=== PATIENT | male | born 1955 | race Two or more races ===

== ENCOUNTER 2025-01-29 15:49 | Inpatient (IN) | payer MEDICARE, MEDICAID ==
[~2025-01-29] VITALS: Ht 172.7 cm; Wt 60.5 kg
[2025-01-29] MEDS: SODIUM CHLORIDE 0.9% 500 ML IV ONE (16:15)
--- NOTE | 2025-01-29 16:18 | ED.PDOC ---
History of Present Illness HPI Comments 69 year old male with PMHx CHF, CKF, hyperkalemia, acute acidosis, kidney stones presents to the ED via EMS with a chief compliant of nausea/vomiting onset this morning around 03:50. Patient was transferred from [facility] due to hyperkalemia and kidney stones. Prior to transfer, patient was given Dilaudid for pain. CT brain was negative, CT abdomen/pelvis showed LT and RT hydronephrosis, acidotic ABG 7.26. Patient states he experienced about 4 emesis episodes since this morning. Denies chest pain, shortness of breath, fever, chills, headache. No other symptoms or modifying factors present at this time. Chief Complaint: Nausea/Vomiting Time Seen by MD: 16:05 Reviewed Notes: Nurses Notes, Medications, Allergies Allergies: Coded Allergies: NO KNOWN ALLERGIES (Unverified , 01/29/25) Information Source: Patient, Emergency Med Personnel Mode of Arrival: EMS Severity: Moderate Timing: Hours Duration: Since onset Prehospital treatment: Pain Meds Past Medical History PAST MEDICAL HISTORY: CHF, CKF, Kidney Stones Past Medical History (Other): hyperkalemia, acute acidosis Surgical History: Denies all surgeries Family History Family History: Reviewed,noncontributory to illness, No family hx of Cancer, No family hx of DM, No family hx of Heart misty, No family hx of HTN, No family hx ofKidney misty, No family hx of Liver misty, No family hx of Lung misty, No family hx of Stroke Social History Smoker: Non-Smoker Alcohol: Denies ETOH Use Drugs: Methamphetamine Lives In: Home Constitutional: denies: chills, diaphoresis, fatigue, fever, malaise, sweats, weakness, others EENTM: denies: blurred vision, double vision, ear bleeding, ear discharge, ear drainage, ear pain, ear ringing, eye pain, eye redness, hearing loss, mouth pain, mouth swelling, nasal discharge, nose bleeding, nose congestion, nose pain, photophobia, tearing, throat pain, throat swelling, voice changes, others Respiratory: denies: cough, hemoptysis, orthopnea, SOB at rest, shortness of breath, SOB with excertion, stridor, wheezing, others Cardiovascular: denies: chest pain, dizzy spells, diaphoresis, Dyspnea on exertion, edema, irregular heart beat, left arm pain, lightheadedness, palpitations, PND, syncope, others Gastrointestinal: reports: abdominal pain, nausea, vomiting; denies: abdomen distended, blood streaked bowels, constipated, diarrhea, dysphagia, difficulty swallowing, hematemesis, melena, poor appetite, poor fluid intake, rectal bleeding, rectal pain, others Genitourinary: denies: burning, dysuria, flank pain, frequency, hematuria, incontinence, penile discharge, penile sore, pain, testicle pain, testicle swelling, urgency, others Neurological: denies: dizziness, fainting, headache, left sided numbness, left sided weakness, numbness, paresthesia, pre-existing deficit, right sided numbness, right sided weakness, seizure, speech problems, tingling, tremors, weakness, others Musculoskeletal: denies: back pain, gout, joint pain, joint swelling, muscle pain, muscle stiffness, neck pain, others Integumetry: denies: bruises, change in color, change in hair/nails, dryness, laceration, lesions, lumps, rash, wounds, others Allergic/Immunocompromised: denies: Difficulty Healing, Frequent Infections, Hives, Itching, others Hematologic/Lymphatic: denies: anemia, blood clots, easy bleeding, easy bruising, swollen glands, others Endocrine: denies: excessive hunger, excessive sweating, excessive thirst, excessive urination, flushing, intolerance to cold, intolerance to heat, unexplained weight gain, unexplained weight loss, others Psychiatric: denies: anxiety, bipolar disorder, depression, hopeless, panic disorder, schizophrenia, sleepless, suicidal, others All Other Systems: Reviewed and Negative Physical Exam General Appearance: Moderate Distress HEENT: Normal ENT Inspection, Pharynx Normal, TMs Normal Neck: Full Range of Motion, Non-Tender, Normal, Normal Inspection Respiratory: Chest Non-Tender, Lungs Clear, No Accessory Muscle Use, No Respiratory Distress, Normal Breath Sounds Cardiovascular: No Edema, No JVD, No Murmur, No Gallop, Normal Peripheral Pulses, Regular Rate/Rhythm Breast Exam: Deferred Gastrointestinal: No Organomegaly, Non Tender, No Pulsatile Mass, Normal Bowel Sounds, Soft Genitalia: Deferred Pelvic: Deferred Rectal: Deferred Extremities: No calf tenderness, Normal capillary refill, No pedal edema Musculoskeletal : Location: Bilateral Extremity Location: Back Apperance: Tenderness: Moderate Neurologic: Alert, editor II-XII nml as Tested, Motor Weakness, Normal Affect, Normal Mood, No Sensory Deficits Cerebellar Function: Normal Reflexes: Normal Skin: Dry, Normal Color, Warm Lymphatic: No Adenopathy Was a procedure done? Was a procedure done?: No EKG EKG : Pulse Rate (adult): 114 Cardiac Rhythm: ST Block: RBBB Differential Dx Considerations may include: Generalized weakness, electrolyte imbalance, dehydration, UTI, kidney stones X-Ray, Labs, Meds, VS Vital Signs Date Time Temp Pulse Resp B/P (MAP) Pulse Ox O2 Delivery O2 Flow Rate FiO2 01/29/25 16:25 114 01/29/25 15:51 97.9 97 16 114/63 97 97.9 Lab Test 01/29/25 16:45 Range/Units White Blood Count 9.3 4.4-10.8 10^3/uL Red Blood Count 3.35 L 4.5-5.90 10^6/uL Hemoglobin 8.6 L 13.5-17.5 g/dL Hematocrit 28.7 L 41.0-53.0 % Mean Corpuscular Volume 85.7 80.0-100.0 fL Mean Corpuscular Hemoglobin 25.7 L 28.0-32.0 pg Mean Corpuscular Hemoglobin Concent 29.9 L 32.0-36.0 g/dL Red Cell Distribution Width 21.3 H 11.8-14.3 % Platelet Count 201 140-450 10^3/uL Mean Platelet Volume 7.6 6.9-10.8 fL Neutrophils (%) (Auto) 83.1 H 37.0-80.0 % Lymphocytes (%) (Auto) 7.3 L 10.0-50.0 % Monocytes (%) (Auto) 8.9 0.0-12.0 % Eosinophils (%) (Auto) 0.3 0.0-7.0 % Basophils (%) (Auto) 0.4 0.0-2.0 % Neutrophils # (Auto) 7.7 1.6-8.6 10 ^3/uL Lymphocytes # (Auto) 0.7 0.4-5.4 10 ^3/uL Monocytes # (Auto) 0.8 0-1.3 10 ^3/uL Eosinophils # (Auto) 0 0-0.8 10 ^3/uL Basophils # (Auto) 0 0-0.2 10 ^3/uL Nucleated Red Blood Cells 0.3 % Sodium Level 141 136-145 mmol/L Potassium Level 5.0 3.5-5.1 mmol/L Chloride Level 103 98-107 mmol/L Carbon Dioxide Level 18 L 20-31 mmol/L Anion Gap 20 H 5-15 Blood Urea Nitrogen Pending Creatinine Pending Glomerular Filtration Rate Calc Pending BUN/Creatinine Ratio Pending Serum Glucose Pending Calcium Level 8.7 8.7-10.4 mg/dL Troponin I High Sensitivity Pending The CBC shows a hemoglobin of 8.6 and hematocrit of 28.7 The platelets are 201 The chemistry panel is within normal limits. The troponin level is pending The patient was transferred from [facility] for possible urology consult. The patient's CAT scan revealed that the patient has bilateral kidney stones with hydronephrosis We are going to repeat a CAT scan of the abdomen and pelvis here but at this time the patient will be admitted A urology Images Reviewed?: Images reviewed and evaluated by me Time of 1ST Reevaluation: 16:35 Reevaluation 1ST: Unchanged Patient Education/Counseling: Diagnosis, Treatment, Prognosis Family Education/Counseling: No Family Present ( ) SEPSIS Sepsis Screen Date sepsis recognized/suspect: Jan 29, 2025 Time Sepsis recognized/suspect: 1553 Recent Procedure: No On Antibiotic Therapy: No Respiratory Rate >20: No Heart Rate >90: Yes Temp<36 C (96.8 F) or >38.3 C: No SBP <90 or MAP <65 mmHG: No New Acute Mental Status Change: No Is the patient on CPAP, BIPAP,: No Physician Orders Troponin-I Hs (01/29/25 16:14) Basic Metabolic Panel (01/29/25 16:14) Heplock Iv (01/29/25 16:14) Terminal Make Up Operator (01/29/25 16:14) Blood Pressure (01/29/25 16:14) Pulse Oximetry (01/29/25 16:14) Vital Signs Date Time Temp Pulse Resp B/P (MAP) Pulse Ox O2 Delivery O2 Flow Rate FiO2 01/29/25 16:25 114 01/29/25 15:51 97.9 97 16 114/63 97 97.9 Laboratory Tests Test 10/13/25 16:45 White Blood Count 9.3 10^3/uL (4.4-10.8) Departure 1 Departure Time of Disposition: 17:21 Impression: Primary Impression: Hyperkalemia Additional Impressions: Bilateral hydronephrosis Generalized weakness Disposition: ADMITTED INPATIENT Admit to: Med Surg Condition: Fair Critical Care Note Critical Care Time?: No Stability Stability form required: Yes Unstable for transfer: ED Physician Assesment (Clinical assesment) Heart Score Heart Score: Heart Score Response (Comments) Value History N/A 0 EKG N/A 0 Age N/A 0 Risk Factors N/A 0 Troponin N/A 0 Total 0 I personally scribed for VELMA PLUNKETT MD ([email or web address]) on 01/29/25 at 16:18. Electronically submitted by Harini Zapata ([email or web address]). I personally scribed for VELMA PLUNKETT MD ([email or web address]) on 01/29/25 at 16:25. Electronically submitted by Harini Zapata ([email or web address]). VELMA PLUNKETT MD Jan 29, 2025 16:18
[2025-01-29 17:03] LABS: Hematocrit 28.7 % (41.0-53.0); Hemoglobin 8.6 g/dL (13.5-17.5); Mean Corpuscular Hemoglobin 25.7 pg (28.0-32.0); Mean Corpuscular Volume 85.7 fL (80.0-100.0); Nucleated Red Blood Cells % 0.3 %
[2025-01-29 17:09] LABS: Anion Gap 20 (5-15); Chloride 103 mmol/L (98-107); Potassium 5.0 mmol/L (3.5-5.1); Sodium 141 mmol/L (136-145)
[2025-01-29 17:11] LABS: Calcium 8.7 mg/dL (8.7-10.4); Carbon Dioxide 18 mmol/L (20-31)
[2025-01-29 17:15] LABS: BUN/Creatinine Ratio 15.3 (10.0-20.0)
[2025-01-29 17:16] LABS: Blood Urea Nitrogen 63 mg/dL (9-23)
[2025-01-29 17:27] LABS: Glucose 40 mg/dL (74-106)
[2025-01-29] MEDS: DEXTROSE 50% SYRINGE 50 ML IV ONE (17:41)
[2025-01-29] MEDS ORDERED: D5W 5% 1,000 ML IV ONE (18:15)
[2025-01-29] MEDS ORDERED: DEXTROSE (50%) 50ML SYRG IV PRN (18:15)
--- NOTE | 2025-01-29 18:48 | DVHHPRES ---
History of Present Illness Resident Creating Document: PENG GUILLORY RESIDENT History of Present Illness This is a 69-year-old male with past medical history of coronary artery disease with stent placement eight months ago, End-stage renal disease (makes urine and has had one dialysis done until now -yesterday at [facility]), came in with chief complaints of abdominal pain, vomiting and diarrhea. Patient was transferred from [facility] due to hyperkalemia and hydronephrosis with a Geo catheter and Allred's catheter in place. Prior to transfer, patient was given Dilaudid for pain. Patient states that he had a sharp generalized abdominal pain which was acute, rates it as 10/10, constant and associated with 4 episodes of watery vomiting, which was not mixed with blood, as well as 4 episodes of watery diarrhea, which did not have any blood or mucus in it. He has not been able to keep anything down and states that he feels weakness and could hardly walk since yesterday. On inquiry patient states that he took marijuana one week ago, which also cause nausea and for him to throw up. Patient denies having any food from outside, has had no sick contacts or taken any new medication recently. He does not have any shortness of breath, chest pain but complains still of nausea. Patient also reported that he had one dialysis session yesterday at [facility] and that his kidneys are not working. He is a poor historian and does not know the other comorbidities he has, he states he does not take any medication at home but that he took Plavix and aspirin for a few months and stopped a few months ago believing it didnt really help him in anyway. Vitals on admission: temperature 97.9, pulse 97, re spiratory rate 16, blood pressure 04/19 4 x 63, pulse oximetry 97 at room temperature. Labs show hemoglobin of 8.6, MCV 85.7. BUN 63, creatinine 4.12, troponins 267, serum glucose 40-34-38. AST 2145, ALT 1848, ALP 158 and high troponins 267>292. Patient is getting admitted for further workup Past medical history: Coronary artery disease with a stent placement eight months ago, end-stage renal disease on hemodialysis Past surgical history: Denies any surgery in the past Family history: Patient states both mother and father due to [place] Social history: Patient lives at his home with his friends. He smokes 4-5 cigarettes per day now but previously used to smoke one pack per day for the past 60 years. He states he quit alcohol 37 years ago and does not drink anymore. He takes marijuana occasionally and the last one was one week ago. Used to take methamphetamine a while back. Allergies: None Code status: Full code Review of Systems Constitutional: No: Fever, Chills, Sweats, Weakness, Malaise, Other Eyes: No: Pain, Vision change, Conjunctivae inflammation, Eyelid inflammation, Other, Redness ENT: No: Ear pain, Ear discharge, Nose pain, Nose discharge, Nose congestion, Mouth pain, Mouth swelling, Throat pain, Throat swelling, Other Respiratory: No: Cough, Dry, Shortness of breath, SOB with excertion, Wheezing, Hemoptysis, Pleuritic Pain, Sputum, Wheezing, Other Cardiovascular: No: Chest Pain, Palpitations, Orthopnea, Paroxysmal Noc. Dyspnea, Edema, Lt Headedness, Other Gastrointestinal: Nausea, Vomiting, Abdominal Pain, Diarrhea; No: Constipation, Melena, Hematochezia, Other Skin: No: Rash, Lesions, Jaundice, Bruising, Other Neurological: No: Weakness, Numbness, Incoordination, Change in speech, Confusion, Seizures, Other Allergies: Coded Allergies: NO KNOWN ALLERGIES (Unverified , 01/29/25) Medications Current Medications Medications Dose Ordered Sig/Natan Route Start Time Stop Time Status Last Admin Dose Admin Diagnostic Test (Pha) 1 strip Q6HR 01/30/25 00:00 Insulin Human Regular Q6HR SC 01/30/25 00:00 Dextrose 50 ml UD PRN IV 01/29/25 18:15 Pantoprazole Sodium 40 mg DAILY IV 01/30/25 10:00 Ondansetron HCl 4 mg Q6HPRN PRN IV 01/29/25 18:15 Acetaminophen 650 mg Q4HP PRN PO 01/29/25 18:15 Exam Vital Signs Vital Signs Date Time Temp Pulse Resp B/P (MAP) Pulse Ox O2 Delivery O2 Flow Rate FiO2 01/29/25 16:25 114 01/29/25 15:51 97.9 16 114/63 97 97.9 Exam Pt is lying on bed General Appearance: Alert, Oriented X3, Cooperative, mild distress HEENT: Atraumatic, Mucous membranes moist/pink Respiratory: Clear to auscultation, Normal air movement, No added sounds Cardiovascular: Regular rate, Normal S1, Normal S2, No murmurs Abdominal: Active bowel sounds, Soft, no distention, no tenderness Extremities: No edema, Normal pulses, No tenderness/swelling Skin: No Significant rash, except past surgical scars Neuro: Normal speech, sensorimotor deficits none Psych/Mental Status: Mental status NL, Mood NL Nurse was there as community health outreach worker during examination Labs/Xrays Labs Test 01/29/25 17:38 01/29/25 16:45 Range/Units POC Glucose 38 *L 70-106 mg/dl White Blood Count 9.3 4.4-10.8 10^3/uL Red Blood Count 3.35 L 4.5-5.90 10^6/uL Hemoglobin 8.6 L 13.5-17.5 g/dL Hematocrit 28.7 L 41.0-53.0 % Mean Corpuscular Volume 85.7 80.0-100.0 fL Mean Corpuscular Hemoglobin 25.7 L 28.0-32.0 pg Mean Corpuscular Hemoglobin Concent 29.9 L 32.0-36.0 g/dL Red Cell Distribution Width 21.3 H 11.8-14.3 % Platelet Count 201 140-450 10^3/uL Mean Platelet Volume 7.6 6.9-10.8 fL Neutrophils (%) (Auto) 83.1 H 37.0-80.0 % Lymphocytes (%) (Auto) 7.3 L 10.0-50.0 % Monocytes (%) (Auto) 8.9 0.0-12.0 % Eosinophils (%) (Auto) 0.3 0.0-7.0 % Basophils (%) (Auto) 0.4 0.0-2.0 % Neutrophils # (Auto) 7.7 1.6-8.6 10 ^3/uL Lymphocytes # (Auto) 0.7 0.4-5.4 10 ^3/uL Monocytes # (Auto) 0.8 0-1.3 10 ^3/uL Eosinophils # (Auto) 0 0-0.8 10 ^3/uL Basophils # (Auto) 0 0-0.2 10 ^3/uL Nucleated Red Blood Cells 0.3 % Sodium Level 141 136-145 mmol/L Potassium Level 5.0 3.5-5.1 mmol/L Chloride Level 103 98-107 mmol/L Carbon Dioxide Level 18 L 20-31 mmol/L Anion Gap 20 H 5-15 Blood Urea Nitrogen 63 H 9-23 mg/dL Creatinine 4.12 H 0.700-1.30 mg/dL Glomerular Filtration Rate Calc 15 >90 mL/min BUN/Creatinine Ratio 15.3 10.0-20.0 Serum Glucose 40 *L 74-106 mg/dL Calcium Level 8.7 8.7-10.4 mg/dL Troponin I High Sensitivity 267 *H </=54 ng/L SEPSIS Sepsis Screen Date sepsis recognized/suspect: Jan 29, 2025 Time Sepsis recognized/suspect: 1553 Recent Procedure: No On Antibiotic Therapy: No Respiratory Rate >20: No Heart Rate >90: Yes Temp<36 C (96.8 F) or >38.3 C: No SBP <90 or MAP <65 mmHG: No New Acute Mental Status Change: No Is the patient on CPAP, BIPAP,: No Physician Orders Heplock Iv (01/29/25 16:14) Java Integration Developer (01/29/25 16:14) Blood Pressure (01/29/25 16:14) Pulse Oximetry (01/29/25 16:14) Admit (01/29/25 18:06) Oxygen By Nasal Cannula (01/29/25 18:06) Stat Ekg For Chest Pain (01/29/25 18:06) Notify Md Of Changes From Base (01/29/25 18:06) Inpatient Nursing Aide For 24 Hours (01/29/25 18:06) Emergency Dysrhythmia Protocol (01/29/25 18:06) Rhythm Strips Once Every Shift (01/29/25 18:06) Electrocardigram (01/29/25 18:06) Troponin-I Hs (01/29/25 18:06) B-Type Natriuretic Peptide (01/29/25 18:06) Ct Ab Pel Wo Con-No Oral Or Iv (01/29/25 18:06) Troponin-I Hs (01/29/25 19:06) Urinalysis (01/29/25 18:06) Drug Screen (01/29/25 18:06) Blood Alcohol (01/29/25 18:06) Chest Portable (01/29/25 18:06) Glucose Blood (Accu-Chek Comfort Curve T (01/30/25 00:00) Insulin R (Human) (Insulin R) (01/30/25 00:00) Dextrose 50% Syringe (01/29/25 18:15) D5w 5% (Dextrose 5%) (01/29/25 18:15) Covid19 Antigen Dejah (01/29/25 ) Echo 2d Mode Cardiac Dop (01/29/25 18:06) *[facility] (01/29/25 18:06) Hepatic Panel (01/29/25 18:06) Clostridium Difficile Toxin (01/29/25 18:06) Stool Bacterial Culture (01/29/25 18:06) Stool Wbc (01/29/25 18:06) Pantoprazole (Protonix) (01/30/25 10:00) Ondansetron Hcl (Zofran) (01/29/25 18:15) Acetaminophen Tablet (Tylenol Tablet) (01/29/25 18:15) Aspirin Tablet (01/29/25 18:30) Atorvastatin (Lipitor) (01/29/25 18:30) Vital Signs Date Time Temp Pulse Resp B/P (MAP) Pulse Ox O2 Delivery O2 Flow Rate FiO2 01/29/25 16:25 114 01/29/25 15:51 97.9 97 16 114/63 97 97.9 Laboratory Tests Test 01/29/25 16:45 White Blood Count 9.3 10^3/uL (4.4-10.8) Assessment/Plan Assessment/Plan Possible gastroenteritis transaminitis -ast 2145, alt 1848, ALP 158 -500 bolus of 0.5 mL saline once -Zofran 4 mg IV q.6 PRN -pain control with acetaminophen 650 mg p.o. q.4 PRN -IV Protonix 40 mg -stool WBC -stool bacterial culture -Clostridium difficile -UA -UDS -serum alcohol level normal -hepatitis panel -COVID test -hepatic panel B/L hydronephrosis on imaging ESRD on hemodialysis Anemia of chronic disease due to above -creatinine 4.12, BUN 63 -CT abdomen pelvis without contrast shows: Relatively mild bilateral hydronephrosis with thickened urinary bladder and Allred catheter in-situ. -nephrology consult -allred catheter acute systolic/diastolic CHF NSTEMI likely Type 2 History of coronary artery disease -troponin I elevated 267>297 -BNP- 2207 -EKG -telemetry -Aspirin 162 mg once -Atorvastatin 80 mg -Echo,pending -CXR shows: Findings may represent congestive failure or fluid overload; In ternal jugular catheter in the superior vena cava above the right atrium. Hypoglycemia ( 40 on admission) -dextrose 50% syringe once -D5W 5% IV 30 mL/hour 1 bolus -Accu-Cheks GI prophylaxis: Protonix 40 mg IV daily Diet: Clear liquid diet Goals of care discussed with the patient for more than 27 minutes: Full code status Case discussed with Dr. Guajardo, patient and nurse. Plan discussed with: Patient My Orders Orders - PENG GUILLORY RESIDENT Procedure Category Date Status Time Admit ADMIT 01/29/25 Transmitted 18:06 Oxygen By Nasal RT 01/29/25 Transmitted Cannula 18:06 Stat Ekg For Chest [facility] 01/29/25 In Process Pain 18:06 Notify Md Of Changes [facility] 01/29/25 In Process From Base 18:06 Inpatient Nursing Aide For [facility] 01/29/25 In Process 24 Hours 18:06 Emergency Dysrhythmia [facility] 01/29/25 In Process Protocol 18:06 Rhythm Strips Once [facility] 01/29/25 In Process Every Shift 18:06 Electrocardigram EKG 01/29/25 Logged 18:06 Troponin-I Hs LAB 01/29/25 Logged 18:06 B-Type Natriuretic LAB 01/29/25 Logged Peptide 18:06 Ct Ab Pel Wo Con-No CT 01/29/25 Logged Oral Or Iv 18:06 Troponin-I Hs LAB 01/29/25 Logged 19:06 Urinalysis LAB 01/29/25 Logged 18:06 Drug Screen LAB 01/29/25 Logged 18:06 Blood Alcohol LAB 01/29/25 Logged 18:06 Chest Portable XY 01/29/25 Logged 18:06 Glucose Blood PHA 01/30/25 In Process (Accu-Chek Comfort 00:00 Insulin R (Human) PHA 01/30/25 In Process (Insulin R) 00:00 Dextrose 50% Syringe PHA 01/29/25 In Process 18:15 D5w 5% (Dextrose 5%) PHA 01/29/25 In Process 18:15 Covid19 Antigen Dejah LAB 01/29/25 Logged Echo 2d Mode Cardiac US 01/29/25 Logged DOP 18:06 *[facility] CONS 01/29/25 Transmitted -[place] 18:06 Hepatic Panel LAB 01/29/25 Logged 18:06 Clostridium Difficile MYKEL 01/29/25 Logged Toxin 18:06 Stool Bacterial MYKEL 01/29/25 Logged Culture 18:06 Stool Wbc LAB 01/29/25 Logged 18:06 Pantoprazole PHA 01/30/25 In Process (Protonix) 10:00 Ondansetron Hcl PHA 01/29/25 In Process (Zofran) 18:15 Acetaminophen Tablet PHA 01/29/25 In Process (Tylenol Tablet) 18:15 Aspirin Tablet PHA 01/29/25 Verified 18:30 Atorvastatin (Lipitor) PHA 01/29/25 Verified 18:30 PENG GUILLORY RESIDENT Jan 29, 2025 18:48
--- NOTE | 2025-01-29 19:09 | DVH ---
Exam: CT CT AB PEL WO CON-NO ORAL OR IV History: bilateral hydronephrosis Comparison Study: CT ABDOMEN PELVIS WITHOUT on DOS: 01/29/25, CT ABDOMEN PELVIS WITHOUT on DOS: 04/02, CT ABDOMEN PELVIS WITHOUT on DOS: 12/12/23, CT ABDOMEN PELVIS WITHOUT on DOS: 04/18/22 Technique: Multidetector spiral CT of the abdomen was performed from lung bases to pubic symphysis. I maging was performed without IV contrast. Axial, coronal and sagittal multiplanar reformats were obta ined from the axial data set by the technologist. Radiation Dose : 1. Abdomen/Pelvis: CTDIvol 7.18 mGy, DLP 386.03 mGy*cm. Findings: Evaluation of solid organs is limited due to lack of intravenous contrast use. Lung Bases: Mild dependent atelectatic changes. Liver: The liver is normal in size. No focal lesions. Gallbladder and Biliary Tree: Unremarkable Spleen: Unremarkable Pancreas: The pancreas is grossly normal in appearance. Adrenal Glands: Unremarkable Kidneys: Mild bilateral hydronephrosis. Multiple bilateral nonobstructing renal calculi. Few calcific ations in the left renal pelvis a little likely nonobstructing. Bladder: Baxter catheter in-situ. Urinary bladder appears thickened. Bowel: The stomach is grossly normal in appearance. Small bowel and colon are normal in caliber and d istribution. The appendix is not visualized; however, no secondary findings of acute appendicitis myriam ntified. Ascites: Absent Lymphadenopathy: No mesenteric, retroperitoneal or periportal lymphadenopathy. Abdominal Wall and Mesentery: Fat containing left inguinal hernia.. Vasculature: Diffuse vascular calcifications. Pelvic Organs: Unremarkable Musculoskeletal: No aggressive focal bony lesions, acute fractures or dislocation. IMPRESSION: Relatively mild bilateral hydronephrosis with thickened urinary bladder and Baxter catheter in-situ. Radiation optimization: All CT scans at this facility use at least one of these dose optimization earlene hniques: automated exposure control mA and/or kV adjustment per patient size (includes targeted exam s where dose is matched to clinical indication) or iterative reconstruction.
--- NOTE | 2025-01-29 19:13 | ECG ---
[facility] Test Date: 2025-01-29 Test Time: 16:00:14 Pat Name: AMARILIS RECINOS Department: [facility] ED Patient ID: [facility]-[id number] Room: [address] [place] [address] Gender: M Cp Bleacher Operator: shante : 1955 Requested By: PENG GUILLORY Order Number: [id number] Reading MD: Aman Saeed Measurements Intervals [place] Rate: 114 P: 0 GA: 128 QRS: 48 QRSD: 115 T: 239 QT: 382 QTc: 527 Interpretive Statements Sinus tachycardia Incomplete right bundle branch block Repol abnrm, prob ischemia, anterolateral lds Electronically Signed On 01-30-2025 15:24:38 PDT by Aman Saeed Please click the below link to view image of tracing.
--- NOTE | 2025-01-29 19:14 | DVH ---
CHEST RADIOGRAPH Indication: sob Technique: Single frontal view of the chest was obtained Comparison: XR CHEST 1 VIEW on DOS: 01/29/25, XR CHEST 1 VIEW on DOS: 01/29/25, XR CHEST 1 VIEW on DO S: 12/12/23 FINDINGS: Lines and Tubes: Right internal jugular catheter in place in the superior vena cava above the right a trium. Lungs: Mild pulmonary vascular congestion. Pleura: No effusion. No pneumothorax. Cardiomediastinal contours: Mild cardiomegaly Bones: No acute osseous abnormality. IMPRESSION: 1. Findings may represent congestive failure or fluid overload. 2. Internal jugular catheter in the superior vena cava above the right atrium.
[2025-01-29 19:30] LABS: Albumin 3.6 g/dL (3.2-4.8); Bilirubin, Direct 0.2 mg/dL (<0.3); Bilirubin, Total 0.5 mg/dL (0.2-1.0); Total Protein 7.2 g/dL (5.7-8.2)
[2025-01-29 19:31] LABS: Alkaline Phosphatase 158.0 U/L (46-116)
[2025-01-29 19:43] LABS: Alanine Aminotransferase 1848.0 U/L (7-40)
[2025-01-29] MEDS: ATORVASTATIN 20 MG TAB PO ONE (20:37)
[2025-01-29] MEDS: PANTOPRAZOLE 40 MG/10 ML VIAL INJ IV ONE (20:43)
[2025-01-29] MEDS: PIPERACILLIN-TAZOB 3.375GM 100 ML IV ONE (20:44)
[2025-01-29] MEDS: ONDANSETRON HCL 4 MG/2 ML VIAL IV PRN (20:50)
[2025-01-29 22:27] VITALS: PULSE 103; RESP 15; O2SAT 100
[2025-01-29] MEDS: HEPARIN SODIUM (PORCINE) 5000 UNITS/ML 1ML VIAL SC SCH (22:50)
[2025-01-30] MEDS: InsuLIN REG 1unit/0.01ml Soln (100units/ml) SC SCH
[2025-01-30] MEDS: ACCU-CHEK COMFORT CURVE STRIP VI SCH (00:14)
[2025-01-30 01:16] LABS: COVID19 ANTIGEN SOFIA FIA NEGATIVE (NEGATIVE)
[2025-01-30 03:03] LABS: Urine Protein, UAD 2+ (Negative); Urine WBC Clumps PRESENT /hpf (None Seen)
[2025-01-30 03:26] LABS: Amphetamine Screen, Urine Neg (NEGATIVE)
[2025-01-30 03:27] LABS: Cannabinoid Screen, Urine Neg (NEGATIVE); Opiate Scree,Urine Neg (NEGATIVE)
[2025-01-30 03:30] LABS: Barbiturate Scree,Urine Neg (NEGATIVE); Benzodiazephine Screen, Urine Neg (NEGATIVE); Cocaine Screen, Urine Neg (NEGATIVE); Phencyclidine Screen, Urine Neg (NEGATIVE)
[2025-01-30 05:47] LABS: Albumin 3.5 g/dL (3.2-4.8); Total Protein 7.0 g/dL (5.7-8.2)
[2025-01-30 05:58] LABS: Alkaline Phosphatase 155.0 U/L (46-116); Bilirubin, Direct 0.3 mg/dL (<0.3)
[2025-01-30 06:01] LABS: Alanine Aminotransferase 1708.0 U/L (7-40)
[2025-01-30 06:09] LABS: Bilirubin, Total 0.6 mg/dL (0.2-1.0)
[2025-01-30 06:44] LABS: Hematocrit 27.2 % (41.0-53.0); Hemoglobin 8.8 g/dL (13.5-17.5); Mean Corpuscular Hemoglobin 25.6 pg (28.0-32.0); Mean Corpuscular Volume 79.7 fL (80.0-100.0); Nucleated Red Blood Cells % 0.9 %
[2025-01-30 07:50] LABS: Albumin 3.4 g/dL (3.2-4.8); Anion Gap 14 (5-15); BUN/Creatinine Ratio 15.1 (10.0-20.0); Bilirubin, Total 0.6 mg/dL (0.2-1.0); Carbon Dioxide 26 mmol/L (20-31); Chloride 103 mmol/L (98-107); Sodium 143 mmol/L (136-145); Total Protein 6.8 g/dL (5.7-8.2)
[2025-01-30 08:00] VITALS: PULSE 104; RESP 20; O2SAT 99
[2025-01-30 08:02] LABS: Alanine Aminotransferase 1726 U/L (7-40); Alkaline Phosphatase 156 U/L (46-116); Blood Urea Nitrogen 72 mg/dL (9-23); Calcium 8.5 mg/dL (8.7-10.4); Glucose 64 mg/dL (74-106); Potassium 5.4 mmol/L (3.5-5.1)
[2025-01-30] MEDS: PANTOPRAZOLE 40 MG/10 ML VIAL INJ IV SCH (10:13)
[2025-01-30] MEDS: PIPERACILLIN-TAZOB 2.25GM 50 ML IV SCH (10:13)
--- NOTE | 2025-01-30 11:45 | ECG ---
[facility] Test Date: 2025-01-30 Test Time: 00:02:17 Pat Name: AMARILIS RECINOS Department: [facility] ED Patient ID: [facility]-[id number] Room: [address] [place] [address] Gender: M Limited Radiology Technician: HAMILTON : 1955 Requested By: PENG GUILLORY Order Number: [id number] Reading MD: Aman Saeed Measurements Intervals [place] Rate: 103 P: 74 AR: 173 QRS: -17 QRSD: 112 T: 221 QT: 369 QTc: 483 Interpretive Statements Sinus tachycardia Incomplete right bundle branch block Repol abnrm suggests ischemia, diffuse leads Electronically Signed On 01-30-2025 15:25:03 PDT by Aman Saeed Please click the below link to view image of tracing.
--- NOTE | 2025-01-30 14:37 | DVHPNRES ---
Progress Note Date Seen: Jan 30, 2025 Resident Creating Document: PENG GUILLORY RESIDENT Has the PT tested + for MRSA If YES, has PT been informed?: No Medical Necessity Reason Pt with a Central, PICC or Fol: No Subjective Review of Systems This is a 69-year-old male with past medical history of coronary artery disease with stent placement eight months ago, End-stage renal disease (makes urine and has had one dialysis done until now -yesterday at [facility]), came in with chief complaints of abdominal pain, vomiting and diarrhea. Patient was transferred from [facility] due to hyperkalemia and hydronephrosis with a Geo catheter and Allred's catheter in place. Prior to transfer, patient was given Dilaudid for pain. Patient states that he had a sharp generalized abdominal pain which was acute, rates it as 10/10, constant and associated with 4 episodes of watery vomiting, which was not mixed with blood, as well as 4 episodes of watery diarrhea, which did not have any blood or mucus in it. He has not been able to keep anything down and states that he feels weakness and could hardly walk since yesterday. On inquiry patient states that he took marijuana one week ago, which also cause nausea and for him to throw up. Patient denies having any food from outside, has had no sick contacts or taken any new medication recently. He does not have any shortness of breath, chest pain but complains still of nausea. Patient also reported that he had one dialysis session yesterday at [facility] and that his kidneys are not working. He is a poor historian and does not know the other comorbidities he has, he states he does not take any medication at home but that he took Plavix and aspirin for a few months and stopped a few months ago believing it didnt really help him in any way. Past medical history: Coronary artery disease with a stent placement eight months ago, end-stage renal disease on hemodialysis Past surgical history: Denies any surgery in the past Family history: Patient states both mother and father due to [place] Social history: Patient lives at his home with his friends. He smokes 4-5 cigarettes per day now but previously used to smoke one pack per day for the past 60 years. He states he quit alcohol 37 years ago and does not drink anymore. He takes marijuana occasionally and the last one was one week ago. Used to take methamphetamine a while back. Allergies: None Code status: Full code 01/30/2025: Patient was seen and examined by me today. Patient reports feeling much better than yesterday. We are doing a cardiology consult as there were T- wave changes multiple leads and troponins are up trending. cardiology on board. Objective vital signs Vital Sign Date Time Temp Pulse Resp B/P (MAP) Pulse Ox O2 Delivery O2 Flow Rate FiO2 01/30/25 12:00 103 18 111/69 (83) 100 01/30/25 08:00 98.4 98.4 01/30/25 08:00 Nasal Cannula* 2 28 Total Intake and Output 01/29/25 01/29/25 01/30/25 15:00 23:00 07:00 Intake Total 100 ml Balance 100 ml medications Current Medications Medications Dose Ordered Sig/Natan Route Start Time Stop Time Status Last Admin Dose Admin Diagnostic Test (Pha) 1 strip Q6HR 01/30/25 00:00 01/30/25 12:00 1 STRIP Insulin Human Regular Q6HR SC 01/30/25 00:00 Dextrose 50 ml UD PRN IV 01/29/25 18:15 Pantoprazole Sodium 40 mg DAILY IV 01/30/25 10:00 01/30/25 10:13 40 MG Ondansetron HCl 4 mg Q6HPRN PRN IV 01/29/25 18:15 01/29/25 20:50 4 MG Acetaminophen 650 mg Q4HP PRN PO 01/29/25 18:15 Heparin Sodium (Porcine) 5,000 units Q12HR SC 01/29/25 22:00 01/30/25 10:15 5,000 UNITS Piperacillin Sod/ Tazobactam Sod 50 ml @ 12.5 mls/hr Q12HR IV 01/30/25 10:00 01/30/25 10:13 12.5 MLS/HR Examination Pt is lying on bed General Appearance: Alert, Oriented X3, Cooperative, mild distress HEENT: Atraumatic, Mucous membranes moist/pink Respiratory: Clear to auscultation, Normal air movement, No added sounds Cardiovascular: Regular rate, Normal S1, Normal S2, No murmurs Abdominal: Active bowel sounds, Soft, no distention, no tenderness Extremities: No edema, Normal pulses, No tenderness/swelling Skin: No Significant rash, except past surgical scars Neuro: Normal speech, sensorimotor deficits none Psych/Mental Status: Mental status NL, Mood NL Nurse was there as tile mechanic during examination laboratory and microbiology Laboratory Tests 01/30/25 06:04 Test 01/30/25 06:04 Range/Units Serum Glucose 64 L 74-106 mg/dL Labs and/or images reviewed: Labs reviewed by me, Image(s) reviewed by me Problem List/Assessment/Plan Problem List/Assessment/Plan Possible gastroenteritis transaminitis -ast 2145, alt 1848, ALP 158, uptrending today -500 bolus of 0.5 mL saline once -Zofran 4 mg IV q.6 PRN -pain control with acetaminophen 650 mg p.o. q.4 PRN -IV Protonix 40 mg -stool WBC -stool bacterial culture -Clostridium difficile -UA -UDS -serum alcohol level normal -hepatitis panel -COVID test -hepatic panel B/L hydronephrosis on imaging ESRD on hemodialysis Anemia of chronic disease due to above UTI -creatinine 4.12, BUN 63 -CT abdomen pelvis without contrast shows: Relatively mild bilateral hydronephrosis with thickened urinary bladder and Allred catheter in-situ. -UA shows color brown, protein 2+, blood 3+, leukocyte esterase 2+, urine RBC 202, urine WBC clumps present, WBC 2795 -nephrology consult -allred catheter acute systolic/diastolic CHF NSTEMI likely Type 2 History of coronary artery disease -troponin I elevated 267> 297> 448> 585> 891> 814 -BNP- 2207 -EKG on 01/30: Sinus tachycardia; Incomplete right bundle branch block; Repol abnrm suggests ischemia, diffuse leads -telemetry -Aspirin 162 mg once -Atorvastatin 80 mg -Echo,pending -CXR shows: Findings may represent congestive failure or fluid overload; Internal jugular catheter in the superior vena cava above the right atrium. -cardiology consult suggested transthoracic echocardiogram to evaluate cardiac function, chest pain protocol heart score 8 points, HOSSEIN score of 4 points, heparin drip per ACS protocol, antiplatelet therapy, initiate lipid-lowering agent with improved LFTs, close cardiac surveillance Hypoglycemia ( 40 on admission) -dextrose 50% syringe once -D5W 5% IV 30 mL/hour 1 bolus -Accu-Cheks GI prophylaxis: Protonix 40 mg IV daily Diet: Clear liquid diet Goals of care discussed with the patient for more than 27 minutes: Full code status Case discussed with Dr. Guajardo, patient and nurse. Plan discussed with: Patient My Orders My Orders Orders - PENG GUILLORY RESIDENT Procedure Category Date Status Time Admit ADMIT 01/29/25 Transmitted 18:06 Oxygen By Nasal RT 01/29/25 Transmitted Cannula 18:06 Stat Ekg For Chest CINDY 01/29/25 In Process Pain 18:06 Notify Of Changes CINDY 01/29/25 In Process From Base 18:06 Director Government For CINDY 01/29/25 In Process 24 Hours 18:06 Emergency Dysrhythmia CINDY 01/29/25 In Process Protocol 18:06 Rhythm Strips Once CINDY 01/29/25 In Process Every Shift 18:06 Ct Ab Pel Wo Con-No CT 01/29/25 Resulted Oral Or Iv 18:06 Chest Portable XY 01/29/25 Resulted 18:06 Glucose Blood PHA 01/30/25 In Process (Accu-Chek Comfort 00:00 Insulin R (Human) PHA 01/30/25 In Process (Insulin R) 00:00 Dextrose 50% Syringe PHA 01/29/25 In Process 18:15 *Dr. [facility] CONS 01/29/25 Transmitted -[place] 18:06 Clostridium Difficile MYKEL 01/29/25 Logged Toxin 18:06 Stool Bacterial MYKEL 01/29/25 Logged Culture 18:06 Stool Wbc LAB 01/29/25 Logged 18:06 Pantoprazole PHA 01/30/25 In Process (Protonix) 10:00 Ondansetron Hcl PHA 01/29/25 In Process (Zofran) 18:15 Acetaminophen Tablet PHA 01/29/25 In Process (Tylenol Tablet) 18:15 Acute Hepatitis Panel LAB 01/29/25 In Process 19:56 Heparin Sodium PHA 01/29/25 In Process (Porcine) 22:00 Mrsa Screen MYKEL 01/29/25 Uncollected 19:56 Urine Bacterial MYKEL 01/29/25 Uncollected Culture 19:56 Piperacillin-Tazob PHA 01/30/25 In Process 2.25gm (Zosyn 2.25gm) 10:00 Clear Liq Diet DIET 01/30/25 Transmitted Breakfast Troponin-I Hs LAB 01/30/25 Logged 14:43 * Cardiology Consult CONS 01/30/25 Transmitted 11:44 Date of Service: Jan 30, 2025 Billing Provider: HOLLY GUAJARDO MD, SREYA RESIDENT Jan 30, 2025 14:37
--- NOTE | 2025-01-30 16:09 | DVHINCON2 ---
Date Seen: Jan 30, 2025 Referring Physician MD Alyx resident Reason for Consultation Chest pain, increasing troponin levels, history of CAD History of Present Illness This is a 69-year-old male patient who presents to emergency room with chief complaint of nausea, vomiting, chest pain, and abdominal pain for two days prior to emergency room arrival. The patient was initially seen at [facility] and transferred to this facility for higher level of care. Cardiology has been consulted at this time for elevated troponin level. Initial twelve lead electrocardiogram reveals sinus tachycardia with right bundle branch block. Initial troponin level of 267ng/L with up trend and peak level at 891ng/L. Significant past medical history includes coronary artery disease x 1 ADRIAN (not compliant with DAPT), myocardial infarction, hypertension, dyslipidemia, and kidney stones. The patient is a very poor historian, but mentions that he underwent a coronary angiogram with left heart catheterization approximately three months ago in [place] where one stent was placed. He admits he has not been compliant with his dual antiplatelet therapy since discharge from the hospital in [place]. He also admits to recent methamphetamine use one week ago. Past Medical History Past medical history reviewed. No other significant than mentioned above. Past Surgical History Denies any previous surgeries Family History Family history reviewed. Social History Patient has a 20 pack-year history, smokes half pack per day Admits to amphetamine use Denies alcohol use Allergies: Coded Allergies: NO KNOWN ALLERGIES (Unverified , 01/29/25) Home Meds Medical noncompliance, states he does not take his prescribed medications Current Medications Current Medications Medications (Trade) Dose Ordered Sig/Natan Route PRN Reason Start Time Stop Time Status Last Admin Diagnostic Test (Pha) (Accu-Chek Comfort Curve T) 1 strip Q6HR 01/30/25 00:00 01/30/25 12:00 Insulin Human Regular (InsuLIN R) Q6HR SC 01/30/25 00:00 Dextrose 50 ml UD PRN IV Blood Sugar LESS THAN 60 01/29/25 18:15 Pantoprazole Sodium (Protonix) 40 mg DAILY IV 01/30/25 10:00 01/30/25 10:13 Ondansetron HCl (Zofran) 4 mg Q6HPRN PRN IV NAUSEA / VOMITING 01/29/25 18:15 01/29/25 20:50 Acetaminophen (Tylenol Tablet) 650 mg Q4HP PRN PO MODERATE PAIN (4-6 PAIN SCALE) 01/29/25 18:15 Heparin Sodium (Porcine) 5,000 units Q12HR SC 01/29/25 22:00 01/30/25 10:15 Piperacillin Sod/ Tazobactam Sod 50 ml @ 12.5 mls/hr Q12HR IV 01/30/25 10:00 01/30/25 10:13 Review of Systems Constitutional: No symptom reported Ears, Nose, & Throat: No symptom reported Eyes: No symptom reported Neurological: No symptoms reported Pulmonary/Respiratory: No symptoms reported Cardiovascular: Chest pain Gastrointestinal: Abdominal pain, nausea and vomiting Genitourinary: No symptom reported Musculoskeletal: No symptom reported Skin: No symptom reported Psychiatric: No symptom reported Endocrine: No symptom reported Hematologic/Lymphatic: No symptom reported Vital Signs Vital Signs Date Time Temp Pulse Resp B/P (MAP) Pulse Ox O2 Delivery O2 Flow Rate FiO2 01/30/25 15:00 95 12 98/62 (74) 99 01/30/25 08:00 98.4 98.4 01/30/25 08:00 Nasal Cannula* 2 28 Physical Exam General Appearance: Cooperative. Well-developed. Well-nourished. No acute distress. Pulmonary/Respiratory: Clear, bilateral breaths sounds. Cardiovascular/Chest: Regular rate and rhythm. Peripheral Pulses: 2+ Radial (R). 2+ Radial (L). 2+ Pedal (R). 2+ Pedal (L) Abdominal Exam: Normal bowel sounds. Ankle Exam: Negative ankle edema Lower extremities: Negative lower extremity edema Neuro/Mental Status: A/OX4, coherent. Thoughts/Psych: Normal thought pattern. Appropriate mood and affect. Good judgment and insight. Appearance: No acute distress. Skin Exam: Normal inspection. Normal color. Warm and dry. Labs/Diagnostic Data Labs Test 01/30/25 15:16 01/30/25 12:10 01/30/25 06:04 01/30/25 05:04 Range/Units Troponin I High Sensitivity 841 *H </=54 ng/L POC Glucose 91 70-106 mg/dl White Blood Count 7.8 4.4-10.8 10^3/uL Red Blood Count 3.42 L 4.5-5.90 10^6/uL Hemoglobin 8.8 L 13.5-17.5 g/dL Hematocrit 27.2 L 41.0-53.0 % Mean Corpuscular Volume 79.7 #L 80.0-100.0 fL Mean Corpuscular Hemoglobin 25.6 L 28.0-32.0 pg Mean Corpuscular Hemoglobin Concent 32.2 32.0-36.0 g/dL Red Cell Distribution Width 21.0 H 11.8-14.3 % Platelet Count 198 140-450 10^3/uL Mean Platelet Volume 7.6 6.9-10.8 fL Neutrophils (%) (Auto) 74.7 37.0-80.0 % Lymphocytes (%) (Auto) 10.9 10.0-50.0 % Monocytes (%) (Auto) 12.7 H 0.0-12.0 % Eosinophils (%) (Auto) 0.5 0.0-7.0 % Basophils (%) (Auto) 1.2 0.0-2.0 % Neutrophils # (Auto) 5.8 1.6-8.6 10 ^3/uL Lymphocytes # (Auto) 0.8 0.4-5.4 10 ^3/uL Monocytes # (Auto) 1.0 0-1.3 10 ^3/uL Eosinophils # (Auto) 0 0-0.8 10 ^3/uL Basophils # (Auto) 0.1 0-0.2 10 ^3/uL Nucleated Red Blood Cells 0.9 % Sodium Level 143 136-145 mmol/L Potassium Level 5.4 H 3.5-5.1 mmol/L Chloride Level 103 98-107 mmol/L Carbon Dioxide Level 26 20-31 mmol/L Anion Gap 14 5-15 Blood Urea Nitrogen 72 H 9-23 mg/dL Creatinine 4.78 H 0.700-1.30 mg/dL Glomerular Filtration Rate Calc 12 >90 mL/min BUN/Creatinine Ratio 15.1 10.0-20.0 Serum Glucose 64 L 74-106 mg/dL Calcium Level 8.5 L 8.7-10.4 mg/dL Total Bilirubin 0.6 0.2-1.0 mg/dL Aspartate Amino Transferase (AST) 1591 H 13-40 U/L Alanine Aminotransferase (ALT) 1726 H 7-40 U/L Alkaline Phosphatase 156 H 46-116 U/L Total Protein 6.8 5.7-8.2 g/dL Albumin 3.4 3.2-4.8 g/dL Direct Bilirubin 0.3 <0.3 mg/dL Test 01/30/25 00:30 01/29/25 20:26 01/29/25 18:48 Range/Units Urine Color Brown H Yellow Urine Clarity Ex.turbid Clear Urine pH 6.5 5.0-9.0 Urine Specific [place] 1.013 1.001-1.035 Urine Protein 2+ H Negative Urine Ketones Negative Negative Urine Blood 3+ H Negative /uL Urine Nitrite Negative Negative Urine Bilirubin Negative Negative Urine Urobilinogen Normal Negative mg/dL Urine Leukocyte Esterase 2+ Negative /uL Urine RBC 202 0 - 3 /hpf Urine WBC Clumps Present None Seen /hpf Urine Microscopic WBC 2795 H 0-3 /HPF Urine Squamous Epithelial Cells None seen <5 /hpf Urine Bacteria None seen None Seen /hpf Urine Glucose Normal Normal mg/dL Urine Opiates Screen Neg NEGATIVE Urine Fentanyl Screen Neg NEGATIVE Urine Barbiturates Screen Neg NEGATIVE Urine Phencyclidine Screen Neg NEGATIVE Urine Amphetamines Screen Neg NEGATIVE Urine Benzodiazepines Screen Neg NEGATIVE Urine Cocaine Screen Neg NEGATIVE Urine Cannabinoids Screen Neg NEGATIVE Influenza Type A Antigen Negative Negative Influenza Type B Antigen Negative Negative SARS-CoV-2 Antigen (Rapid) Negative NEGATIVE Acetaminophen Level < 2.0 L 10.0-20.0 UG/ML B-Type Natriuretic Peptide 2207.62 0-100 pg/mL Plasma/Serum Blood Alcohol 4.4 <10 mg/dL Assessment NSTEMI rule out progressive coronary artery disease Rule out InStent thrombosis/restenosis Rule out structural heart disease Coronary artery disease status post PTCA X 1 ADRIAN (noncompliant with dual antiplatelet therapy) Hypertension Dyslipidemia Hyperkalemia Transaminitis End-stage renal disease now on hemodialysis Methamphetamine use Tobacco use Medical noncompliance Plan/Recommendation We will continue with the following plan/recommendations (Dr. Turner): * Transthoracic echocardiogram to evaluate cardiac function * Chest pain protocol * HEART score: 8 points (high score) * HOSSEIN score: 4 points * Heparin drip per ACS protocol * Antiplatelet therapy * Initiate lipid-lowering agent with improved LFTs * Close cardiac surveillance Case discussed with . Further recommendations per clinical course and progression. Thank you for allowing us to care for this patient. Please call with any questions or concerns. Critical care time spent: 44 minutes This medical document was created using an electronic medical record system with voice recognition software and computerized dictation system. Although this document has been carefully reviewed, there might still be some phonetic and typographical errors. Occasional wrong-word or ``sound-alike substitutions may have occurred due to the inherent limitations of voice recognition software. These areas are purely typographical due to imperfections of the software programs and do not reflect any compromise in the patient's medical care. Please read the chart carefully and recognize, using context, where these substitutions have occurred. Plan discussed with: Patient NYHA Physical activity limitations: NA Date of Service: Jan 30, 2025 Billing Provider: JERRICA MONTIEL Cardiology Common Codes: 42651-[id number] INP/OBS CARE (High) Cardiology Consultation Codes: 27724-[id number] CONSULT <45MIN JERRICA MONTIEL Jan 30, 2025 16:09
[2025-01-30] MEDS: HEPARIN DRIP/D5W 100UNITS/ML 250 ML IV SCH ×2 (16:36→23:19)
[2025-01-30 17:14] LABS: Hematocrit 31.3 % (41.0-53.0); Hemoglobin 9.0 g/dL (13.5-17.5); Mean Corpuscular Hemoglobin 25.3 pg (28.0-32.0); Mean Corpuscular Volume 87.4 fL (80.0-100.0); Nucleated Red Blood Cells % 0.3 %
[2025-01-30 17:26] LABS: INR 1.88 (0.9-1.15); Partial Thromboplastin Time 39.9 SEC (24.5-34.5); Prothrombin Time 18.7 sec (9.3-11.8)
--- NOTE | 2025-01-30 17:38 | DVH ---
INDICATION: bilateral hydronephrosis TECHNIQUE: Multiple real-time sonographic images of the kidneys and bladder were obtained. COMPARISON: None FINDINGS: The right kidney measures 6.3 cm in length, which is normal in size. There is increased ech ogenicity of the right kidney. There are 3 mm and 3 mm shadowing stones identified at the inferior po le. There is no hydronephrosis. The left kidney measures 9.3 cm in length, which is normal in size. There is increased echogenicity o f the left kidney. There is a staghorn calculus at the inferior pole of the left kidney measuring at least 2.0 cm. There is an additional 1.8 cm calculus at the superior pole of the left kidney. There are several additional calculi in the left kidney that may be part of the staghorn. There is moderate left hydronephrosis, mostly at the superior pole. There is a 1.5 cm anechoic simple cyst at the infe rior pole of the left kidney. The urinary bladder is collapsed about a Baxter catheter balloon. The bladder wall appears thickened although it is not distended. There is a small amount of free fluid in the abdomen. IMPRESSION: Left staghorn calculus. Moderate left hydronephrosis, mostly at the superior pole. Small nonobstructive calculi at the inferior pole of the right kidney. No right hydronephrosis.
--- NOTE | 2025-01-30 18:09 | CONS ---
Pharmacy Clinical Information: HEPARIN PER RX PROTOCOL SPOKE TO NASEEM CRISTOBAL REGARDING new heparin drip order CURRENT aPTT: 39.9 on 01/30/2025 at 16:32 BOLUS: NO Initial heparin drip rate: 600 units/hr Date and time initial heparin drip started: 01/30/2025 at 16:36 Next aPTT: 01/24/2025 at 22:30 NASEEM CRISTOBAL READ BACK initial heparin drip rate: 600 UNITS/HR COREEN Hartley Jan 30, 2025 18:09
[2025-01-30] MEDS: FUROSEMIDE 40 MG/4 ML VIAL IV SCH (18:45)
--- NOTE | 2025-01-30 18:51 | DVHCONRES ---
Date Seen: Jan 30, 2025 Resident Creating Document: KADY LEON RESIDENT Referring Physician resident KAHLIL Reason for Consultation PUSHPA History of Present Illness This is a 69-year-old male with past medical history of coronary artery disease with stent placement eight months ago, PUSHPA (makes urine and has had one dialysis done until now -yesterday at [facility]), came in with chief complaints of abdominal pain, vomiting and diarrhea. Patient was transferred from [facility] due to hyperkalemia and hydronephrosis with a Geo catheter and Baxter's catheter in place. His last session of dialysis in [place] on 01/28/2025. patient was seen and examined on the bedside. He is alert oriented x3. complaint of generalized weakness and no other active complaint. Past Medical History Coronary artery disease with a stent placement eight months ago, end-stage renal disease on hemodialysis Past Surgical History Unknown Allergies: Coded Allergies: NO KNOWN ALLERGIES (Unverified , 01/29/25) Home Meds No Active Prescriptions or Reported Meds Current Medications Current Medications Medications (Trade) Dose Ordered Sig/Natan Route PRN Reason Start Time Stop Time Status Last Admin Diagnostic Test (Pha) (Accu-Chek Comfort Curve T) 1 strip Q6HR 01/30/25 00:00 01/30/25 18:46 Insulin Human Regular (InsuLIN R) Q6HR SC 01/30/25 00:00 Pantoprazole Sodium (Protonix) 40 mg DAILY IV 01/30/25 10:00 01/30/25 10:13 Heparin Sodium (Porcine) 5,000 units Q12HR SC 01/29/25 22:00 01/30/25 16:08 DC 01/30/25 10:15 Piperacillin Sod/ Tazobactam Sod 50 ml @ 12.5 mls/hr Q12HR IV 01/30/25 10:00 01/30/25 10:13 Heparin Sodium/ Dextrose 250 ml @ 6 mls/hr Q24H IV 01/30/25 16:15 01/30/25 16:36 Aspirin 81 mg DAILY PO 01/31/25 10:00 Furosemide (Lasix Injection) 40 mg BIDD IV 01/30/25 18:00 Calcium Acetate (Phoslo Capsule) 667 mg TIDWMEALS PO 01/31/25 08:00 Review of Systems Constitutional: No: Fever, Chills, Sweats, Weakness, Malaise, Other Eyes: No: Pain, Vision change, Conjunctivae inflammation, Eyelid inflammation, Other, Redness ENT: No: Ear pain, Ear discharge, Nose pain, Nose discharge, Nose congestion, Mouth pain, Mouth swelling, Throat pain, Throat swelling, Other Respiratory: Shortness of breath, improving No: Cough, Dry,Wheezing, Hemoptysis, Pleuritic Pain, Sputum, Wheezing, Other Cardiovascular: No: Chest Pain, Palpitations, Orthopnea, Paroxysmal Noc. Dyspnea, Edema, Lt Headedness, Other Gastrointestinal: No: Nausea, Vomiting, Abdominal Pain, Diarrhea, Constipation, Melena, Hematochezia, Other Musculoskeletal: No: other, neck pain, shoulder pain, arm pain, back pain, hand pain, leg pain, foot pain Neurological:; No: Weakness, Numbness, Incoordination, Change in speech, Confusion, Seizures Vital Signs Vital Signs Date Time Temp Pulse Resp B/P (MAP) Pulse Ox O2 Delivery O2 Flow Rate FiO2 01/30/25 18:45 110/81 01/30/25 15:00 95 12 99 01/30/25 08:00 98.4 98.4 01/30/25 08:00 Nasal Cannula* 2 28 Physical Exam Physical examination: General Appearance: Alert, Oriented X3, Cooperative, No acute distress HEENT: Atraumatic, PERRLA, EOMI, Mucous membrane moist/pink Respiratory: Bilateral crackles Cardiovascular: Regular rate, Normal S1, Normal S2, No murmurs, no chest wall tenderness Abdominal: Normal bowel sounds, Soft, No tenderness, No hepatospenomegaly, No masses Extremities: No clubbing, No cyanosis, No edema, Normal pulses, No tenderness/swelling Skin: No rashes, except past surgical scars Neuro: Normal speech, Strength at 5/5 X4 ext, Normal tone, Sensation intact, Cranial nerves 3-12 NL, Reflexes 2+ Psych/Mental Status: Mental status NL, Mood NL Labs/Diagnostic Data Labs Test 01/30/25 18:32 01/30/25 16:32 01/30/25 15:16 01/30/25 06:04 Range/Units POC Glucose 126 H 70-106 mg/dl White Blood Count 7.6 4.4-10.8 10^3/uL Red Blood Count 3.58 L 4.5-5.90 10^6/uL Hemoglobin 9.0 L 13.5-17.5 g/dL Hematocrit 31.3 #L 41.0-53.0 % Mean Corpuscular Volume 87.4 # 80.0-100.0 fL Mean Corpuscular Hemoglobin 25.3 L 28.0-32.0 pg Mean Corpuscular Hemoglobin Concent 28.9 L 32.0-36.0 g/dL Red Cell Distribution Width 21.8 H 11.8-14.3 % Platelet Count 190 140-450 10^3/uL Mean Platelet Volume 7.6 6.9-10.8 fL Neutrophils (%) (Auto) 74.4 37.0-80.0 % Lymphocytes (%) (Auto) 11.0 10.0-50.0 % Monocytes (%) (Auto) 12.9 H 0.0-12.0 % Eosinophils (%) (Auto) 0.8 0.0-7.0 % Basophils (%) (Auto) 0.9 0.0-2.0 % Neutrophils # (Auto) 5.6 1.6-8.6 10 ^3/uL Lymphocytes # (Auto) 0.8 0.4-5.4 10 ^3/uL Monocytes # (Auto) 1.0 0-1.3 10 ^3/uL Eosinophils # (Auto) 0.1 0-0.8 10 ^3/uL Basophils # (Auto) 0.1 0-0.2 10 ^3/uL Nucleated Red Blood Cells 0.3 % Prothrombin Time 18.7 H 9.3-11.8 sec Prothrombin Time INR 1.88 H 0.9-1.15 Activated Partial Thromboplast Time 39.9 H 24.5-34.5 SEC Phosphorus Level 6.7 H 2.4-5.1 mg/dL Troponin I High Sensitivity 841 *H </=54 ng/L Sodium Level 143 136-145 mmol/L Potassium Level 5.4 H 3.5-5.1 mmol/L Chloride Level 103 98-107 mmol/L Carbon Dioxide Level 26 20-31 mmol/L Anion Gap 14 5-15 Blood Urea Nitrogen 72 H 9-23 mg/dL Creatinine 4.78 H 0.700-1.30 mg/dL Glomerular Filtration Rate Calc 12 >90 mL/min BUN/Creatinine Ratio 15.1 10.0-20.0 Serum Glucose 64 L 74-106 mg/dL Calcium Level 8.5 L 8.7-10.4 mg/dL Total Bilirubin 0.6 0.2-1.0 mg/dL Aspartate Amino Transferase (AST) 1591 H 13-40 U/L Alanine Aminotransferase (ALT) 1726 H 7-40 U/L Alkaline Phosphatase 156 H 46-116 U/L Total Protein 6.8 5.7-8.2 g/dL Albumin 3.4 3.2-4.8 g/dL Parathyroid Hormone (Intact) 702.7 H 18.4-80.1 pg/mL Test 01/30/25 05:04 01/30/25 00:30 01/29/25 20:26 01/29/25 18:48 Range/Units Direct Bilirubin 0.3 <0.3 mg/dL Urine Color Brown H Yellow Urine Clarity Ex.turbid Clear Urine pH 6.5 5.0-9.0 Urine Specific [place] 1.013 1.001-1.035 Urine Protein 2+ H Negative Urine Ketones Negative Negative Urine Blood 3+ H Negative /uL Urine Nitrite Negative Negative Urine Bilirubin Negative Negative Urine Urobilinogen Normal Negative mg/dL Urine Leukocyte Esterase 2+ Negative /uL Urine RBC 202 0 - 3 /hpf Urine WBC Clumps Present None Seen /hpf Urine Microscopic WBC 2795 H 0-3 /HPF Urine Squamous Epithelial Cells None seen <5 /hpf Urine Bacteria None seen None Seen /hpf Urine Glucose Normal Normal mg/dL Urine Opiates Screen Neg NEGATIVE Urine Fentanyl Screen Neg NEGATIVE Urine Barbiturates Screen Neg NEGATIVE Urine Phencyclidine Screen Neg NEGATIVE Urine Amphetamines Screen Neg NEGATIVE Urine Benzodiazepines Screen Neg NEGATIVE Urine Cocaine Screen Neg NEGATIVE Urine Cannabinoids Screen Neg NEGATIVE Influenza Type A Antigen Negative Negative Influenza Type B Antigen Negative Negative SARS-CoV-2 Antigen (Rapid) Negative NEGATIVE Acetaminophen Level < 2.0 L 10.0-20.0 UG/ML B-Type Natriuretic Peptide 2207.62 0-100 pg/mL Plasma/Serum Blood Alcohol 4.4 <10 mg/dL Assessment Assessment and plan # PUSHPA sec to obstructive etiology needing HD # Hyperkalemia # Hyperphosphatemia # Secondary hyperparathyroidism # Moderate left hydronephrosis # Acute complicated cystitis # Possible NSTEMI type 2 # Acute on chronic systolic heart failure with reduced ejection fraction # Transaminitis with coagulopathy Plan: - Hemodialysis tomorrow - kidney ultrasound demonstrated left staghorn calculus, moderate left hydronephrosis, small nonobstructive calculi at the inferior pole of the right kidney. - consulted Urology for further evaluation and management of kidney stone - IV Lasix 40 mg b.i.d. - Recommended urine bacterial culture - IV antibiotic and other management as per primary - Monitor BMP Thank you so much for the opportunity to consult on your patient. Nephro team will follow the patient. In case of any questions or concerns please feel free to reach out. Plan discussed with . The patient and caregiver team agreed to the plan. Addendum Patient seen and examined, plan discussed with resident. Agree with above, we will follow closely Patient has Acute kidney injury secondary to obstructive etiology HD 01/31 Plan discussed with: Other (RN) KADY LEON RESIDENT Jan 30, 2025 18:51 VERITO POSEY MD Jan 30, 2025 21:06
[2025-01-30 20:00] VITALS: PULSE 95; PULSE 96; RESP 18; O2SAT 100
[2025-01-30 21:00] VITALS: BP 111/73; PULSE 96; RESP 18; TEMP 97.6; O2SAT 100
[2025-01-30 22:26] LABS: INR 1.71 (0.9-1.15); Partial Thromboplastin Time 46.5 SEC (24.5-34.5); Prothrombin Time 17.2 sec (9.3-11.8)
[2025-01-31 01:00] VITALS: BP 125/89; PULSE 89; RESP 18; TEMP 96.5; O2SAT 95
--- NOTE | 2025-01-31 01:36 | DVHINCON2 ---
Date Seen: Jan 30, 2025 Referring Physician MD Alyx resident Reason for Consultation Chest pain, increasing troponin levels, history of CAD History of Present Illness This is a 69-year-old male with a past medical history of coronary artery disease x 1 ADRIAN (not compliant with DAPT), myocardial infarction, hypertension, dyslipidemia, and kidney stones who presents to emergency room with chief complaint of nausea, vomiting, chest pain, and abdominal pain for two days prior to emergency room arrival. The patient was initially seen at [facility] and transferred to this facility for higher level of care. Initial twelve lead electrocardiogram reveals sinus tachycardia with right bundle branch block. Initial troponin level of 267ng/L with up trend and peak level at 891ng/L. The patient is a very poor historian, but mentions that he underwent a coronary angiogram with left heart catheterization approximately three months ago in [place] where one stent was placed. He admits he has not been compliant with his dual antiplatelet therapy since discharge from the hospital in [place]. He also admits to recent methamphetamine use one week ago. Chest x-ray showed congestive failure or fluid overload. Cardiology has been consulted at this time for elevated troponin level. Past Medical History Past medical history reviewed. No other significant than mentioned above. Past Surgical History Denies any previous surgeries Allergies: Coded Allergies: NO KNOWN ALLERGIES (Unverified , 01/29/25) Home Meds No Active Prescriptions or Reported Meds Current Medications Current Medications Medications (Trade) Dose Ordered Sig/Natan Route PRN Reason Start Time Stop Time Status Last Admin Diagnostic Test (Pha) (Accu-Chek Comfort Curve T) 1 strip Q6HR 01/30/25 00:00 01/30/25 12:00 Insulin Human Regular (InsuLIN R) Q6HR SC 01/30/25 00:00 Dextrose 50 ml UD PRN IV Blood Sugar LESS THAN 60 01/29/25 18:15 Pantoprazole Sodium (Protonix) 40 mg DAILY IV 01/30/25 10:00 01/30/25 10:13 Ondansetron HCl (Zofran) 4 mg Q6HPRN PRN IV NAUSEA / VOMITING 01/29/25 18:15 01/29/25 20:50 Acetaminophen (Tylenol Tablet) 650 mg Q4HP PRN PO MODERATE PAIN (4-6 PAIN SCALE) 01/29/25 18:15 Heparin Sodium (Porcine) 5,000 units Q12HR SC 01/29/25 22:00 01/30/25 16:08 DC 01/30/25 10:15 Piperacillin Sod/ Tazobactam Sod 50 ml @ 12.5 mls/hr Q12HR IV 01/30/25 10:00 01/30/25 10:13 Heparin Sodium/ Dextrose 250 ml @ 6 mls/hr Q24H IV 01/30/25 16:15 01/30/25 16:36 Aspirin 81 mg DAILY PO 01/31/25 10:00 Furosemide (Lasix Injection) 40 mg BIDD IV 01/30/25 18:00 Review of Systems Constitutional: No symptom reported Ears, Nose, & Throat: No symptom reported Eyes: No symptom reported Neurological: No symptoms reported Pulmonary/Respiratory: No symptoms reported Cardiovascular: Chest pain Gastrointestinal: Abdominal pain, nausea and vomiting Genitourinary: No symptom reported Musculoskeletal: No symptom reported Skin: No symptom reported Psychiatric: No symptom reported Endocrine: No symptom reported Hematologic/Lymphatic: No symptom reported Vital Signs Vital Signs Date Time Temp Pulse Resp B/P (MAP) Pulse Ox O2 Delivery O2 Flow Rate FiO2 01/30/25 15:00 95 12 98/62 (74) 99 01/30/25 08:00 98.4 98.4 01/30/25 08:00 Nasal Cannula* 2 28 Physical Exam GENERAL: Alert and oriented x 3. No acute distress. EYES: PERRL, EOMI. Anicteric. HENT: Moist mucous membranes. LUNGS: Clear to auscultation bilaterally. CARDIOVASCULAR: Regular rate and rhythm. ABDOMEN: Soft, nontender and nondistended. EXTREMITIES: No edema. NEUROLOGIC: No focal neurological deficits. SKIN: Warm, dry. Labs/Diagnostic Data Labs Test 01/30/25 16:32 01/30/25 15:16 01/30/25 12:10 01/30/25 06:04 Range/Units White Blood Count 7.6 4.4-10.8 10^3/uL Red Blood Count 3.58 L 4.5-5.90 10^6/uL Hemoglobin 9.0 L 13.5-17.5 g/dL Hematocrit 31.3 #L 41.0-53.0 % Mean Corpuscular Volume 87.4 # 80.0-100.0 fL Mean Corpuscular Hemoglobin 25.3 L 28.0-32.0 pg Mean Corpuscular Hemoglobin Concent 28.9 L 32.0-36.0 g/dL Red Cell Distribution Width 21.8 H 11.8-14.3 % Platelet Count 190 140-450 10^3/uL Mean Platelet Volume 7.6 6.9-10.8 fL Neutrophils (%) (Auto) 74.4 37.0-80.0 % Lymphocytes (%) (Auto) 11.0 10.0-50.0 % Monocytes (%) (Auto) 12.9 H 0.0-12.0 % Eosinophils (%) (Auto) 0.8 0.0-7.0 % Basophils (%) (Auto) 0.9 0.0-2.0 % Neutrophils # (Auto) 5.6 1.6-8.6 10 ^3/uL Lymphocytes # (Auto) 0.8 0.4-5.4 10 ^3/uL Monocytes # (Auto) 1.0 0-1.3 10 ^3/uL Eosinophils # (Auto) 0.1 0-0.8 10 ^3/uL Basophils # (Auto) 0.1 0-0.2 10 ^3/uL Nucleated Red Blood Cells 0.3 % Prothrombin Time 18.7 H 9.3-11.8 sec Prothrombin Time INR 1.88 H 0.9-1.15 Activated Partial Thromboplast Time 39.9 H 24.5-34.5 SEC Phosphorus Level 6.7 H 2.4-5.1 mg/dL Troponin I High Sensitivity 841 *H </=54 ng/L POC Glucose 91 70-106 mg/dl Sodium Level 143 136-145 mmol/L Potassium Level 5.4 H 3.5-5.1 mmol/L Chloride Level 103 98-107 mmol/L Carbon Dioxide Level 26 20-31 mmol/L Anion Gap 14 5-15 Blood Urea Nitrogen 72 H 9-23 mg/dL Creatinine 4.78 H 0.700-1.30 mg/dL Glomerular Filtration Rate Calc 12 >90 mL/min BUN/Creatinine Ratio 15.1 10.0-20.0 Serum Glucose 64 L 74-106 mg/dL Calcium Level 8.5 L 8.7-10.4 mg/dL Total Bilirubin 0.6 0.2-1.0 mg/dL Aspartate Amino Transferase (AST) 1591 H 13-40 U/L Alanine Aminotransferase (ALT) 1726 H 7-40 U/L Alkaline Phosphatase 156 H 46-116 U/L Total Protein 6.8 5.7-8.2 g/dL Albumin 3.4 3.2-4.8 g/dL Parathyroid Hormone (Intact) 702.7 H 18.4-80.1 pg/mL Test 01/30/25 05:04 01/30/25 00:30 01/29/25 20:26 01/29/25 18:48 Range/Units Direct Bilirubin 0.3 <0.3 mg/dL Urine Color Brown H Yellow Urine Clarity Ex.turbid Clear Urine pH 6.5 5.0-9.0 Urine Specific [place] 1.013 1.001-1.035 Urine Protein 2+ H Negative Urine Ketones Negative Negative Urine Blood 3+ H Negative /uL Urine Nitrite Negative Negative Urine Bilirubin Negative Negative Urine Urobilinogen Normal Negative mg/dL Urine Leukocyte Esterase 2+ Negative /uL Urine RBC 202 0 - 3 /hpf Urine WBC Clumps Present None Seen /hpf Urine Microscopic WBC 2795 H 0-3 /HPF Urine Squamous Epithelial Cells None seen <5 /hpf Urine Bacteria None seen None Seen /hpf Urine Glucose Normal Normal mg/dL Urine Opiates Screen Neg NEGATIVE Urine Fentanyl Screen Neg NEGATIVE Urine Barbiturates Screen Neg NEGATIVE Urine Phencyclidine Screen Neg NEGATIVE Urine Amphetamines Screen Neg NEGATIVE Urine Benzodiazepines Screen Neg NEGATIVE Urine Cocaine Screen Neg NEGATIVE Urine Cannabinoids Screen Neg NEGATIVE Influenza Type A Antigen Negative Negative Influenza Type B Antigen Negative Negative SARS-CoV-2 Antigen (Rapid) Negative NEGATIVE Acetaminophen Level < 2.0 L 10.0-20.0 UG/ML B-Type Natriuretic Peptide 2207.62 0-100 pg/mL Plasma/Serum Blood Alcohol 4.4 <10 mg/dL Assessment NSTEMI rule out progressive coronary artery disease. Rule out InStent thrombosis/restenosis. Rule out structural heart disease. Coronary artery disease status post PTCA X 1 ADRIAN (noncompliant with dual antiplatelet therapy). Hypertension. Dyslipidemia. Hyperkalemia. Transaminitis. End-stage renal disease now on hemodialysis. Methamphetamine use. Tobacco use. Medical noncompliance Plan/Recommendation I agree with your ongoing assessment and care of plan. Patient has been seen by Gisselle Arroyo NP on my behalf, her and I discussed the plan with the patient. Transthoracic echocardiogram to evaluate cardiac function. Chest pain protocol. HEART score: 8 points (high score). HOSSEIN score: 4 points. Heparin drip per ACS protocol. Antiplatelet therapy. Initiate lipid-lowering agent with improved LFTs. Close cardiac surveillance. Further recommendations per clinical course and progression. Additional plan as per the hospital course. Plan discussed with: Patient NYHA Physical activity limitations: NA Date of Service: Jan 30, 2025 Billing Provider: MARIO CARNES MD Cardiology Common Codes: [id number] INP/OBS CARE (High) Cardiology Consultation Codes: 30636-[id number] CONSULT <45MIN MARIO CARNES MD Jan 30, 2025 18:16
[2025-01-31] MEDS: ACETAMINOPHEN 325 MG TAB PO PRN (06:35)
[2025-01-31 07:14] LABS: Hematocrit 25.4 % (41.0-53.0); Hemoglobin 8.2 g/dL (13.5-17.5)
[2025-01-31 07:16] LABS: Mean Corpuscular Hemoglobin 26.1 pg (28.0-32.0); Mean Corpuscular Volume 80.9 fL (80.0-100.0); Nucleated Red Blood Cells % 0.4 %
[2025-01-31 07:32] LABS: INR 1.61 (0.9-1.15); Partial Thromboplastin Time 59.6 SEC (24.5-34.5); Prothrombin Time 16.3 sec (9.3-11.8)
[2025-01-31 07:40] LABS: Albumin 3.2 g/dL (3.2-4.8); Anion Gap 12 (5-15); BUN/Creatinine Ratio 11.2 (10.0-20.0); Bilirubin, Total 0.3 mg/dL (0.2-1.0); Carbon Dioxide 24 mmol/L (20-31); Chloride 102 mmol/L (98-107); Glucose 93 mg/dL (74-106); Sodium 138 mmol/L (136-145); Total Protein 6.7 g/dL (5.7-8.2)
[2025-01-31 07:41] LABS: Alkaline Phosphatase 136 U/L (46-116); Blood Urea Nitrogen 64 mg/dL (9-23); Calcium 8.2 mg/dL (8.7-10.4); Potassium 5.3 mmol/L (3.5-5.1)
[2025-01-31 07:55] LABS: Alanine Aminotransferase 1150 U/L (7-40)
[2025-01-31 08:00] VITALS: PULSE 89; O2SAT 100
--- NOTE | 2025-01-31 08:03 | CONS ---
Pharmacy Clinical Information: Per RX protocol for Heparin aPTT reading on 01/31/25 at 06:41 was 59.6. No change for now. Continue 800 units/hr. Next aPTT reading is at 12:30 on 01/31/25. Read back with NASEEM Green. MELITA Nogueira RPH PHARMACIST Jan 31, 2025 08:03
[2025-01-31] MEDS: CALCIUM ACETATE 667 MG CAP PO SCH (08:43)
[2025-01-31 10:09] LABS: Hepatitis B Surface Antigen Negative (Negative)
--- NOTE | 2025-01-31 10:19 | DVHSR ---
APPROVED REPORT EXAM: Two-dimensional and M-mode echocardiogram with Doppler and color Doppler. Blood Pressure: 199/67 mmHg INDICATION SOB DIMENSIONS LVDd5.3 (3.8-5.7cm)LA (2D)4.7 (1.9-4.0cm)Aortic Root4.0 (2.0-3.7cm) LVDs4.7 (2.5-4.0cm)LA (MM) (1.9-4.0cm)Aortic Cusp Exc1.9 (1.5-2.0cm) EF (%) 25.0 (55-70%)Rt. Atrium5.0 (1.9-4.0cm)Asc. Aorta cm Mitral Valve MitralMitral Stenosis E wave0.99m/sMV Mean GR.mmHg A wave0.63m/sMV Peak GR.71mmHg E/A ratio1.62D MVAcm2 DECEL [id number] 1/2 Timems Aortic Valve Aortic ValveAortic Stenosis V10.57m/Michael Mean GR.4mmHg V21.28m/Michael Peak GR.7mmHg LVOT Diameter2.1 (1.8-2.4cm)Doppler AVA1.54cm2 Pulmonic Valve V20.77m/s Tricuspid Valve TR Velocity2.64m/s [id number] Conclusion DILATED ALL CARDIAC CHAMBERS GLOBAL LV AND RV HYPOKINESIS SEVERE MR MAJOR LV SYSTOLIC DYSFUNCTION LV EF IS ONLY 25% MODERATE DEGREE LVH AND MODERATE DEGREE LV DIASTOLIC DYSFUNCTION NORMAL VALVES NO EFFUSION
[2025-01-31 10:50] LABS: Hepatitis C Antibody Positive (Negative)
--- NOTE | 2025-01-31 12:14 | DVHINCON2 ---
Date of service: Jan 31, 2025 Referring Physician Hospitalist Reason for Consultation Bilateral renal stones ESRD Mild bilateral hydronephrosis History of Present Illness 69 year old male with PMHx ESRD, CHF, CKF, hyperkalemia, acute acidosis, kidney stones presents to the ED via EMS with a chief compliant of nausea/vomiting onset this morning around 03:50. Patient was transferred from [facility] due to hyperkalemia and kidney stones. Prior to transfer, patient was given Dilaudid for pain. CT brain was negative, CT abdomen/pelvis showed LT and RT hydronephrosis, acidotic ABG 7.26. Patient states he experienced about 4 emesis episodes since this morning. Denies chest pain, shortness of breath, fever, chills, headache. No other symptoms or modifying factors present at this time. Chief Complaint: Nausea/Vomiting Reviewed Notes: Nurses Notes, Medications, Allergies Allergies: Coded Allergies: NO KNOWN ALLERGIES (Unverified , 01/29/25) Information Source: Patient, Emergency Med Personnel Mode of Arrival: EMS Severity: Moderate Timing: Hours Duration: Since onset Prehospital treatment: Pain Meds Past Medical History CHF, CKF, Kidney Stones Past Medical History (Other): hyperkalemia, acute acidosis, ESRD on HD Allergies: Coded Allergies: NO KNOWN ALLERGIES (Unverified , 01/29/25) Home Meds No Active Prescriptions or Reported Meds Current Medications Current Medications Medications (Trade) Dose Ordered Sig/Natan Route PRN Reason Start Time Stop Time Status Last Admin Heparin Sodium/ Dextrose 250 ml @ 6 mls/hr Q24H IV 01/30/25 16:15 01/30/25 22:52 DC 01/30/25 16:36 Aspirin 81 mg DAILY PO 01/31/25 10:00 01/31/25 11:30 Furosemide (Lasix Injection) 40 mg BIDD IV 01/30/25 18:00 01/31/25 06:31 Calcium Acetate (Phoslo Capsule) 667 mg TIDWMEALS PO 01/31/25 08:00 01/31/25 08:43 Heparin Sodium/ Dextrose 250 ml @ 8 mls/hr Q24H IV 01/30/25 23:00 01/30/25 23:19 Review of Systems Constitutional: denies: chills, diaphoresis, fatigue, fever, malaise, sweats, weakness, others EENTM: denies: blurred vision, double vision, ear bleeding, ear discharge, ear drainage, ear pain, ear ringing, eye pain, eye redness, hearing loss, mouth pain, mouth swelling, nasal discharge, nose bleeding, nose congestion, nose pain, photophobia, tearing, throat pain, throat swelling, voice changes, others Respiratory: denies: cough, hemoptysis, orthopnea, SOB at rest, shortness of breath, SOB with excertion, stridor, wheezing, others Cardiovascular: denies: chest pain, dizzy spells, diaphoresis, Dyspnea on exertion, edema, irregular heart beat, left arm pain, lightheadedness, palpitations, PND, syncope, others Gastrointestinal: reports: abdominal pain, nausea, vomiting; denies: abdomen distended, blood streaked bowels, constipated, diarrhea, dysphagia, difficulty swallowing, hematemesis, melena, poor appetite, poor fluid intake, rectal bleeding, rectal pain, others Genitourinary: denies: burning, dysuria, flank pain, frequency, hematuria, incontinence, penile discharge, penile sore, pain, testicle pain, testicle swelling, urgency, others Neurological: denies: dizziness, fainting, headache, left sided numbness, left sided weakness, numbness, paresthesia, pre-existing deficit, right sided numbness, right sided weakness, seizure, speech problems, tingling, tremors, weakness, others Musculoskeletal: denies: back pain, gout, joint pain, joint swelling, muscle pain, muscle stiffness, neck pain, others Integumetry: denies: bruises, change in color, change in hair/nails, dryness, laceration, lesions, lumps, rash, wounds, others Allergic/Immunocompromised: denies: Difficulty Healing, Frequent Infections, Hives, Itching, others Hematologic/Lymphatic: denies: anemia, blood clots, easy bleeding, easy bruising, swollen glands, others Endocrine: denies: excessive hunger, excessive sweating, excessive thirst, excessive urination, flushing, intolerance to cold, intolerance to heat, unexplained weight gain, unexplained weight loss, others Psychiatric: denies: anxiety, bipolar disorder, depression, hopeless, panic disorder, schizophrenia, sleepless, suicidal, others All Other Systems: Reviewed and Negative Vital Signs Vital Signs Date Time Temp Pulse Resp B/P (MAP) Pulse Ox O2 Delivery O2 Flow Rate FiO2 01/31/25 06:31 114/78 01/31/25 01:00 96.5 89 18 95 96.5 01/30/25 20:00 Nasal Cannula* 2 28 Physical Exam General Appearance: Moderate Distress HEENT: Normal ENT Inspection, Pharynx Normal, TMs Normal Neck: Full Range of Motion, Non-Tender, Normal, Normal Inspection Respiratory: Chest Non-Tender, Lungs Clear, No Accessory Muscle Use, No Respiratory Distress, Normal Breath Sounds Cardiovascular: No Edema, No JVD, No Murmur, No Gallop, Normal Peripheral Pulses, Regular Rate/Rhythm Breast Exam: Deferred Gastrointestinal: No Organomegaly, Non Tender, No Pulsatile Mass, Normal Bowel Sounds, Soft Genitalia: Baxter in place Pelvic: Deferred Rectal: Deferred Extremities: No calf tenderness, Normal capillary refill, No pedal edema Musculoskeletal : Location: Bilateral Extremity Location: Back Apperance: Tenderness: Moderate Neurologic: Alert, security compliance engineer II-XII nml as Tested, Motor Weakness, Normal Affect, Normal Mood, No Sensory Deficits Cerebellar Function: Normal Reflexes: Normal Skin: Dry, Normal Color, Warm Lymphatic: No Adenopathy Labs/Diagnostic Data Labs Test 01/31/25 11:17 01/31/25 06:41 01/30/25 15:16 01/30/25 06:04 Range/Units POC Glucose 115 H 70-106 mg/dl White Blood Count 7.2 4.4-10.8 10^3/uL Red Blood Count 3.14 L 4.5-5.90 10^6/uL Hemoglobin 8.2 L 13.5-17.5 g/dL Hematocrit 25.4 #L 41.0-53.0 % Mean Corpuscular Volume 80.9 # 80.0-100.0 fL Mean Corpuscular Hemoglobin 26.1 L 28.0-32.0 pg Mean Corpuscular Hemoglobin Concent 32.3 32.0-36.0 g/dL Red Cell Distribution Width 20.7 H 11.8-14.3 % Platelet Count 140 140-450 10^3/uL Mean Platelet Volume 7.4 6.9-10.8 fL Neutrophils (%) (Auto) 70.9 37.0-80.0 % Lymphocytes (%) (Auto) 10.7 10.0-50.0 % Monocytes (%) (Auto) 13.8 H 0.0-12.0 % Eosinophils (%) (Auto) 1.4 0.0-7.0 % Basophils (%) (Auto) 3.2 H 0.0-2.0 % Neutrophils # (Auto) 5.1 1.6-8.6 10 ^3/uL Lymphocytes # (Auto) 0.8 0.4-5.4 10 ^3/uL Monocytes # (Auto) 1.0 0-1.3 10 ^3/uL Eosinophils # (Auto) 0.1 0-0.8 10 ^3/uL Basophils # (Auto) 0.2 0-0.2 10 ^3/uL Nucleated Red Blood Cells 0.4 % Prothrombin Time 16.3 H 9.3-11.8 sec Prothrombin Time INR 1.61 H 0.9-1.15 Activated Partial Thromboplast Time 59.6 H 24.5-34.5 SEC Sodium Level 138 # 136-145 mmol/L Potassium Level 5.3 H 3.5-5.1 mmol/L Chloride Level 102 98-107 mmol/L Carbon Dioxide Level 24 20-31 mmol/L Anion Gap 12 5-15 Blood Urea Nitrogen 64 H 9-23 mg/dL Creatinine 5.69 H 0.700-1.30 mg/dL Glomerular Filtration Rate Calc 10 >90 mL/min BUN/Creatinine Ratio 11.2 10.0-20.0 Serum Glucose 93 74-106 mg/dL Calcium Level 8.2 L 8.7-10.4 mg/dL Total Bilirubin 0.3 0.2-1.0 mg/dL Aspartate Amino Transferase (AST) 566 H 13-40 U/L Alanine Aminotransferase (ALT) 1150 H 7-40 U/L Alkaline Phosphatase 136 H 46-116 U/L Total Protein 6.7 5.7-8.2 g/dL Albumin 3.2 3.2-4.8 g/dL Phosphorus Level 6.7 H 2.4-5.1 mg/dL Troponin I High Sensitivity 841 *H </=54 ng/L Parathyroid Hormone (Intact) 702.7 H 18.4-80.1 pg/mL Test 01/30/25 05:04 01/30/25 00:30 01/29/25 20:01/29/25 18:48 Range/Units Direct Bilirubin 0.3 <0.3 mg/dL Urine Color Brown H Yellow Urine Clarity Ex.turbid Clear Urine pH 6.5 5.0-9.0 Urine Specific [place] 1.013 1.001-1.035 Urine Protein 2+ H Negative Urine Ketones Negative Negative Urine Blood 3+ H Negative /uL Urine Nitrite Negative Negative Urine Bilirubin Negative Negative Urine Urobilinogen Normal Negative mg/dL Urine Leukocyte Esterase 2+ Negative /uL Urine RBC 202 0 - 3 /hpf Urine WBC Clumps Present None Seen /hpf Urine Microscopic WBC 2795 H 0-3 /HPF Urine Squamous Epithelial Cells None seen <5 /hpf Urine Bacteria None seen None Seen /hpf Urine Glucose Normal Normal mg/dL Urine Opiates Screen Neg NEGATIVE Urine Fentanyl Screen Neg NEGATIVE Urine Barbiturates Screen Neg NEGATIVE Urine Phencyclidine Screen Neg NEGATIVE Urine Amphetamines Screen Neg NEGATIVE Urine Benzodiazepines Screen Neg NEGATIVE Urine Cocaine Screen Neg NEGATIVE Urine Cannabinoids Screen Neg NEGATIVE Influenza Type A Antigen Negative Negative Influenza Type B Antigen Negative Negative SARS-CoV-2 Antigen (Rapid) Negative NEGATIVE Acetaminophen Level < 2.0 L 10.0-20.0 UG/ML Hepatitis A IgM Antibody Negative Hepatitis B Surface Antigen Negative Negative Hepatitis B Core IgM Antibody Negative Negative Hepatitis C Antibody Positive *A Negative B-Type Natriuretic Peptide 2207.62 0-100 pg/mL Plasma/Serum Blood Alcohol 4.4 <10 mg/dL Assessment ESRD Bilateral hydronephrosis with bilateral renal stones Abdominal pain Plan/Recommendation Mag 3 Renal Scan with split renal function and lasix washout to rule out obstructive uropathy. Plan discussed with: Patient, Other SHAYNA SMILEY MD Jan 31, 2025 12:14
[2025-01-31 13:00] VITALS: BP 118/83; PULSE 88; RESP 18; TEMP 97.1; O2SAT 99
--- NOTE | 2025-01-31 13:10 | DVHPNRES ---
Progress Note Date Seen: Jan 31, 2025 Resident Creating Document: PENG GUILLORY RESIDENT Has the PT tested + for MRSA If YES, has PT been informed?: No Medical Necessity Reason Pt with a Central, PICC or Fol: No Subjective Review of Systems This is a 69-year-old male with past medical history of coronary artery disease with stent placement eight months ago, End-stage renal disease (makes urine and has had one dialysis done until now -yesterday at [facility]), came in with chief complaints of abdominal pain, vomiting and diarrhea. Patient was transferred from [facility] due to hyperkalemia and hydronephrosis with a Geo catheter and Allred's catheter in place. Prior to transfer, patient was given Dilaudid for pain. Patient states that he had a sharp generalized abdominal pain which was acute, rates it as 10/10, constant and associated with 4 episodes of watery vomiting, which was not mixed with blood, as well as 4 episodes of watery diarrhea, which did not have any blood or mucus in it. He has not been able to keep anything down and states that he feels weakness and could hardly walk since yesterday. On inquiry patient states that he took marijuana one week ago, which also cause nausea and for him to throw up. Patient denies having any food from outside, has had no sick contacts or taken any new medication recently. He does not have any shortness of breath, chest pain but complains still of nausea. Patient also reported that he had one dialysis session yesterday at [facility] and that his kidneys are not working. He is a poor historian and does not know the other comorbidities he has, he states he does not take any medication at home but that he took Plavix and aspirin for a few months and stopped a few months ago believing it didnt really help him in any way. Past medical history: Coronary artery disease with a stent placement eight months ago, end-stage renal disease on hemodialysis Past surgical history: Denies any surgery in the past Family history: Patient states both mother and father due to [place] Social history: Patient lives at his home with his friends. He smokes 4-5 cigarettes per day now but previously used to smoke one pack per day for the past 60 years. He states he quit alcohol 37 years ago and does not drink anymore. He takes marijuana occasionally and the last one was one week ago. Used to take methamphetamine a while back. Allergies: None Code status: Full code 01/30/2025: Patient was seen and examined by me today. Patient reports feeling much better than yesterday. We are doing a cardiology consult as there were T- wave changes multiple leads and troponins are up trending. cardiology on board. 01/31/2025: Patient was seen and examined by me today. Patient reports his urine is burning. [facility] today faxed patient's urine reports which shows ESBL positive. Ertapenem started. Cardiology on board, patient going to computer laboratory technician tomorrow. Objective vital signs Vital Sign Date Time Temp Pulse Resp B/P (MAP) Pulse Ox O2 Delivery O2 Flow Rate FiO2 01/31/25 08:00 89 01/31/25 06:31 114/78 01/31/25 01:00 96.5 18 95 96.5 01/30/25 20:00 Nasal Cannula* 2 28 Total Intake and Output 01/30/25 01/30/25 01/31/25 15:00 23:00 07:00 Intake Total 500 ml Output Total 600 ml Balance -100 ml medications Current Medications Medications Dose Ordered Sig/Natan Route Start Time Stop Time Status Last Admin Dose Admin Diagnostic Test (Pha) 1 strip Q6HR 01/30/25 00:00 01/31/25 11:18 1 STRIP Insulin Human Regular Q6HR SC 01/30/25 00:00 Dextrose 50 ml UD PRN IV 01/29/25 18:15 Pantoprazole Sodium 40 mg DAILY IV 01/30/25 10:00 01/31/25 11:30 40 MG Ondansetron HCl 4 mg Q6HPRN PRN IV 01/29/25 18:15 01/31/25 03:24 4 MG Acetaminophen 650 mg Q4HP PRN PO 01/29/25 18:15 01/31/25 06:35 650 MG Piperacillin Sod/ Tazobactam Sod 50 ml @ 12.5 mls/hr Q12HR IV 01/30/25 10:00 01/31/25 11:31 12.5 MLS/HR Aspirin 81 mg DAILY PO 01/31/25 10:00 01/31/25 11:30 81 MG Furosemide 40 mg BIDD IV 01/30/25 18:00 01/31/25 06:31 40 MG Calcium Acetate 667 mg TIDWMEALS PO 01/31/25 08:00 01/31/25 08:43 667 MG Heparin Sodium/ Dextrose 250 ml @ 8 mls/hr Q24H IV 01/30/25 23:00 01/30/25 23:19 8 MLS/HR Examination Pt is lying on bed General Appearance: Alert, Oriented X3, Cooperative, mild distress HEENT: Atraumatic, Mucous membranes moist/pink, nasal cannula in place Respiratory: Clear to auscultation, Normal air movement, No added sounds Cardiovascular: Regular rate, Normal S1, Normal S2, No murmurs Abdominal: Active bowel sounds, Soft, no distention, mild suprapubic tenderness Extremities: No edema, Normal pulses, No tenderness/swelling Skin: No Significant rash, except past surgical scars Neuro: Normal speech, sensorimotor deficits none Psych/Mental Status: Mental status NL, Mood NL Nurse was there as mounting inspector during examination laboratory and microbiology Laboratory Tests 01/31/25 06:41 Test 01/31/25 06:41 Range/Units Serum Glucose 93 74-106 mg/dL Microbiology Date/Time Source Procedure Growth Status 01/30/25 18:40 Nose MRSA Screen - Final Methicillin Resistant S.aureus Complete Labs and/or images reviewed: Labs reviewed by me, Image(s) reviewed by me Problem List/Assessment/Plan Problem List/Assessment/Plan Possible gastroenteritis transaminitis -ast 2145, alt 1848, ALP 158, uptrending today -500 bolus of 0.5 mL saline once -Zofran 4 mg IV q.6 PRN -pain control with acetaminophen 650 mg p.o. q.4 PRN -IV Protonix 40 mg -stool WBC -stool bacterial culture -Clostridium difficile -UDS negative -serum alcohol level normal -hepatitis panel-hep C antibody positive -COVID, flu test neg -MRSA positive B/L hydronephrosis on imaging ESRD on hemodialysis Anemia of chronic disease due to above UTI, ESBL positive(reports sent from [facility]) -creatinine 4.12, BUN 63 -CT abdomen pelvis without contrast shows: Relatively mild bilateral hydronephrosis with thickened urinary bladder and Allred catheter in-situ. -UA shows color brown, protein 2+, blood 3+, leukocyte esterase 2+, urine RBC 202, urine WBC clumps present, WBC 2795 -nephrology consult -allred catheter -ertapenem begun on 01/31/2025 acute systolic/diastolic CHF, HFpEF 25% NSTEMI likely Type 2 History of coronary artery disease -troponin I elevated 267> 297> 448> 585> 891> 814 -BNP- 2207 -EKG on 01/30: Sinus tachycardia; Incomplete right bundle branch block; Repol abnrm suggests ischemia, diffuse leads -telemetry -Aspirin 162 mg once -Atorvastatin 80 mg -Echo shows dilated all cardiac chambers, global LV and right ventricular hypokinesis, severe MR, major LV systolic dysfunction, left ventricle ejection fraction only 25%, moderate degree LVH and moderate degree LV diastolic dysfunction -CXR shows: Findings may represent congestive failure or fluid overload; Internal jugular catheter in the superior vena cava above the right atrium. -cardiology consult suggested transthoracic echocardiogram to evaluate cardiac function, chest pain protocol heart score 8 points, HOSSEIN score of 4 points, heparin drip per ACS protocol, antiplatelet therapy, initiate lipid-lowering agent with improved LFTs, close cardiac surveillance -Cardiology has suggested computer laboratory technician tomorrow on 01/31/2025 Hypoglycemia ( 40 on admission) -dextrose 50% syringe once -D5W 5% IV 30 mL/hour 1 bolus -Accu-Cheks GI prophylaxis: Protonix 40 mg IV daily Diet: Clear liquid diet Goals of care discussed with the patient for more than 27 minutes: Full code status Case discussed with Dr. Guajardo, patient and nurse. Plan discussed with: Patient, Other (rn) My Orders My Orders Orders - PENG GUILLORY Procedure Category Date Status Time Cardiac DIET 01/30/25 Transmitted Diet-2gna,Lofat,Lochol Dinner Mrsa Screen MYKEL 01/31/25 Logged 07:24 Date of Service: Jan 31, 2025 Billing Provider: HOLLY GUAJARDO MD, SREYA RESIDENT Jan 31, 2025 13:10
--- NOTE | 2025-01-31 13:51 | DVHPN2 ---
Progress Note Date Seen: Jan 31, 2025 Resident Creating Document: KADY LEON RESIDENT Has the PT tested + for MRSA If YES, has PT been informed?: No Medical Necessity Reason Pt with a Central, PICC or Fol: No Subjective Review of Systems patient was seen and examined on the bedside. He is alert oriented x3. complaint of generalized weakness and no other active complaint. Objective vital signs Vital Sign Date Time Temp Pulse Resp B/P (MAP) Pulse Ox O2 Delivery O2 Flow Rate FiO2 01/31/25 13:00 97.1 88 18 118/83 (95) 99 97.1 01/30/25 20:00 Nasal Cannula* 2 28 Total Intake and Output 01/30/25 01/30/25 01/31/25 15:00 23:00 07:00 Intake Total 500 ml Output Total 600 ml Balance -100 ml medications Current Medications Medications Dose Ordered Sig/Natan Route Start Time Stop Time Status Last Admin Dose Admin Diagnostic Test (Pha) 1 strip Q6HR 01/30/25 00:00 01/31/25 11:18 1 STRIP Insulin Human Regular Q6HR SC 01/30/25 00:00 Dextrose 50 ml UD PRN IV 01/29/25 18:15 Pantoprazole Sodium 40 mg DAILY IV 01/30/25 10:00 01/31/25 11:30 40 MG Ondansetron HCl 4 mg Q6HPRN PRN IV 01/29/25 18:15 01/31/25 03:24 4 MG Acetaminophen 650 mg Q4HP PRN PO 01/29/25 18:15 01/31/25 06:35 650 MG Piperacillin Sod/ Tazobactam Sod 50 ml @ 12.5 mls/hr Q12HR IV 01/30/25 10:00 01/31/25 11:31 12.5 MLS/HR Aspirin 81 mg DAILY PO 01/31/25 10:00 01/31/25 11:30 81 MG Furosemide 40 mg BIDD IV 01/30/25 18:00 01/31/25 06:31 40 MG Calcium Acetate 667 mg TIDWMEALS PO 01/31/25 08:00 01/31/25 08:43 667 MG Heparin Sodium/ Dextrose 250 ml @ 8 mls/hr Q24H IV 01/30/25 23:00 01/30/25 23:19 8 MLS/HR Examination Physical examination: General Appearance: Alert, Oriented X3, Cooperative, No acute distress HEENT: Atraumatic, PERRLA, EOMI, Mucous membrane moist/pink Respiratory: Bilateral crackles Cardiovascular: Regular rate, Normal S1, Normal S2, No murmurs, no chest wall tenderness Abdominal: Normal bowel sounds, Soft, No tenderness, No hepatospenomegaly, No masses Extremities: No clubbing, No cyanosis, No edema, Normal pulses, No tenderness/swelling Skin: No rashes, except past surgical scars Neuro: Normal speech, Strength at 5/5 X4 ext, Normal tone, Sensation intact, Cranial nerves 3-12 NL, Reflexes 2+ Psych/Mental Status: Mental status NL, Mood NL laboratory and microbiology Laboratory Tests 01/31/25 06:41 Test 01/31/25 06:41 Range/Units Serum Glucose 93 74-106 mg/dL Microbiology Date/Time Source Procedure Growth Status 01/30/25 18:40 Nose MRSA Screen - Final Methicillin Resistant S.aureus Complete Labs and/or images reviewed: Labs reviewed by me, Image(s) reviewed by me Problem List/Assessment/Plan Problem List/Assessment/Plan Assessment and plan # 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 # Acute complicated cystitis # Possible NSTEMI type 2 # Acute on chronic systolic heart failure with reduced ejection fraction # Transaminitis with coagulopathy Plan: - Hemodialysis today - kidney ultrasound demonstrated left staghorn calculus, moderate left hydronephrosis, small nonobstructive calculi at the inferior pole of the right kidney. - consulted Urology for further evaluation and management of kidney stone - IV Lasix 40 mg b.i.d. - urine culture revealed ESBL E coli in [place] and recommended antibiotic according to the sensitivity. - Other management as per primary - Monitor BMP Thank you so much for the opportunity to consult on your patient. Nephro team will follow the patient. In case of any questions or concerns please feel free to reach out. Plan discussed with . The patient and caregiver team agreed to the plan. Addendum Patient seen and examined, plan discussed with resident. Agree with above, we will follow closely chairtime with DCD Plan discussed with: Patient, Other My Orders My Orders Orders - KADY LEON Procedure Category Date Status Time Kidney US 01/30/25 Resulted 15:48 * Urology Consult CONS 01/30/25 Transmitted 17:16 Furosemide Injection PHA 01/30/25 In Process (Lasix Injection) 18:00 Calcium Acetate PHA 01/31/25 In Process Capsule (Phoslo 08:00 Communication Order ORDERS 01/30/25 Transmitted 18:47 Iron Panel LAB 01/31/25 In Process 09:54 Ferritin LAB 01/31/25 In Process 09:54 KADY LEON Jan 31, 2025 13:51 VERITO POSEY MD Jan 31, 2025 19:00
[2025-01-31 13:52] LABS: Total Iron Binding Capacity 262.0 ug/dL (250-425)
[2025-01-31 13:53] LABS: Iron 22.0 ug/dL (65-175)
[2025-01-31 13:55] LABS: INR 1.55 (0.9-1.15); Prothrombin Time 15.7 sec (9.3-11.8)
[2025-01-31 14:08] LABS: Partial Thromboplastin Time 84.2 SEC (24.5-34.5)
--- NOTE | 2025-01-31 14:17 | CONS ---
Pharmacy Clinical Information: HEPARIN DRIP, ACS PROTOCOL @1250 APTT = 84.2 NO BOLUS, REDUCE RATE BY 200 UNITS/HR NEXT APTT SCHEDULED FOR 01/31 @2029 PER RX PROTOCOL CONFIRMED AND READ BACK WITH ELIZ FARRELL [facility] RESIDENT Jan 31, 2025 14:17
[2025-01-31] MEDS: HEPARIN DRIP/D5W 100UNITS/ML 250 ML IV SCH (14:20)
--- NOTE | 2025-01-31 16:04 | DVH ---
BLADDER ULTRASOUND REASON FOR EXAM: Ureteral jets. Bilateral hydronephrosis. The Baxter has been clamped for 3 hours. COMPARISON: US KIDNEY on DOS: 01/30/25, CT ABDOMEN PELVIS WITHOUT on DOS: 01/29/25, CT ABDOMEN PELVIS WITHOUT on DOS: 04/02/24, US KIDNEY on DOS: 04/02/24, CT ABDOMEN PELVIS WITHOUT on DOS: 12/12/23 TECHNIQUE: Real-time sector scans in multiple planes were obtained of the urinary bladder. FINDINGS: There is a Baxter catheter balloon within the urinary bladder. The Baxter balloon contains air bubbles which obscure evaluation of the lower portion of the bladder. The ureteral jets are not visualized, possibly secondary to air bubbles within the Baxter balloon. The urinary bladder is not di stended at the time of examination. IMPRESSION: Nondistended urinary bladder despite the Baxter catheter reportedly being clamped for 3 hours prior to the exam. Correlate clinically for possible causes of decreased urine output. The area of the ureterovesical orifice (ureteral jets) is not seen on the current study due to air bu bbles within the Baxter catheter balloon obstructing the ultrasound beam.
[2025-01-31 16:43] LABS: INR 1.52 (0.9-1.15); Partial Thromboplastin Time 65.1 SEC (24.5-34.5); Prothrombin Time 15.5 sec (9.3-11.8)
[2025-01-31 17:00] VITALS: BP 116/80; PULSE 61; RESP 17; TEMP 98.3; O2SAT 92
[2025-01-31 20:00] VITALS: PULSE 93; PULSE 97; RESP 16; O2SAT 94
[2025-01-31 21:00] VITALS: BP 107/70; PULSE 97; RESP 16; TEMP 97.9; O2SAT 94
[2025-01-31 21:16] LABS: INR 1.48 (0.9-1.15); Partial Thromboplastin Time 56.3 SEC (24.5-34.5); Prothrombin Time 15.1 sec (9.3-11.8)
--- NOTE | 2025-01-31 21:19 | DVHPN2 ---
Progress Note - Dictate Date Seen: Jan 31, 2025 Has the PT tested + for MRSA If YES, has PT been informed?: No Medical Necessity Reason Pt with a Central, PICC or Fol: No Subjective Patient was seen and evaluated in follow-up. Patient reports his urine is burning. [facility] faxed patient's urine reports today which shows ESBL positive. HGB 8.2, HCT 25.4, PT 15.7, INR 1.55, PTT 84.2, K 5.3, BUN 64, FILLER IN 5.69, CA 8.2, Iron 22, AST 566, ALT 1150. Telemetry reviewed. vital signs Vital Sign Date Time Temp Pulse Resp B/P (MAP) Pulse Ox O2 Delivery O2 Flow Rate FiO2 01/31/25 13:00 97.1 88 18 118/83 (95) 99 97.1 01/30/25 20:00 Nasal Cannula* 2 28 Total Intake and Output 01/30/25 01/30/25 01/31/25 15:00 23:00 07:00 Intake Total 500 ml Output Total 600 ml Balance -100 ml medications Current Medications Medications Dose Ordered Sig/Natan Route Start Time Stop Time Status Last Admin Dose Admin Diagnostic Test (Pha) 1 strip Q6HR 01/30/25 00:00 01/31/25 11:18 1 STRIP Insulin Human Regular Q6HR SC 01/30/25 00:00 Dextrose 50 ml UD PRN IV 01/29/25 18:15 Pantoprazole Sodium 40 mg DAILY IV 01/30/25 10:00 01/31/25 11:30 40 MG Ondansetron HCl 4 mg Q6HPRN PRN IV 01/29/25 18:15 01/31/25 03:24 4 MG Acetaminophen 650 mg Q4HP PRN PO 01/29/25 18:15 01/31/25 06:35 650 MG Piperacillin Sod/ Tazobactam Sod 50 ml @ 12.5 mls/hr Q12HR IV 01/30/25 10:00 01/31/25 11:31 12.5 MLS/HR Aspirin 81 mg DAILY PO 01/31/25 10:00 01/31/25 11:30 81 MG Furosemide 40 mg BIDD IV 01/30/25 18:00 01/31/25 06:31 40 MG Calcium Acetate 667 mg TIDWMEALS PO 01/31/25 08:00 01/31/25 08:43 667 MG Heparin Sodium/ Dextrose 250 ml @ 6 mls/hr Q24H IV 01/31/25 14:15 01/31/25 14:20 6 MLS/HR objective GENERAL: Alert and oriented x 3. No acute distress. EYES: PERRL, EOMI. Anicteric. HENT: Moist mucous membranes. LUNGS: Clear to auscultation bilaterally. CARDIOVASCULAR: Regular rate and rhythm. ABDOMEN: Soft, nontender and nondistended. EXTREMITIES: No edema. NEUROLOGIC: No focal neurological deficits. SKIN: Warm, dry. laboratory and microbiology Laboratory Tests 01/31/25 06:41 Test 01/31/25 06:41 Range/Units Serum Glucose 93 74-106 mg/dL Problem List NSTEMI rule out progressive coronary artery disease. Rule out InStent thrombosis/restenosis. Rule out structural heart disease. Coronary artery disease status post PTCA X 1 ADRIAN (noncompliant with dual antiplatelet therapy). Hypertension. Dyslipidemia. Hyperkalemia. Transaminitis. End-stage renal disease now on hemodialysis. Methamphetamine use. Tobacco use. Medical noncompliance Assessment/Plan Continued all current supportive medical care. Aspirin. GI prophylactics. Diuretics with Lasix. IV antibiotics as ordered. Heparin drip per protocol. Additional plan as per the hospital course. Plan discussed with: Patient MARIO CARNES MD Jan 31, 2025 14:36
--- NOTE | 2025-01-31 21:46 | CONS ---
Pharmacy Clinical Information: HEPARIN PER ACS PROTOCOL: APTT result of 56.3 received from draw on 01/31 @2048. Continue current rate. Rate is set at 600 units per hour (6ml/hr). Orders read back and confirmed with NASEEM Kumar @9561. Next APTT scheduled for 02/01 @ 0300. PHILIPPE ROY PHARMACIST Jan 31, 2025 21:46
[2025-01-31] MEDS: EPOETIN ALFA-EPBX 10,000 UNIT/1ML VIAL SC ONE (23:09)
[2025-02-01] VITALS (8 sets, daily range): BP systolic 93–116; BP diastolic 62–78; PULSE 70–103; RESP 14–18; TEMP 97.9–98.5; O2SAT 96–100
[2025-02-01] MEDS: MUPIROCIN 2% OINT 15gm or 22gm FOR MRSA NARES EACHNOSTRI SCH (00:24)
[2025-02-01 04:11] LABS: Hematocrit 27.3 % (41.0-53.0); Hemoglobin 8.6 g/dL (13.5-17.5); Mean Corpuscular Hemoglobin 25.8 pg (28.0-32.0); Mean Corpuscular Volume 81.4 fL (80.0-100.0); Nucleated Red Blood Cells % 0.2 %
[2025-02-01 04:24] LABS: Chloride 101 mmol/L (98-107); Potassium 4.6 mmol/L (3.5-5.1); Sodium 138 mmol/L (136-145)
[2025-02-01 04:25] LABS: INR 1.43 (0.9-1.15); Partial Thromboplastin Time 47.7 SEC (24.5-34.5); Prothrombin Time 14.6 sec (9.3-11.8)
[2025-02-01 04:26] LABS: Anion Gap 9 (5-15); Carbon Dioxide 28 mmol/L (20-31)
[2025-02-01 04:30] LABS: Calcium 8.4 mg/dL (8.7-10.4)
[2025-02-01 04:31] LABS: BUN/Creatinine Ratio 9.2 (10.0-20.0); Glucose 102 mg/dL (74-106)
[2025-02-01 04:38] LABS: Blood Urea Nitrogen 35 mg/dL (9-23)
[2025-02-01] MEDS: HEPARIN DRIP/D5W 100UNITS/ML 250 ML IV SCH ×2 (05:38→12:11)
[2025-02-01] MEDS: FUROSEMIDE 40 MG/4 ML VIAL IV ONE (08:00)
--- NOTE | 2025-02-01 09:38 | ECG ---
[facility] Test Date: 2025-01-29 Test Time: 18:19:49 Pat Name: AMARILIS RECINOS Department: [facility] ED Patient ID: [facility]-[id number] Room: 0239T A Gender: M Microbiology Technician: shante : 1955 Requested By: VELMA PLUNKETT Order Number: [id number] Reading MD: Aman Saeed Measurements Intervals [place] Rate: 110 P: 79 CO: 159 QRS: 15 QRSD: 99 T: 234 QT: 389 QTc: 527 Interpretive Statements Sinus tachycardia Borderline low voltage, extremity leads Consider RVH w/ secondary repol abnormality Probable LVH with secondary repol abnrm Abnormal T, probable ischemia, lateral leads Prolonged QT interval Baseline wander in lead(s) V5,V6 Electronically Signed On 02-03-2025 18:38:46 PDT by Aman Saeed Please click the below link to view image of tracing.
--- NOTE | 2025-02-01 09:38 | ECG ---
[facility] Test Date: 2025-01-29 Test Time: 21:17:14 Pat Name: AMARILIS RECINOS Department: [facility] ED Patient ID: [facility]-[id number] Room: 0239T A Gender: M Station Manager: HAMILTON : 1955 Requested By: VELMA PLUNKETT Order Number: [id number] Reading MD: Aman Saeed Measurements Intervals [place] Rate: 102 P: 70 AK: 158 QRS: -8 QRSD: 111 T: 211 QT: 378 QTc: 493 Interpretive Statements Sinus tachycardia Atrial premature complex Consider RVH w/ secondary repol abnormality Repol abnrm suggests ischemia, diffuse leads Electronically Signed On 02-03-2025 18:38:52 PDT by Aman Saeed Please click the below link to view image of tracing.
[2025-02-01] MEDS: FUROSEMIDE 40 MG/4 ML VIAL ONE (10:13)
[2025-02-01 11:15] LABS: Hematocrit 27.2 % (41.0-53.0); Hemoglobin 8.7 g/dL (13.5-17.5); Mean Corpuscular Hemoglobin 25.8 pg (28.0-32.0); Mean Corpuscular Volume 80.5 fL (80.0-100.0); Nucleated Red Blood Cells % 0.2 %
[2025-02-01 11:29] LABS: INR 1.36 (0.9-1.15); Partial Thromboplastin Time 38.3 SEC (24.5-34.5); Prothrombin Time 14.0 sec (9.3-11.8)
--- NOTE | 2025-02-01 11:38 | CONS ---
Pharmacy Clinical Information: HEPARIN DRIP, ACS PROTOCOL @1100 APTT 38.3 - NO BOLUS, INCREASE HEPARIN DRIP RATE TO 1000 UNITS/HR NEXT APTT DRAW SCHEDULED @1800 PER RX PROTOCOL CONFIRMED AND READ BACK WITH SHERWIN NUNEZ [facility] RESIDENT Feb 01, 2025 11:38
[2025-02-01] MEDS: FERROUS SULFATE 325mg EC TAB PO ONE (11:57)
[2025-02-01] MEDS: ERTAPENEM SOD INJ 0.5 GM in SODIUM CHL 0.9% 50 ML IV SCH (12:20)
--- NOTE | 2025-02-01 12:38 | DVHPNRES ---
Progress Note Date Seen: Feb 01, 2025 Resident Creating Document: PENG GUILLORY RESIDENT Has the PT tested + for MRSA If YES, has PT been informed?: No Medical Necessity Reason Pt with a Central, PICC or Fol: No Subjective Review of Systems This is a 69-year-old male with past medical history of coronary artery disease with stent placement eight months ago, End-stage renal disease (makes urine and has had one dialysis done until now -yesterday at [facility]), came in with chief complaints of abdominal pain, vomiting and diarrhea. Patient was transferred from [facility] due to hyperkalemia and hydronephrosis with a Geo catheter and Allred's catheter in place. Prior to transfer, patient was given Dilaudid for pain. Patient states that he had a sharp generalized abdominal pain which was acute, rates it as 10/10, constant and associated with 4 episodes of watery vomiting, which was not mixed with blood, as well as 4 episodes of watery diarrhea, which did not have any blood or mucus in it. He has not been able to keep anything down and states that he feels weakness and could hardly walk since yesterday. On inquiry patient states that he took marijuana one week ago, which also cause nausea and for him to throw up. Patient denies having any food from outside, has had no sick contacts or taken any new medication recently. He does not have any shortness of breath, chest pain but complains still of nausea. Patient also reported that he had one dialysis session yesterday at [facility] and that his kidneys are not working. He is a poor historian and does not know the other comorbidities he has, he states he does not take any medication at home but that he took Plavix and aspirin for a few months and stopped a few months ago believing it didnt really help him in any way. Past medical history: Coronary artery disease with a stent placement eight months ago, end-stage renal disease on hemodialysis Past surgical history: Denies any surgery in the past Family history: Patient states both mother and father due to [place] Social history: Patient lives at his home with his friends. He smokes 4-5 cigarettes per day now but previously used to smoke one pack per day for the past 60 years. He states he quit alcohol 37 years ago and does not drink anymore. He takes marijuana occasionally and the last one was one week ago. Used to take methamphetamine a while back. Allergies: None Code status: Full code 01/30/2025: Patient was seen and examined by me today. Patient reports feeling much better than yesterday. We are doing a cardiology consult as there were T- wave changes multiple leads and troponins are up trending. cardiology on board. 01/31/2025: Patient was seen and examined by me today. Patient reports his urine is burning. [facility] today faxed patient's urine reports which shows ESBL positive. Ertapenem started. Cardiology on board, patient going to refuse laborer tomorrow. 02/01/2025: Patient was seen and examined by me today. Heparin drip continued. Cardiology on board. Nephrology on board as well and patient underwent hemodialysis yesterday and tolerated it well. Objective vital signs Vital Sign Date Time Temp Pulse Resp B/P (MAP) Pulse Ox O2 Delivery O2 Flow Rate FiO2 02/01/25 08:00 117/78 02/01/25 05:00 97.9 88 17 96 97.9 01/31/25 20:00 Nasal Cannula* 2 28 Total Intake and Output 01/31/25 01/31/25 02/01/25 15:00 23:00 07:00 Intake Total 1119 ml 400 ml Output Total 600 ml 1450 ml Balance 519 ml -1050 ml medications Current Medications Medications Dose Ordered Sig/Natan Route Start Time Stop Time Status Last Admin Dose Admin Diagnostic Test (Pha) 1 strip Q6HR 01/30/25 00:00 02/01/25 11:58 1 STRIP Insulin Human Regular Q6HR SC 01/30/25 00:00 02/01/25 05:46 2 UNITS Dextrose 50 ml UD PRN IV 01/29/25 18:15 Pantoprazole Sodium 40 mg DAILY IV 01/30/25 10:00 02/01/25 08:30 40 MG Ondansetron HCl 4 mg Q6HPRN PRN IV 01/29/25 18:01/31/25 03:24 4 MG Acetaminophen 650 mg Q4HP PRN PO 01/29/25 18:15 02/01/25 05:39 650 MG Aspirin 81 mg DAILY PO 01/31/25 10:00 01/31/25 11:30 81 MG Furosemide 40 mg BIDD IV 01/30/25 18:00 02/01/25 06:10 40 MG Calcium Acetate 667 mg TIDWMEALS PO 01/31/25 08:00 02/01/25 11:56 667 MG Ertapenem 0.5 gm/ Sodium Chloride 50 ml @ 100 mls/hr DAILY IV 02/01/25 10:00 02/01/25 12:20 100 MLS/HR Ferrous Sulfate 325 mg BIDWM PO 02/01/25 18:00 Heparin Sodium/ Dextrose 250 ml @ 10 mls/hr Q24H IV 02/01/25 11:45 02/01/25 12:11 10 MLS/HR Examination Pt is lying on bed General Appearance: Alert, Oriented X3, Cooperative, mild distress HEENT: Atraumatic, Mucous membranes moist/pink Respiratory: Clear to auscultation, Normal air movement, No added sounds Cardiovascular: Regular rate, Normal S1, Normal S2, No murmurs Abdominal: Active bowel sounds, Soft, no distention, no tenderness Extremities: No edema, Normal pulses, No tenderness/swelling Skin: No Significant rash, except past surgical scars Neuro: Normal speech, sensorimotor deficits none Psych/Mental Status: Mental status NL, Mood NL Nurse was there as glove cuffer during examination laboratory and microbiology Laboratory Tests 02/01/25 11:00 02/01/25 03:50 Test 02/01/25 03:50 Range/Units Serum Glucose 102 74-106 mg/dL Microbiology Date/Time Source Procedure Growth Status 01/30/25 18:40 Nose MRSA Screen - Final Methicillin Resistant S.aureus Complete 01/29/25 09:10 Voided Urine Urine Culture - Preliminary Resulted Labs and/or images reviewed: Labs reviewed by me, Image(s) reviewed by me Problem List/Assessment/Plan Problem List/Assessment/Plan Possible gastroenteritis transaminitis -ast 2145, alt 1848, ALP 158, uptrending today -500 bolus of 0.5 mL saline once -Zofran 4 mg IV q.6 PRN -pain control with acetaminophen 650 mg p.o. q.4 PRN -IV Protonix 40 mg -stool WBC -stool bacterial culture -Clostridium difficile -UDS negative -serum alcohol level normal -hepatitis panel-hep C antibody positive -COVID, flu test neg -MRSA positive B/L hydronephrosis on imaging ESRD on hemodialysis Anemia of chronic disease due to above UTI, ESBL positive(reports sent from [facility]) -creatinine 4.12, BUN 63 -CT abdomen pelvis without contrast shows: Relatively mild bilateral hydronephrosis with thickened urinary bladder and Allred catheter in-situ. -UA shows color brown, protein 2+, blood 3+, leukocyte esterase 2+, urine RBC 202, urine WBC clumps present, WBC 2795 -nephrology on board -allred catheter -ertapenem begun on 01/31/2025 acute systolic/diastolic CHF, HFpEF 25% NSTEMI likely Type 2 History of coronary artery disease -troponin I elevated 267> 297> 448> 585> 891> 814 -BNP- 2207 -EKG on 01/30: Sinus tachycardia; Incomplete right bundle branch block; Repol abnrm suggests ischemia, diffuse leads -telemetry -Aspirin 162 mg once -Atorvastatin 80 mg -Echo shows dilated all cardiac chambers, global LV and right ventricular hypokinesis, severe MR, major LV systolic dysfunction, left ventricle ejection fraction only 25%, moderate degree LVH and moderate degree LV diastolic dysfunction -CXR shows: Findings may represent congestive failure or fluid overload; Internal jugular catheter in the superior vena cava above the right atrium. -cardiology consult suggested transthoracic echocardiogram to evaluate cardiac function, chest pain protocol heart score 8 points, HOSSEIN score of 4 points, heparin drip per ACS protocol, antiplatelet therapy, initiate lipid-lowering agent with improved LFTs, close cardiac surveillance -Cardiology on board Hypoglycemia ( 40 on admission) -dextrose 50% syringe once -D5W 5% IV 30 mL/hour 1 bolus -Accu-Cheks GI prophylaxis: Protonix 40 mg IV daily Diet: Clear liquid diet Goals of care discussed with the patient for more than 27 minutes: Full code status Case discussed with Dr. Guajardo, patient and nurse. Plan discussed with: Patient My Orders My Orders Orders - PENG GUILLORY RESIDENT Procedure Category Date Status Time Npo After Midnight CINDY 01/31/25 In Process 15:48 Npo (Nothing By DIET 02/01/25 Transmitted Mouth) Diet Breakfast Clostridium Difficile MYKEL 02/01/25 In Process Toxin 06:00 Date of Service: Feb 01, 2025 Billing Provider: HOLLY GUAJARDO MD, SREYA RESIDENT Feb 01, 2025 12:38
--- NOTE | 2025-02-01 12:54 | DVH ---
Procedure: NM NM MAG3 RENAL SCAN Exam Date: 02/01/2025 09:29 AM. Clinical History: bilateral hydronephrosis Comparison Study: US BLADDER on DOS: 01/31/25, US KIDNEY on DOS: 01/30/25, US KIDNEY on DOS: 04/02/24 , US KIDNEY on DOS: 05/27/23, US KIDNEY on DOS: 11/07/22 Nuclear Medicine Renal Scan with Lasix. Technique: Following the intravenous administration of 10.4 mCi of technetium 99m labeled MAG-3 , tobi w images were acquired in one second intervals. This was followed by functional imaging of the kidn eys in the posterior projection which were obtained at 20 seconds intervals reconstructed into 2 min larissa frames for a total of 34 minutes. 40 mg of Lasix were given IV at the 10 minute nikhil. Flow cur ves and functional renogram curves were generated. Split function data were generated from the firs t three minutes of the study. Findings: The functional data was obtained with the renal pelvis included in the region of interest: Left: Peak time on the left is 39 minutes. Peak to 1/2 peak on the left is na minutes. Diuretic T 1/2 on the left is na minutes. Right: Peak time on the right is 25 minutes. Peak to 1/2 peak on the right is 46 minutes. Diuretic T 1/2 on the right is 46 minutes. Split function is 64 % on the left and 36 % on the right. IMPRESSION: Atrophic right kidney demonstrating minimal uptake and excretion. Delayed uptake and non responsiveness to diuretic administration in the left kidney suggesting functi onal obstruction.
[2025-02-01] MEDS: FERROUS SULFATE 325mg EC TAB PO SCH (17:42)
--- NOTE | 2025-02-01 17:54 | DVHPN2 ---
Progress Note Date Seen: Feb 01, 2025 Resident Creating Document: KADY LEON RESIDENT Has the PT tested + for MRSA If YES, has PT been informed?: No Medical Necessity Reason Pt with a Central, PICC or Fol: No Subjective Review of Systems patient was seen and examined on the bedside. He is alert oriented x3. complaint of generalized weakness, burning sensation in the urine and no other active complaint. Objective vital signs Vital Sign Date Time Temp Pulse Resp B/P (MAP) Pulse Ox O2 Delivery O2 Flow Rate FiO2 02/01/25 13:00 98.5 88 18 93/66 (75) 96 98.5 02/01/25 08:00 Nasal Cannula* 2 28 Total Intake and Output 01/31/25 01/31/25 02/01/25 15:00 23:00 07:00 Intake Total 1119 ml 400 ml Output Total 600 ml 1450 ml Balance 519 ml -1050 ml medications Current Medications Medications Dose Ordered Sig/Natan Route Start Time Stop Time Status Last Admin Dose Admin Diagnostic Test (Pha) 1 strip Q6HR 01/30/25 00:00 02/01/25 11:58 1 STRIP Insulin Human Regular Q6HR SC 01/30/25 00:00 02/01/25 05:46 2 UNITS Dextrose 50 ml UD PRN IV 01/29/25 18:15 Pantoprazole Sodium 40 mg DAILY IV 01/30/25 10:00 02/01/25 08:30 40 MG Ondansetron HCl 4 mg Q6HPRN PRN IV 01/29/25 18:15 01/31/25 03:24 4 MG Acetaminophen 650 mg Q4HP PRN PO 01/29/25 18:15 02/01/25 05:39 650 MG Aspirin 81 mg DAILY PO 01/31/25 10:00 01/31/25 11:30 81 MG Furosemide 40 mg BIDD IV 01/30/25 18:00 02/01/25 06:10 40 MG Calcium Acetate 667 mg TIDWMEALS PO 01/31/25 08:00 02/01/25 11:56 667 MG Ertapenem 0.5 gm/ Sodium Chloride 50 ml @ 100 mls/hr DAILY IV 02/01/25 10:00 02/01/25 12:20 100 MLS/HR Ferrous Sulfate 325 mg BIDWM PO 02/01/25 18:00 Heparin Sodium/ Dextrose 250 ml @ 10 mls/hr Q24H IV 02/01/25 11:45 02/01/25 12:11 10 MLS/HR Mupirocin 1 applic BID EACHNOSTRI 02/01/25 22:00 02/06/25 21:59 Examination Physical examination: General Appearance: Alert, Oriented X3, Cooperative, No acute distress HEENT: Atraumatic, PERRLA, EOMI, Mucous membrane moist/pink Respiratory: right IJ Geo catheter, Bilateral crackles Cardiovascular: Regular rate, Normal S1, Normal S2, No murmurs, no chest wall tenderness Abdominal: Normal bowel sounds, Soft, No tenderness, No hepatospenomegaly, No masses Extremities: No clubbing, No cyanosis, No edema, Normal pulses, No tenderness/swelling Skin: No rashes, except past surgical scars Neuro: Normal speech, Strength at 5/5 X4 ext, Normal tone, Sensation intact, Cranial nerves 3-12 NL, Reflexes 2+ Psych/Mental Status: Mental status NL, Mood NL laboratory and microbiology Laboratory Tests 02/01/25 11:00 02/01/25 03:50 Test 02/01/25 03:50 Range/Units Serum Glucose 102 74-106 mg/dL Microbiology Date/Time Source Procedure Growth Status 02/01/25 06:00 Stool Clostridium difficile Toxin Assay - Final Complete 01/30/25 18:40 Nose MRSA Screen - Final Methicillin Resistant S.aureus Complete 01/29/25 09:10 Voided Urine Urine Culture - Preliminary Resulted Labs and/or images reviewed: Labs reviewed by me, Image(s) reviewed by me Problem List/Assessment/Plan Problem List/Assessment/Plan Assessment and plan # 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 # Acute complicated cystitis # Possible NSTEMI type 2 # Acute on chronic systolic heart failure with reduced ejection fraction # Transaminitis with coagulopathy Plan: - Consulted IR for tunneled catheter placement for continuing dialysis as outpatient - Consulted psych social worker to arrange outpatient chair time close the patient residence in [place] - Hemodialysis tomorrow - kidney ultrasound demonstrated left staghorn calculus, moderate left hydronephrosis, small nonobstructive calculi at the inferior pole of the right kidney. - Appreciate urology consultation - IV Lasix 40 mg b.i.d. - urine culture revealed ESBL E coli in [place] - continue IV ertapenem and other management as per primary - Monitor BMP Thank you so much for the opportunity to consult on your patient. Nephro team will follow the patient. In case of any questions or concerns please feel free to reach out. Plan discussed with . The patient and caregiver team agreed to the plan. Addendum Patient seen and examined, plan discussed with resident. Agree with above, we will follow closely need chairtime in [facility] Plan discussed with: Patient, Other (RN) My Orders My Orders Orders - KADY LEON Procedure Category Date Status Time Ferrous Sulfate Tablet PHA 02/01/25 In Process 18:00 * Radiologist Consult CONS 02/01/25 Transmitted 12:09 * Project Development Engineer CONS 02/01/25 Transmitted Consult KADY ELON Feb 01, 2025 17:54 VERITO POSEY MD Feb 01, 2025 21:44
[2025-02-01] MEDS: ANGIOMAX 250 MG VIAL IV ONE (19:53)
[2025-02-01] MEDS: fentaNYL CITRATE 100 MCG/2 ML VL ONE (19:54)
[2025-02-01] MEDS: HEPARIN SODIUM (PORCINE) 5000 UNITS/ML 1ML VIAL ONE (19:54)
[2025-02-01] MEDS: VERAPAMIL 2.5MG/ML INJ 2ML VIAL IV ONE (19:54)
[2025-02-01] MEDS: LIDOCAINE 2%HCL (LOCAL ANESTH.) INJ 20ML MDV ONE (19:55)
[2025-02-01] MEDS: MIDAZOLAM HCL 2MG/2ML 2ml VIAL (1mg/ml) ONE (19:55)
[2025-02-01] MEDS: SODIUM CHL 0.9% 0 ML ONE (19:55)
--- NOTE | 2025-02-01 22:21 | DVHPN2 ---
Progress Note - Dictate Date Seen: Feb 01, 2025 Has the PT tested + for MRSA If YES, has PT been informed?: No Medical Necessity Reason Pt with a Central, PICC or Fol: No Subjective Patient was seen and evaluated in follow up. Patient is complaining of burning with urination. HGB 8.7, HCT 27.2, BUN 35, HEALTH PROMOTION SPECIALIST 3.82, CA 8.4. Renal scan is pending. Telemetry reviewed. vital signs Vital Sign Date Time Temp Pulse Resp B/P (MAP) Pulse Ox O2 Delivery O2 Flow Rate FiO2 02/01/25 08:00 117/78 02/01/25 05:00 97.9 88 17 96 97.9 01/31/25 20:00 Nasal Cannula* 2 28 Total Intake and Output 01/31/25 01/31/25 02/01/25 15:00 23:00 07:00 Intake Total 1119 ml 400 ml Output Total 600 ml 1450 ml Balance 519 ml -1050 ml medications Current Medications Medications Dose Ordered Sig/Natan Route Start Time Stop Time Status Last Admin Dose Admin Diagnostic Test (Pha) 1 strip Q6HR 01/30/25 00:00 02/01/25 11:58 1 STRIP Insulin Human Regular Q6HR SC 01/30/25 00:00 02/01/25 05:46 2 UNITS Dextrose 50 ml UD PRN IV 01/29/25 18:15 Pantoprazole Sodium 40 mg DAILY IV 01/30/25 10:00 02/01/25 08:30 40 MG Ondansetron HCl 4 mg Q6HPRN PRN IV 01/29/25 18:15 01/31/25 03:24 4 MG Acetaminophen 650 mg Q4HP PRN PO 01/29/25 18:15 02/01/25 05:39 650 MG Aspirin 81 mg DAILY PO 01/31/25 10:00 01/31/25 11:30 81 MG Furosemide 40 mg BIDD IV 01/30/25 18:00 02/01/25 06:10 40 MG Calcium Acetate 667 mg TIDWMEALS PO 01/31/25 08:00 02/01/25 11:56 667 MG Ertapenem 0.5 gm/ Sodium Chloride 50 ml @ 100 mls/hr DAILY IV 02/01/25 10:00 Ferrous Sulfate 325 mg BIDWM PO 02/01/25 18:00 Heparin Sodium/ Dextrose 250 ml @ 10 mls/hr Q24H IV 02/01/25 11:45 02/01/25 12:11 10 MLS/HR objective GENERAL: Alert and oriented x 3. No acute distress. EYES: PERRL, EOMI. Anicteric. HENT: Moist mucous membranes. LUNGS: Clear to auscultation bilaterally. CARDIOVASCULAR: Regular rate and rhythm. ABDOMEN: Soft, nontender and nondistended. EXTREMITIES: No edema. NEUROLOGIC: No focal neurological deficits. SKIN: Warm, dry. laboratory and microbiology Laboratory Tests 02/01/25 11:00 02/01/25 03:50 Test 02/01/25 03:50 Range/Units Serum Glucose 102 74-106 mg/dL Problem List NSTEMI rule out progressive coronary artery disease. Rule out InStent thrombosis/restenosis. Rule out structural heart disease. Coronary artery disease status post PTCA X 1 ADRIAN (noncompliant with dual antiplatelet therapy). Hypertension. Dyslipidemia. Hyperkalemia. Transaminitis. End-stage renal disease now on hemodialysis. Methamphetamine use. Tobacco use. Medical noncompliance Assessment/Plan Continued all current supportive medical care. GI prophylactics. Diuretics with Lasix. IV antibiotics as ordered. Heparin drip per protocol. Additional plan as per the hospital course. Plan discussed with: Patient MARIO CARNES MD Feb 01, 2025 12:19
--- NOTE | 2025-02-01 22:58 | DVHOP ---
DATE OF SURGERY: 02/01/2025 TECHNIQUES PERFORMED: * Ultrasound of the right iliac artery. * Management of conscious sedation. * Left heart catheterization. * Left ventriculogram. * [place] selective left and right coronary artery angiography. ASSISTANTS: Assisted by Keenan Smyth Carmira, and Francisco. INDICATION: As follows: The patient has underlying [id number] myocardial infarction. DESCRIPTION OF PROCEDURE: Risks and benefits discussed in standard manner. The risks and benefits have been explained and brought to the recyclable materials sorter. Right radial area thoroughly cleaned with soap and Betadine. A 6-Lux[place]bour[place] arterial line has been placed. A 100 mcg of nitroglycerin, 2.5 mg of verapamil, 2000 units of heparin was given. TIG catheter 5-Luxembourger 4.0 was passed and left coronary angio done. With the help of similar catheter, we also did the right coronary artery angiography. With the help of pigtail catheter, complete left heart cath also had been done. The left ventriculogram was done in the right anterior oblique view with a total of 20 mL of dye. Post-LV gram, left ventricular angiography had been performed with the help of pull-through technique. Aortic pressure was also performed. J-wire was passed. The pigtail catheter also has been discontinued. Procedure completed. These were no complications. The patient did very well. Please note that when the TIG catheter was engaged in the left main, the blood pressure dropped down from 110 down to 40. CONCLUSIONS: As follows: * The patient's left main at ostium is narrowed, more than 90%, short left main. * Left anterior descending artery in its mid region is narrowed 90%. * Circumflex and obtuse marginal artery normal. * The right coronary artery is a large dominant artery, normal. * Ejection fraction is 10%. PLAN OF ACTION: Dr. Saeed if he can do Impella assisted left main coronary intervention and a stent in the left anterior descending artery, very high risk present. Discussed with Dr. Castro. Emergency care done on 02/01/2025 Linda Turner MD MP/JOSEPH/CARLOS ALBERTO TID: [id number] RECEIPT: [id number] [facility]
[2025-02-01 23:18] LABS: INR 1.31 (0.9-1.15); Prothrombin Time 13.5 sec (9.3-11.8)
[2025-02-01 23:37] LABS: Partial Thromboplastin Time 103.3 SEC (24.5-34.5)
[2025-02-02] VITALS (14 sets, daily range): BP systolic 105–130; BP diastolic 63–90; PULSE 82–132; RESP 12–20; TEMP 97.6–98.8; O2SAT 95–100
[2025-02-02 00:01] LABS: Hematocrit 29.5 % (41.0-53.0)
[2025-02-02 00:03] LABS: Hemoglobin 9.2 g/dL (13.5-17.5)
[2025-02-02] MEDS: HEPARIN DRIP/D5W 100UNITS/ML 250 ML IV SCH ×2 (01:37→23:03)
--- NOTE | 2025-02-02 10:05 | DVHPN2 ---
Consult Progress Note Date Seen: Feb 02, 2025 Objective vital signs Vital Sign Date Time Temp Pulse Resp B/P (MAP) Pulse Ox O2 Delivery O2 Flow Rate FiO2 02/02/25 08:42 98.6 94 20 110/73 (85) 100 98.6 02/01/25 21:30 Nasal Cannula* 2 28 Total Intake and Output 02/01/25 02/01/25 02/02/25 15:00 23:00 07:00 Intake Total 171 ml 0 ml 240 ml Output Total 750 ml 1250 ml Balance 171 ml -750 ml -1010 ml medications Current Medications Medications Dose Ordered Sig/Natan Route Start Time Stop Time Status Last Admin Dose Admin Diagnostic Test (Pha) 1 strip Q6HR 01/30/25 00:00 02/02/25 06:15 1 STRIP Insulin Human Regular Q6HR SC 01/30/25 00:00 02/02/25 06:15 2 UNITS Dextrose 50 ml UD PRN IV 01/29/25 18:15 Pantoprazole Sodium 40 mg DAILY IV 01/30/25 10:00 02/02/25 08:52 40 MG Ondansetron HCl 4 mg Q6HPRN PRN IV 01/29/25 18:15 01/31/25 03:24 4 MG Acetaminophen 650 mg Q4HP PRN PO 01/29/25 18:15 02/02/25 06:24 650 MG Aspirin 81 mg DAILY PO 01/31/25 10:00 01/31/25 11:30 81 MG Furosemide 40 mg BIDD IV 01/30/25 18:00 02/02/25 06:19 40 MG Calcium Acetate 667 mg TIDWMEALS PO 01/31/25 08:00 02/01/25 11:56 667 MG Ertapenem 0.5 gm/ Sodium Chloride 50 ml @ 100 mls/hr DAILY IV 02/01/25 10:00 02/01/25 12:20 100 MLS/HR Ferrous Sulfate 325 mg BIDWM PO 02/01/25 18:00 Mupirocin 1 applic BID EACHNOSTRI 02/01/25 22:00 02/06/25 21:59 02/02/25 09:48 1 APPLIC Heparin Sodium/ Dextrose 250 ml @ 7 mls/hr Q24H IV 02/02/25 01:15 02/02/25 01:37 7 MLS/HR laboratory and microbiology Laboratory Tests 02/01/25 23:46 02/01/25 11:00 02/01/25 03:50 Test 02/01/25 03:50 Range/Units Serum Glucose 102 74-106 mg/dL Problem List/Assessment/Plan Problem List/Assessment/Plan Dr. Saeed consulted for mechanical assisted high-risk PCI. Dr. Saeed will kindly assist Dr. Turner during procedure. Next availability for Dr. Saeed will be Wednesday02/07/2025. Please arrange with Dr. Turner accordingly. Thank you for allowing us to participate in this patient's care. Plan discussed with: Other (Dr. Guajardo and Dr. Wisdom) Date of Service: Feb 02, 2025 Billing Provider: PAYAL VILLARREAL Cardiology Common Codes: NOT BILLABLE PAYAL VILLARREAL Feb 02, 2025 10:05
[2025-02-02] MEDS: fentaNYL CITRATE 100 MCG/2 ML VL ONE (10:44)
[2025-02-02] MEDS: MIDAZOLAM HCL 2MG/2ML 2ml VIAL (1mg/ml) ONE (10:44)
[2025-02-02] MEDS: HEPARIN SODIUM (PORCINE) 5000 UNITS/ML 1ML VIAL ONE (10:44)
[2025-02-02] MEDS: LIDOCAINE 2%HCL (LOCAL ANESTH.) INJ 20ML MDV ONE (10:50)
--- NOTE | 2025-02-02 11:52 | DVH ---
PROCEDURE: TUNNELED DIALYSIS CATHETER PLACEMENT USING FLUOROSCOPY AND ULTRASOUND HISTORY: 69 Male requiring dialysis for ESRD. PROCEDURE: Informed consent was obtained. The patient was placed supine on the interventional table. A limited localization ultrasound of the right neck was obtained. The right neck were prepped with ch lorhexidine which was allowed to dry and draped in the usual sterile fashion. Time out was performed. IV sedation was administered. The skin and the soft tissues were infiltrated with 1% Lidocaine mixed with Epinephrine. With real-time ultrasound guidance, the internal jugular vein was accessed with a micropuncture kit, and an image documenting patency was recorded to PACS. A subcutaneous tunneled tra ct was created from the right upper chest to the venotomy site. A 14.5 [place] path, 19 cm long hemodialysis catheter was advanced through the tunneled tract. Fluoroscopy was used to advance a guidewire through the internal jugular vein into the inferior vena cava. Following serial dilatation, a 15 Welsh peel-away sheath was introduced, though which was adva nced the catheter into the right atrium. The catheter tip position was confirmed with fluoroscopy. Th ere was satisfactory flow in both lumens. The catheter lumens were flushed with saline and heparin wa s left indwelling in the catheter. The neck incision site was closed with a Vicryl suture and dress ed sterilely. The catheter was sutured at the skin surface and exit site also dressed sterilely. No i mmediate complication was identified. FLUOROSCOPY TIME:0.5 minutes. DAP:40 SEDATION: Dr. Hinkle was personally responsible for the administration of moderate sedation during the procedure performed, including the use of an independent trained observer who had no other duties dur ing the procedure. The drugs utilized were IV fentanyl and versed (see nursing log for details). The total time of supervision by the attending physician was approximately 30 minutes. FINDINGS: Widely patent right IJV. Post procedure image demonstrates smooth course of the hemodialys is catheter with the tip in the right atrium. IMPRESSION: 1. SUCCESSFUL TUNNELED DIALYSIS CATHETER PLACEMENT. THE CATHETER IS READY FOR IMMEDIATE USE.
[2025-02-02 14:20] LABS: Hematocrit 31.4 % (41.0-53.0); Hemoglobin 9.9 g/dL (13.5-17.5); Mean Corpuscular Hemoglobin 26.2 pg (28.0-32.0); Mean Corpuscular Volume 82.9 fL (80.0-100.0); Nucleated Red Blood Cells % 0.4 %
[2025-02-02 14:21] LABS: Anion Gap 12 (5-15); Carbon Dioxide 25 mmol/L (20-31)
[2025-02-02 14:22] LABS: Calcium 8.4 mg/dL (8.7-10.4); Chloride 97 mmol/L (98-107); Potassium 5.2 mmol/L (3.5-5.1); Sodium 134 mmol/L (136-145)
[2025-02-02 14:26] LABS: BUN/Creatinine Ratio 11.4 (10.0-20.0)
[2025-02-02 14:28] LABS: Blood Urea Nitrogen 61 mg/dL (9-23); Glucose 122 mg/dL (74-106)
[2025-02-02 14:41] LABS: INR 1.29 (0.9-1.15); Partial Thromboplastin Time 34.4 SEC (24.5-34.5); Prothrombin Time 13.3 sec (9.3-11.8)
--- NOTE | 2025-02-02 15:46 | DVHPNRES ---
Progress Note Date Seen: Feb 02, 2025 Resident Creating Document: PENG GUILLORY RESIDENT Has the PT tested + for MRSA If YES, has PT been informed?: No Medical Necessity Reason Pt with a Central, PICC or Fol: Yes The following are medically ne: Allred Catheter Subjective Review of Systems This is a 69-year-old male with past medical history of coronary artery disease with stent placement eight months ago, End-stage renal disease (makes urine and has had one dialysis done until now -yesterday at [facility]), came in with chief complaints of abdominal pain, vomiting and diarrhea. Patient was transferred from [facility] due to hyperkalemia and hydronephrosis with a Geo catheter and Allred's catheter in place. Prior to transfer, patient was given Dilaudid for pain. Patient states that he had a sharp generalized abdominal pain which was acute, rates it as 10/10, constant and associated with 4 episodes of watery vomiting, which was not mixed with blood, as well as 4 episodes of watery diarrhea, which did not have any blood or mucus in it. He has not been able to keep anything down and states that he feels weakness and could hardly walk since yesterday. On inquiry patient states that he took marijuana one week ago, which also cause nausea and for him to throw up. Patient denies having any food from outside, has had no sick contacts or taken any new medication recently. He does not have any shortness of breath, chest pain but complains still of nausea. Patient also reported that he had one dialysis session yesterday at [facility] and that his kidneys are not working. He is a poor historian and does not know the other comorbidities he has, he states he does not take any medication at home but that he took Plavix and aspirin for a few months and stopped a few months ago believing it didnt really help him in any way. Past medical history: Coronary artery disease with a stent placement eight months ago, end-stage renal disease on hemodialysis Past surgical history: Denies any surgery in the past Family history: Patient states both mother and father due to [place] Social history: Patient lives at his home with his friends. He smokes 4-5 cigarettes per day now but previously used to smoke one pack per day for the past 60 years. He states he quit alcohol 37 years ago and does not drink anymore. He takes marijuana occasionally and the last one was one week ago. Used to take methamphetamine a while back. Allergies: None Code status: Full code 01/30/2025: Patient was seen and examined by me today. Patient reports feeling much better than yesterday. We are doing a cardiology consult as there were T- wave changes multiple leads and troponins are up trending. cardiology on board. 01/31/2025: Patient was seen and examined by me today. Patient reports his urine is burning. [facility] today faxed patient's urine reports which shows ESBL positive. Ertapenem started. Cardiology on board, patient going to excavation laborer tomorrow. 02/01/2025: Patient was seen and examined by me today. Heparin drip continued. Cardiology on board. Nephrology on board as well and patient underwent hemodialysis yesterday and tolerated it well. 02/02/2025: Patient was seen and examined by me today. patient was taken to the excavation laborer yesterday on 02/01/25 and pie dough roller reported ejection fraction as 10%, patient has left main ostium narrowing of more than 90%, LAD more than 90% narrowed as well. He has suggested Impella assisted left main coronary intervention and stent placement of the LAD. Waiting for further plan from Cardiology regarding Impella procedure, probable on Wednesday02/07/2025. Yesterday the patient also some how had his Geo catheter removed and called nurse when he started bleeding a lot, as per patient he did not remove it and he does not know how it came out. 1 packed red blood cell was transfused as he had bled over 300 mL according to the night team. Hemoglobin is stable at 9.2 today. Pressure was applied to the neck. Today he underwent tunneled catheter placement for hemodialysis. MRSA is positive, given and vancomycin orally has been started for C diff positive Objective vital signs Vital Sign Date Time Temp Pulse Resp B/P (MAP) Pulse Ox O2 Delivery O2 Flow Rate FiO2 02/02/25 12:35 97.6 97 18 127/80 (96) 96 97.6 02/02/25 08:00 Room Air* 0 21 Total Intake and Output 02/01/25 02/01/25 02/02/25 15:00 23:00 07:00 Intake Total 171 ml 0 ml 240 ml Output Total 750 ml 1250 ml Balance 171 ml -750 ml -1010 ml medications Current Medications Medications Dose Ordered Sig/Natan Route Start Time Stop Time Status Last Admin Dose Admin Diagnostic Test (Pha) 1 strip Q6HR 01/30/25 00:00 02/02/25 06:15 1 STRIP Insulin Human Regular Q6HR SC 01/30/25 00:00 02/02/25 06:15 2 UNITS Dextrose 50 ml UD PRN IV 01/29/25 18:15 Pantoprazole Sodium 40 mg DAILY IV 01/30/25 10:00 02/02/25 08:52 40 MG Ondansetron HCl 4 mg Q6HPRN PRN IV 01/29/25 18:15 01/31/25 03:24 4 MG Acetaminophen 650 mg Q4HP PRN PO 01/29/25 18:15 02/02/25 06:24 650 MG Aspirin 81 mg DAILY PO 01/31/25 10:00 01/31/25 11:30 81 MG Furosemide 40 mg BIDD IV 01/30/25 18:00 02/02/25 06:19 40 MG Calcium Acetate 667 mg TIDWMEALS PO 01/31/25 08:00 02/02/25 12:29 667 MG Ertapenem 0.5 gm/ Sodium Chloride 50 ml @ 100 mls/hr DAILY IV 02/01/25 10:00 02/02/25 12:29 100 MLS/HR Ferrous Sulfate 325 mg BIDWM PO 02/01/25 18:00 Mupirocin 1 applic BID EACHNOSTRI 02/01/25 22:00 02/06/25 21:59 02/02/25 09:48 1 APPLIC Heparin Sodium/ Dextrose 250 ml @ 7 mls/hr Q24H IV 02/02/25 01:15 02/02/25 01:37 7 MLS/HR Examination Pt is lying on bed General Appearance: Alert, Oriented X3, Cooperative, mild distress HEENT: Atraumatic, Mucous membranes moist/pink, on oxygen therapy via nasal cannula 2 L/min Respiratory: Clear to auscultation, Normal air movement, No added sounds Cardiovascular: Regular rate, Normal S1, Normal S2, No murmurs Abdominal: Active bowel sounds, Soft, no distention, no tenderness Extremities: No edema, Normal pulses, No tenderness/swelling Skin: No Significant rash, presence of bandage over newly placed tunneled catheter, no bleeding or soakage Neuro: Normal speech, sensorimotor deficits none Psych/Mental Status: Mental status NL, Mood NL laboratory and microbiology Laboratory Tests 02/02/25 13:48 Test 02/02/25 13:48 Range/Units Serum Glucose 122 H 74-106 mg/dL Microbiology Date/Time Source Procedure Growth Status 02/01/25 06:00 Stool Clostridium difficile Toxin Assay - Final Complete 01/30/25 18:40 Nose MRSA Screen - Final Methicillin Resistant S.aureus Complete 01/29/25 09:10 Voided Urine Urine Culture - Final Complete Labs and/or images reviewed: Labs reviewed by me, Image(s) reviewed by me Problem List/Assessment/Plan Problem List/Assessment/Plan C diff acute gastroenteritis #transaminitis -ast 2145, alt 1848, ALP 158, uptrending today -500 bolus of 0.5 mL saline once -Zofran 4 mg IV q.6 PRN -pain control with acetaminophen 650 mg p.o. q.4 PRN -IV Protonix 40 mg -stool WBC -stool bacterial culture -UDS negative -serum alcohol level normal -hepatitis panel-hep C antibody positive -COVID, flu test neg -MRSA positive -c.diff positive -vancomycin orally started today #B/L hydronephrosis on imaging #ESRD on hemodialysis #Anemia of chronic disease due to above #UTI, ESBL positive(reports sent from [facility]) -creatinine 4.12, BUN 63 -CT abdomen pelvis without contrast shows: Relatively mild bilateral hydronephrosis with thickened urinary bladder and Allred catheter in-situ. -UA shows color brown, protein 2+, blood 3+, leukocyte esterase 2+, urine RBC 202, urine WBC clumps present, WBC 2795 -nephrology on board -allred catheter -ertapenem begun on 01/31/2025 - dialysis done on 01/31/25 - Geo catheter removed on 02/01/2025 and tunnel catheter placed on 02/02/2025 #NSTEMI likely Type 2 rule out progressive coronary artery disease. #Rule out InStent thrombosis/restenosis. #Rule out structural heart disease. #acute systolic/diastolic CHF #Coronary artery disease status post PTCA X 1 ADRIAN (noncompliant with dual antiplatelet therapy). #Hypertension #History of coronary artery disease #Dyslipidemia -troponin I elevated 267> 297> 448> 585> 891> 814 -BNP- 2207 -EKG on 01/30: Sinus tachycardia; Incomplete right bundle branch block; Repol abnrm suggests ischemia, diffuse leads -telemetry -Aspirin 162 mg once -Atorvastatin 80 mg -Echo,pending -CXR shows: Findings may represent congestive failure or fluid overload; Internal jugular catheter in the superior vena cava above the right atrium. -cardiology consult suggested transthoracic echocardiogram to evaluate cardiac function, chest pain protocol heart score 8 points, HOSSEIN score of 4 points, heparin drip per ACS protocol, antiplatelet therapy, initiate lipid-lowering agent with improved LFTs, close cardiac surveillance -cardiology took the patient to excavation laborer on 02/01/2025 and reported that: '* The patient's left main at ostium is narrowed, more than 90%, short left main. * Left anterior descending artery in its mid region is narrowed 90%. * Circumflex and obtuse marginal artery normal. * The right coronary artery is a large dominant artery, normal. * Ejection fraction is 10%. PLAN OF ACTION: Dr. Saeed if he can do Impella assisted left main coronary intervention and a stent in the left anterior descending artery, very high risk present. Discussed with Dr. Castro. Emergency care done on 02/01/2025" #Hyperkalemia monitor, insulin given and stable now #Hypoglycemia ( 40 on admission) -dextrose 50% syringe once -D5W 5% IV 30 mL/hour 1 bolus -Accu-Cheks #Polysubstance use disorder including marijuana/methamphetamine/tobacco Counseled the patient for 22 minutes on polysubstance (marijuana/methamphetamine/tobacco) use cessation; exclusively 12 minutes for tobacco use cessation #Medical nonadherence Counseled the patient importance of following medical recommendation to avoid complications including - patient counseled over 12 minutes regarding the cessation of tobacco and methamphetamine the side effects they can have on his health and heart. Patient also counseled regarding the importance of compliance of medication GI prophylaxis: Protonix 40 mg IV daily Diet: Clear liquid diet Goals of care discussed with the patient for 20minutes: Full code status Case discussed with Dr. Nj, patient and nurse. Plan discussed with: Patient, Other (rn) My Orders My Orders Orders - PENG GUILLORY RESIDENT Procedure Category Date Status Time Insertion Of Venous XY 02/02/25 Resulted Cath 11:18 Dietary Evaluation Review Comments: Nutrition Recommendation 1) Consider Renal standard + cardiac diet 2) Nephro-saida 1 tab daily 3) Monitor PO intake, lab values, weight trend, and I/O Expected Outcomes/Goals: Lab values to improve Fu 3-5 days Date of Service: Feb 02, 2025 Billing Provider: ESTEPHANIE NJ MD Common Visit Codes: [id number] INP/OBS CARE(HIGH) Secondary Visit Codes: [id number] CHNG SMOKING >10MIN (Counseled the patient for 22 minutes on polysubstance (marijuana/methamphetamine/tobacco) use cessation; exclusively 12 minutes for tobacco use cessation), [id number] CARE PLAN 30 MINUTES (20 minutes) Addendum Addendum Addendum I was physically present for the yoo portions of the service provided to patient by THE RESIDENT. I have reviewed the documentation, discussed the case with resident and agree with the resident's documentation except as noted. Also the patient's clinical case was discussed with the patient's nurse. This medical document was created using an electronic medical record system with computerized dictation system. Although this document has been carefully reviewed, there might still be some phonetic and typographical errors. These areas are purely typographical due to imperfections of the software programs, and do not reflect any compromise in the patient's medical care. Late signature. PENG GUILLORY RESIDENT Feb 02, 2025 15:46 ESTEPHANIE NJ MD Feb 04, 2025 15:26
--- NOTE | 2025-02-02 16:39 | DVHPN2 ---
Progress Note Date Seen: Feb 02, 2025 Resident Creating Document: KADY LEON RESIDENT Has the PT tested + for MRSA If YES, has PT been informed?: No Medical Necessity Reason Pt with a Central, PICC or Fol: Yes The following are medically ne: Baxter Catheter Subjective Review of Systems Patient was seen and examined on the bedside. He is alert oriented x3. complaint of generalized weakness, burning sensation in the urine and no other active complaint. Objective vital signs Vital Sign Date Time Temp Pulse Resp B/P (MAP) Pulse Ox O2 Delivery O2 Flow Rate FiO2 02/02/25 12:35 97.6 97 18 127/80 (96) 96 97.6 02/02/25 08:00 Room Air* 0 21 Total Intake and Output 02/01/25 02/01/25 02/02/25 15:00 23:00 07:00 Intake Total 171 ml 0 ml 240 ml Output Total 750 ml 1250 ml Balance 171 ml -750 ml -1010 ml medications Current Medications Medications Dose Ordered Sig/Natan Route Start Time Stop Time Status Last Admin Dose Admin Diagnostic Test (Pha) 1 strip Q6HR 01/30/25 00:00 02/02/25 06:15 1 STRIP Insulin Human Regular Q6HR SC 01/30/25 00:00 02/02/25 06:15 2 UNITS Dextrose 50 ml UD PRN IV 01/29/25 18:15 Pantoprazole Sodium 40 mg DAILY IV 01/30/25 10:00 02/02/25 08:52 40 MG Ondansetron HCl 4 mg Q6HPRN PRN IV 01/29/25 18:01/31/25 03:24 4 MG Acetaminophen 650 mg Q4HP PRN PO 01/29/25 18:15 02/02/25 06:24 650 MG Aspirin 81 mg DAILY PO 01/31/25 10:00 01/31/25 11:30 81 MG Furosemide 40 mg BIDD IV 01/30/25 18:00 02/02/25 06:19 40 MG Calcium Acetate 667 mg TIDWMEALS PO 01/31/25 08:00 02/02/25 12:29 667 MG Ertapenem 0.5 gm/ Sodium Chloride 50 ml @ 100 mls/hr DAILY IV 02/01/25 10:00 02/02/25 12:29 100 MLS/HR Ferrous Sulfate 325 mg BIDWM PO 02/01/25 18:00 Mupirocin 1 applic BID EACHNOSTRI 02/01/25 22:00 02/06/25 21:59 02/02/25 09:48 1 APPLIC Heparin Sodium/ Dextrose 250 ml @ 7 mls/hr Q24H IV 02/02/25 01:15 02/02/25 01:37 7 MLS/HR Examination Physical examination: General Appearance: Alert, Oriented X3, Cooperative, No acute distress HEENT: Atraumatic, PERRLA, EOMI, Mucous membrane moist/pink Respiratory: right IJ tunnel catheter, Bilateral crackles Cardiovascular: Regular rate, Normal S1, Normal S2, No murmurs, no chest wall tenderness Abdominal: Normal bowel sounds, Soft, No tenderness, No hepatospenomegaly, No masses Extremities: No clubbing, No cyanosis, No edema, Normal pulses, No tenderness/swelling Skin: No rashes, except past surgical scars Neuro: Normal speech, Strength at 5/5 X4 ext, Normal tone, Sensation intact, Cranial nerves 3-12 NL, Reflexes 2+ Psych/Mental Status: Mental status NL, Mood NL laboratory and microbiology Laboratory Tests 02/02/25 13:48 Test 02/02/25 13:48 Range/Units Serum Glucose 122 H 74-106 mg/dL Microbiology Date/Time Source Procedure Growth Status 02/01/25 06:00 Stool Clostridium difficile Toxin Assay - Final Complete 01/30/25 18:40 Nose MRSA Screen - Final Methicillin Resistant S.aureus Complete 01/29/25 09:10 Voided Urine Urine Culture - Final Complete Labs and/or images reviewed: Labs reviewed by me, Image(s) reviewed by me Problem List/Assessment/Plan Problem List/Assessment/Plan Assessment and plan # 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 # Acute complicated cystitis # Possible NSTEMI type 2 # Acute on chronic systolic heart failure with reduced ejection fraction # Transaminitis with coagulopathy Plan: - Hemodialysis today through right IJ tunnel catheter - Consulted director of social work to arrange outpatient chair time close the patient residence in [place] - Nuclear medicine renal scan demonstrated atrophic right kidney and functional obstruction of the left side - S/P left heart catheterization and cardiology recommended high-risk PCI with Impella device. - IV Lasix 40 mg b.i.d. - Continue IV ertapenem and other management as per primary - Monitor BMP Thank you so much for the opportunity to consult on your patient. Nephro team will follow the patient. In case of any questions or concerns please feel free to reach out. Plan discussed with . The patient and caregiver team agreed to the plan. Plan discussed with: Patient, Other Dietary Evaluation Review Comments: Nutrition Recommendation 1) Consider Renal standard + cardiac diet 2) Nephro-saida 1 tab daily 3) Monitor PO intake, lab values, weight trend, and I/O Expected Outcomes/Goals: Lab values to improve Fu 3-5 days KADY LEON RESIDENT Feb 02, 2025 16:39
[2025-02-02] MEDS ORDERED: VANCOMYCIN HCL 250 MG CAP PO ONE (17:15)
[2025-02-02] MEDS: VANCOMYCIN HCL 250 MG CAP PO SCH (18:00)
--- NOTE | 2025-02-02 18:53 | DVHPN2 ---
Progress Note - Dictate Date Seen: Feb 02, 2025 Has the PT tested + for MRSA If YES, has PT been informed?: No Medical Necessity Reason Pt with a Central, PICC or Fol: No Subjective Patient was seen and evaluated in follow up. Renal scan showed atrophic right kidney demonstrating minimal uptake and excretion. Delayed uptake and non responsiveness to diuretic administration in the left kidney suggesting functional obstruction. Dr. Saeed was consulted for mechanical assisted high- risk PCI. Dr. Saeed will kindly assist me during procedure. Next availability for Dr. Saeed will be Wednesday02/07/2025. Telemetry reviewed. vital signs Vital Sign Date Time Temp Pulse Resp B/P (MAP) Pulse Ox O2 Delivery O2 Flow Rate FiO2 02/02/25 08:42 98.6 94 20 110/73 (85) 100 98.6 02/01/25 21:30 Nasal Cannula* 2 28 Total Intake and Output 02/01/25 02/01/25 02/02/25 14:59 22:59 06:59 Intake Total 171 ml 0 ml 240 ml Output Total 750 ml 1250 ml Balance 171 ml -750 ml -1010 ml medications Current Medications Medications Dose Ordered Sig/Natan Route Start Time Stop Time Status Last Admin Dose Admin Diagnostic Test (Pha) 1 strip Q6HR 01/30/25 00:00 02/02/25 06:15 1 STRIP Insulin Human Regular Q6HR SC 01/30/25 00:00 02/02/25 06:15 2 UNITS Dextrose 50 ml UD PRN IV 01/29/25 18:15 Pantoprazole Sodium 40 mg DAILY IV 01/30/25 10:00 02/02/25 08:52 40 MG Ondansetron HCl 4 mg Q6HPRN PRN IV 01/29/25 18:15 01/31/25 03:24 4 MG Acetaminophen 650 mg Q4HP PRN PO 01/29/25 18:15 02/02/25 06:24 650 MG Aspirin 81 mg DAILY PO 01/31/25 10:00 01/31/25 11:30 81 MG Furosemide 40 mg BIDD IV 01/30/25 18:00 02/02/25 06:19 40 MG Calcium Acetate 667 mg TIDWMEALS PO 01/31/25 08:00 02/01/25 11:56 667 MG Ertapenem 0.5 gm/ Sodium Chloride 50 ml @ 100 mls/hr DAILY IV 02/01/25 10:00 02/01/25 12:20 100 MLS/HR Ferrous Sulfate 325 mg BIDWM PO 02/01/25 18:00 Mupirocin 1 applic BID EACHNOSTRI 02/01/25 22:00 02/06/25 21:59 02/02/25 09:48 1 APPLIC Heparin Sodium/ Dextrose 250 ml @ 7 mls/hr Q24H IV 02/02/25 01:15 02/02/25 01:37 7 MLS/HR objective GENERAL: Alert and oriented x 3. No acute distress. EYES: PERRL, EOMI. Anicteric. HENT: Moist mucous membranes. LUNGS: Clear to auscultation bilaterally. CARDIOVASCULAR: Regular rate and rhythm. ABDOMEN: Soft, nontender and nondistended. EXTREMITIES: No edema. NEUROLOGIC: No focal neurological deficits. SKIN: Warm, dry. laboratory and microbiology Laboratory Tests 02/01/25 23:46 02/01/25 11:00 02/01/25 03:50 Test 02/01/25 03:50 Range/Units Serum Glucose 102 74-106 mg/dL Problem List NSTEMI rule out progressive coronary artery disease. Rule out InStent thrombosis/restenosis. Rule out structural heart disease. Coronary artery disease status post PTCA X 1 ADRIAN (noncompliant with dual antiplatelet therapy). Hypertension. Dyslipidemia. Hyperkalemia. Transaminitis. End-stage renal disease now on hemodialysis. Methamphetamine use. Tobacco use. Medical noncompliance Assessment/Plan Continued all current supportive medical care. GI prophylactics. Diuretics with Lasix. Heparin drip per protocol. Additional plan as per the hospital course. Dietary Evaluation Review Comments: Nutrition Recommendation 1) Consider Renal standard + cardiac diet 2) Nephro-saida 1 tab daily 3) Monitor PO intake, lab values, weight trend, and I/O Expected Outcomes/Goals: Lab values to improve Fu 3-5 days Plan discussed with: Patient MARIO CARNES MD Feb 02, 2025 12:25
[2025-02-02 19:32] LABS: INR 1.3 (0.9-1.15); Prothrombin Time 13.4 sec (9.3-11.8)
[2025-02-02 19:35] LABS: Partial Thromboplastin Time 117.4 SEC (24.5-34.5)
[2025-02-02] MEDS ORDERED: HEPARIN DRIP/D5W 100UNITS/ML 250 ML IV SCH ×4 (21:00→23:00)
[2025-02-02] MEDS: FLORASTOR (S. BOULARDII) 250 MG CAP PO SCH (21:10)
[2025-02-03] VITALS (8 sets, daily range): BP systolic 118–135; BP diastolic 79–93; PULSE 76–97; RESP 15–19; TEMP 98–98.7; O2SAT 95–99
[2025-02-03 03:40] LABS: Chloride 99 mmol/L (98-107); Potassium 4.6 mmol/L (3.5-5.1); Sodium 136 mmol/L (136-145)
[2025-02-03 03:41] LABS: Anion Gap 9 (5-15); Carbon Dioxide 28 mmol/L (20-31)
[2025-02-03 03:42] LABS: Calcium 8.2 mg/dL (8.7-10.4)
[2025-02-03 03:46] LABS: BUN/Creatinine Ratio 8.5 (10.0-20.0)
[2025-02-03 03:47] LABS: Hematocrit 25.9 % (41.0-53.0); Hemoglobin 8.3 g/dL (13.5-17.5); Mean Corpuscular Hemoglobin 26.1 pg (28.0-32.0); Mean Corpuscular Volume 80.9 fL (80.0-100.0); Nucleated Red Blood Cells % 0.2 %
[2025-02-03 03:57] LABS: Blood Urea Nitrogen 36 mg/dL (9-23); Glucose 108 mg/dL (74-106)
[2025-02-03 03:59] LABS: INR 1.26 (0.9-1.15); Partial Thromboplastin Time 36.1 SEC (24.5-34.5); Prothrombin Time 13.1 sec (9.3-11.8)
[2025-02-03] MEDS: HEPARIN DRIP/D5W 100UNITS/ML 250 ML IV SCH ×3 (04:28→20:00)
[2025-02-03 11:20] LABS: Nucleated Red Blood Cells % 0.2 %
[2025-02-03 11:22] LABS: Hematocrit 25.2 % (41.0-53.0); Hemoglobin 8.1 g/dL (13.5-17.5); Mean Corpuscular Hemoglobin 26.5 pg (28.0-32.0); Mean Corpuscular Volume 82.4 fL (80.0-100.0)
[2025-02-03 12:09] LABS: Anisocytosis Slight; Ovalocytes FEW
[2025-02-03 12:12] LABS: INR 1.3 (0.9-1.15); Partial Thromboplastin Time 42.8 SEC (24.5-34.5); Prothrombin Time 13.4 sec (9.3-11.8)
--- NOTE | 2025-02-03 12:15 | DVHPN2 ---
Progress Note - Dictate Date Seen: Feb 03, 2025 Has the PT tested + for MRSA If YES, has PT been informed?: No Medical Necessity Reason Pt with a Central, PICC or Fol: No The following are medically ne: Baxter Catheter Subjective Awake and alert vital signs Vital Sign Date Time Temp Pulse Resp B/P (MAP) Pulse Ox O2 Delivery O2 Flow Rate FiO2 02/03/25 09:00 98.1 89 18 135/93 (107) 98 98.1 02/03/25 08:00 Room Air* 0 21 Total Intake and Output 02/02/25 02/02/25 02/03/25 15:00 23:00 07:00 Intake Total 636 ml 750 ml 1620 ml Output Total 650 ml 1000 ml Balance 636 ml 100 ml 620 ml medications Current Medications Medications Dose Ordered Sig/Natan Route Start Time Stop Time Status Last Admin Dose Admin Diagnostic Test (Pha) 1 strip Q6HR 01/30/25 00:00 02/03/25 11:20 1 STRIP Insulin Human Regular Q6HR SC 01/30/25 00:00 02/02/25 06:15 2 UNITS Dextrose 50 ml UD PRN IV 01/29/25 18:15 Pantoprazole Sodium 40 mg DAILY IV 01/30/25 10:00 02/03/25 10:02 40 MG Ondansetron HCl 4 mg Q6HPRN PRN IV 01/29/25 18:15 01/31/25 03:24 4 MG Acetaminophen 650 mg Q4HP PRN PO 01/29/25 18:15 02/02/25 06:24 650 MG Aspirin 81 mg DAILY PO 01/31/25 10:00 01/31/25 11:30 81 MG Furosemide 40 mg BIDD IV 01/30/25 18:00 02/03/25 05:26 40 MG Calcium Acetate 667 mg TIDWMEALS PO 01/31/25 08:00 02/03/25 11:13 667 MG Ertapenem 0.5 gm/ Sodium Chloride 50 ml @ 100 mls/hr DAILY IV 02/01/25 10:00 02/03/25 10:02 100 MLS/HR Ferrous Sulfate 325 mg BIDWM PO 02/01/25 18:00 02/03/25 07:40 325 MG Mupirocin 1 applic BID EACHNOSTRI 02/01/25 22:00 02/06/25 21:59 02/03/25 09:57 1 APPLIC Vancomycin HCl 250 mg QID PO 02/02/25 18:00 02/03/25 11:13 250 MG Saccharomyces Boulardii 250 mg BID PO 02/02/25 22:00 02/03/25 10:02 250 MG Heparin Sodium/ Dextrose 250 ml @ 6 mls/hr Q24H IV 02/03/25 04:30 02/03/25 04:28 6 MLS/HR objective Gen: nad heent: nc/at, mmm lungs: cta anteriorly cvs: no rub abd: soft, bowel sounds audible ext: no edema skin: no rash neuro: alert and oriented laboratory and microbiology Laboratory Tests 02/03/25 10:57 02/03/25 03:10 Test 02/03/25 03:10 Range/Units Serum Glucose 108 H 74-106 mg/dL Assessment/Plan IMP: 1) Hemodynamically mediated PUSHPA + obstructive uropathy 2) CKD stage IV 3) nephrolithiasis 4) obstructive uropathy 5) history of hypertension REC: - patient with significant improvement in urine volumes, we will monitor for any signs of meaningful kidney recovery. - we will tentatively hold further dialysis treatments. Dietary Evaluation Review Comments: Nutrition Recommendation 1) Consider Renal standard + cardiac diet 2) Nephro-saida 1 tab daily 3) Monitor PO intake, lab values, weight trend, and I/O Expected Outcomes/Goals: Lab values to improve Fu 3-5 days Plan discussed with: Patient ANTONIO GOYAL MD Feb 03, 2025 12:15
--- NOTE | 2025-02-03 12:52 | CONS ---
Pharmacy Clinical Information: HEPARIN PER [facility] PROTOCOL: APTT result of 42.8 received from draw on 02/03 @1057. Increase rate 200 units per hour. New rate is 800 units per hour (8ml/hr). Orders read back and confirmed with NASEEM Gutierrez @3251. Next APTT scheduled for 1900. PHILIPPE ROY PHARMACIST Feb 03, 2025 12:52
--- NOTE | 2025-02-03 14:30 | DVHPNRES ---
Progress Note Date Seen: Feb 03, 2025 Resident Creating Document: PENG GUILLORY RESIDENT Has the PT tested + for MRSA If YES, has PT been informed?: No Medical Necessity Reason Pt with a Central, PICC or Fol: No The following are medically ne: Allred Catheter Subjective Review of Systems This is a 69-year-old male with past medical history of coronary artery disease with stent placement eight months ago, End-stage renal disease (makes urine and has had one dialysis done until now -yesterday at [facility]), came in with chief complaints of abdominal pain, vomiting and diarrhea. Patient was transferred from [facility] due to hyperkalemia and hydronephrosis with a Geo catheter and Allred's catheter in place. Prior to transfer, patient was given Dilaudid for pain. Patient states that he had a sharp generalized abdominal pain which was acute, rates it as 10/10, constant and associated with 4 episodes of watery vomiting, which was not mixed with blood, as well as 4 episodes of watery diarrhea, which did not have any blood or mucus in it. He has not been able to keep anything down and states that he feels weakness and could hardly walk since yesterday. On inquiry patient states that he took marijuana one week ago, which also cause nausea and for him to throw up. Patient denies having any food from outside, has had no sick contacts or taken any new medication recently. He does not have any shortness of breath, chest pain but complains still of nausea. Patient also reported that he had one dialysis session yesterday at [facility] and that his kidneys are not working. He is a poor historian and does not know the other comorbidities he has, he states he does not take any medication at home but that he took Plavix and aspirin for a few months and stopped a few months ago believing it didnt really help him in any way. Past medical history: Coronary artery disease with a stent placement eight months ago, end-stage renal disease on hemodialysis Past surgical history: Denies any surgery in the past Family history: Patient states both mother and father due to [place] Social history: Patient lives at his home with his friends. He smokes 4-5 cigarettes per day now but previously used to smoke one pack per day for the past 60 years. He states he quit alcohol 37 years ago and does not drink anymore. He takes marijuana occasionally and the last one was one week ago. Used to take methamphetamine a while back. Allergies: None Code status: Full code 01/30/2025: Patient was seen and examined by me today. Patient reports feeling much better than yesterday. We are doing a cardiology consult as there were T- wave changes multiple leads and troponins are up trending. cardiology on board. 01/31/2025: Patient was seen and examined by me today. Patient reports his urine is burning. [facility] today faxed patient's urine reports which shows ESBL positive. Ertapenem started. Cardiology on board, patient going to lift slab operator tomorrow. 02/01/2025: Patient was seen and examined by me today. Heparin drip continued. Cardiology on board. Nephrology on board as well and patient underwent hemodialysis yesterday and tolerated it well. 02/02/2025: Patient was seen and examined by me today. patient was taken to the lift slab operator yesterday on 02/01/25 and ranger aide reported ejection fraction as 10%, patient has left main ostium narrowing of more than 90%, LAD more than 90% narrowed as well. He has suggested Impella assisted left main coronary intervention and stent placement of the LAD. Waiting for further plan from Cardiology regarding Impella procedure, probable on Wednesday02/07/2025. Yesterday the patient also some how had his Geo catheter removed And called nurse when he started bleeding a lot, as per patient he did not remove it and he does not know how it came out. 1 packed red blood cell was transfused as he had bled over 300 mL according to the night team. Hemoglobin is stable at 9.2 today. Pressure was applied to the neck. Today he underwent tunneled catheter placement for hemodialysis. 02/03/2025: Patient was seen and examined by me today. Patient reports that he feels much better than before. He reports he passed stool once today which was normal and soft. He reports that his shortness of breath has decreased and he is not using oxygen via nasal cannula anymore. Nephrology suggest that since there is improvement in the patient's urine volumes, they will monitor for signs of meaningful kidney recovery and hold for the dialysis treatment for now. We are still awaiting Cardiology consult regarding Impella. We will continue current management for now. Objective vital signs Vital Sign Date Time Temp Pulse Resp B/P (MAP) Pulse Ox O2 Delivery O2 Flow Rate FiO2 02/03/25 13:00 98.2 92 18 118/83 (95) 97 98.2 02/03/25 08:00 Room Air* 0 21 Total Intake and Output 02/02/25 02/02/25 02/03/25 15:00 23:00 07:00 Intake Total 636 ml 750 ml 1620 ml Output Total 650 ml 1000 ml Balance 636 ml 100 ml 620 ml medications Current Medications Medications Dose Ordered Sig/Natan Route Start Time Stop Time Status Last Admin Dose Admin Diagnostic Test (Pha) 1 strip Q6HR 01/30/25 00:00 02/03/25 11:20 1 STRIP Insulin Human Regular Q6HR SC 01/30/25 00:00 02/02/25 06:15 2 UNITS Dextrose 50 ml UD PRN IV 01/29/25 18:15 Pantoprazole Sodium 40 mg DAILY IV 01/30/25 10:00 02/03/25 10:02 40 MG Ondansetron HCl 4 mg Q6HPRN PRN IV 01/29/25 18:15 01/31/25 03:24 4 MG Acetaminophen 650 mg Q4HP PRN PO 01/29/25 18:15 02/02/25 06:24 650 MG Aspirin 81 mg DAILY PO 01/31/25 10:00 01/31/25 11:30 81 MG Furosemide 40 mg BIDD IV 01/30/25 18:00 02/03/25 05:26 40 MG Calcium Acetate 667 mg TIDWMEALS PO 01/31/25 08:00 02/03/25 11:13 667 MG Ertapenem 0.5 gm/ Sodium Chloride 50 ml @ 100 mls/hr DAILY IV 02/01/25 10:00 02/03/25 10:02 100 MLS/HR Ferrous Sulfate 325 mg BIDWM PO 02/01/25 18:00 02/03/25 07:40 325 MG Mupirocin 1 applic BID EACHNOSTRI 02/01/25 22:00 02/06/25 21:59 02/03/25 09:57 1 APPLIC Vancomycin HCl 250 mg QID PO 02/02/25 18:00 02/03/25 11:13 250 MG Saccharomyces Boulardii 250 mg BID PO 02/02/25 22:00 02/03/25 10:02 250 MG Heparin Sodium/ Dextrose 250 ml @ 8 mls/hr Q24H IV 02/03/25 12:45 02/03/25 12:49 8 MLS/HR Examination Pt is lying on bed General Appearance: Alert, Oriented X3, Cooperative, mild distress HEENT: Atraumatic, Mucous membranes moist/pink. Presence of tunneled dialysis catheter intact with dressing over it on the right upper chest, no swelling soakage or erythema Respiratory: Clear to auscultation, Normal air movement, No added sounds Cardiovascular: Regular rate, Normal S1, Normal S2, No murmurs Abdominal: Active bowel sounds, Soft, no distention, no tenderness Extremities: No edema, Normal pulses, No tenderness/swelling Skin: No Significant rash, except past surgical scars , Neuro: Normal speech, sensorimotor deficits none Psych/Mental Status: Mental status NL, Mood NL Nurse was there as pad tufter during examination laboratory and microbiology Laboratory Tests 02/03/25 10:57 02/03/25 03:10 Test 02/03/25 03:10 Range/Units Serum Glucose 108 H 74-106 mg/dL Microbiology Date/Time Source Procedure Growth Status 02/01/25 06:00 Stool Clostridium difficile Toxin Assay - Final Complete 01/30/25 18:40 Nose MRSA Screen - Final Methicillin Resistant S.aureus Complete 01/29/25 09:10 Voided Urine Urine Culture - Final Complete Labs and/or images reviewed: Labs reviewed by me, Image(s) reviewed by me Problem List/Assessment/Plan Problem List/Assessment/Plan # C diff acute gastroenteritis #transaminitis -ast 2145, alt 1848, ALP 158, uptrending today -500 bolus of 0.5 mL saline once -Zofran 4 mg IV q.6 PRN -pain control with acetaminophen 650 mg p.o. q.4 PRN -IV Protonix 40 mg -stool WBC -stool bacterial culture -UDS negative -serum alcohol level normal -hepatitis panel-hep C antibody positive -COVID, flu test neg -MRSA positive -c.diff positive -vancomycin started orally February 02 2025 #B/L hydronephrosis on imaging #ESRD on hemodialysis #Anemia of chronic disease due to above #UTI, ESBL positive(reports sent from [facility]) -creatinine 4.12, BUN 63 -CT abdomen pelvis without contrast shows: Relatively mild bilateral hydronephrosis with thickened urinary bladder and Allred catheter in-situ. -UA shows color brown, protein 2+, blood 3+, leukocyte esterase 2+, urine RBC 202, urine WBC clumps present, WBC 2795 -allred catheter in place -ertapenem begun on 01/31/2025 - dialysis done on 01/31/25 - Geo catheter removed on 02/01/2025 and tunnel catheter placed on 02/02/2025 -nephrology consult on 02/03/2025 suggested -patient with significant improvement in urine volumes, we will monitor for any signs of meaningful kidney recovery; we will tentatively hold further dialysis treatments. #NSTEMI likely Type 2 rule out progressive coronary artery disease. #Rule out InStent thrombosis/restenosis. #Rule out structural heart disease. #acute systolic/diastolic CHF #Coronary artery disease status post PTCA X 1 ADRIAN (noncompliant with dual antiplatelet therapy). #Hypertension #History of coronary artery disease #Dyslipidemia -troponin I elevated 267> 297> 448> 585> 891> 814 -BNP- 2207 -EKG on 01/30: Sinus tachycardia; Incomplete right bundle branch block; Repol abnrm suggests ischemia, diffuse leads -telemetry -Aspirin 162 mg once -Atorvastatin 80 mg -Echo,pending -CXR shows: Findings may represent congestive failure or fluid overload; Internal jugular catheter in the superior vena cava above the right atrium. -cardiology consult suggested transthoracic echocardiogram to evaluate cardiac function, chest pain protocol heart score 8 points, HOSSEIN score of 4 points, heparin drip per ACS protocol, antiplatelet therapy, initiate lipid-lowering agent with improved LFTs, close cardiac surveillance -cardiology took the patient to lift slab operator on 02/01/2025 and reported that: '* The patient's left main at ostium is narrowed, more than 90%, short left main. * Left anterior descending artery in its mid region is narrowed 90%. * Circumflex and obtuse marginal artery normal. * The right coronary artery is a large dominant artery, normal. * Ejection fraction is 10%. PLAN OF ACTION: Dr. Saeed if he can do Impella assisted left main coronary intervention and a stent in the left anterior descending artery, very high risk present. Discussed with Dr. Castro. Emergency care done on 02/01/2025" - awaiting cardiology consult regarding Impella #Hyperkalemia monitor, insulin given and stable now #Hypoglycemia ( 40 on admission) -dextrose 50% syringe once -D5W 5% IV 30 mL/hour 1 bolus -Accu-Cheks #Polysubstance use disorder including marijuana/amphetamine/tobacco #Medical and adherence -counseled the patient regarding polysubstance use cessation and the importance of adherence to medical management GI prophylaxis: Protonix 40 mg IV daily Diet: Clear liquid diet Goals of care discussed with the patient: Full code status Case discussed with Dr. Nj, patient and nurse. Plan discussed with: Patient, Other (rn) Dietary Evaluation Review Comments: Nutrition Recommendation 1) Consider Renal standard + cardiac diet 2) Nephro-saida 1 tab daily 3) Monitor PO intake, lab values, weight trend, and I/O Expected Outcomes/Goals: Lab values to improve Fu 3-5 days Date of Service: Feb 03, 2025 Billing Provider: ESTEPHANIE NJ MD Common Visit Codes: [id number] INP/OBS CARE(HIGH) Addendum Addendum Addendum I was physically present for the yoo portions of the service provided to patient by THE RESIDENT. I have reviewed the documentation, discussed the case with resident and agree with the resident's documentation except as noted. Also the patient's clinical case was discussed with the patient's nurse. This medical document was created using an electronic medical record system with computerized dictation system. Although this document has been carefully reviewed, there might still be some phonetic and typographical errors. These areas are purely typographical due to imperfections of the software programs, and do not reflect any compromise in the patient's medical care. Late signature. PENG GUILLORY RESIDENT Feb 03, 2025 14:30 ESTEPHANIE NJ MD Feb 04, 2025 15:30
--- NOTE | 2025-02-03 16:55 | DVHPN2 ---
Progress Note - Dictate Date Seen: Feb 03, 2025 Has the PT tested + for MRSA If YES, has PT been informed?: No Medical Necessity Reason Pt with a Central, PICC or Fol: No The following are medically ne: Baxter Catheter Subjective Patient was seen and evaluated in follow up. No overnight events. Patient maintained on heparin drip. HGB 8.1, HCT 25.2, BUN 36, NOUGAT CUTTER MACHINE 4.23, CA 8.2. Telemetry reviewed. vital signs Vital Sign Date Time Temp Pulse Resp B/P (MAP) Pulse Ox O2 Delivery O2 Flow Rate FiO2 02/03/25 09:00 98.1 89 18 135/93 (107) 98 98.1 02/03/25 08:00 Room Air* 0 21 Total Intake and Output 02/02/25 02/02/25 02/03/25 15:00 23:00 07:00 Intake Total 636 ml 750 ml 1620 ml Output Total 650 ml 1000 ml Balance 636 ml 100 ml 620 ml medications Current Medications Medications Dose Ordered Sig/Natan Route Start Time Stop Time Status Last Admin Dose Admin Diagnostic Test (Pha) 1 strip Q6HR 01/30/25 00:00 02/03/25 11:20 1 STRIP Insulin Human Regular Q6HR SC 01/30/25 00:00 02/02/25 06:15 2 UNITS Dextrose 50 ml UD PRN IV 01/29/25 18:15 Pantoprazole Sodium 40 mg DAILY IV 01/30/25 10:00 02/03/25 10:02 40 MG Ondansetron HCl 4 mg Q6HPRN PRN IV 01/29/25 18:01/31/25 03:24 4 MG Acetaminophen 650 mg Q4HP PRN PO 01/29/25 18:15 02/02/25 06:24 650 MG Aspirin 81 mg DAILY PO 01/31/25 10:00 01/31/25 11:30 81 MG Furosemide 40 mg BIDD IV 01/30/25 18:00 02/03/25 05:26 40 MG Calcium Acetate 667 mg TIDWMEALS PO 01/31/25 08:00 02/03/25 11:13 667 MG Ertapenem 0.5 gm/ Sodium Chloride 50 ml @ 100 mls/hr DAILY IV 02/01/25 10:00 02/03/25 10:02 100 MLS/HR Ferrous Sulfate 325 mg BIDWM PO 02/01/25 18:00 02/03/25 07:40 325 MG Mupirocin 1 applic BID EACHNOSTRI 02/01/25 22:00 02/06/25 21:59 02/03/25 09:57 1 APPLIC Vancomycin HCl 250 mg QID PO 02/02/25 18:00 02/03/25 11:13 250 MG Saccharomyces Boulardii 250 mg BID PO 02/02/25 22:00 02/03/25 10:02 250 MG Heparin Sodium/ Dextrose 250 ml @ 6 mls/hr Q24H IV 02/03/25 04:30 02/03/25 04:28 6 MLS/HR objective GENERAL: Alert and oriented x 3. No acute distress. EYES: PERRL, EOMI. Anicteric. HENT: Moist mucous membranes. LUNGS: Clear to auscultation bilaterally. CARDIOVASCULAR: Regular rate and rhythm. ABDOMEN: Soft, nontender and nondistended. EXTREMITIES: No edema. NEUROLOGIC: No focal neurological deficits. SKIN: Warm, dry. laboratory and microbiology Laboratory Tests 02/03/25 10:57 02/03/25 03:10 Test 02/03/25 03:10 Range/Units Serum Glucose 108 H 74-106 mg/dL Problem List NSTEMI rule out progressive coronary artery disease. Rule out InStent thrombosis/restenosis. Rule out structural heart disease. Coronary artery disease status post PTCA X 1 ADRIAN (noncompliant with dual antiplatelet therapy). Hypertension. Dyslipidemia. Hyperkalemia. Transaminitis. End-stage renal disease now on hemodialysis. Methamphetamine use. Tobacco use. Medical noncompliance Assessment/Plan Continued all current supportive medical care. Antibiotics as ordered. GI prophylactics. Diuretics with Lasix. Heparin drip per protocol. Additional plan as per the hospital course. Dietary Evaluation Review Comments: Nutrition Recommendation 1) Consider Renal standard + cardiac diet 2) Nephro-saida 1 tab daily 3) Monitor PO intake, lab values, weight trend, and I/O Expected Outcomes/Goals: Lab values to improve Fu 3-5 days Plan discussed with: Patient MARIO CARNSE MD Feb 03, 2025 12:10
[2025-02-03 20:07] LABS: INR 1.23 (0.9-1.15); Partial Thromboplastin Time 42.0 SEC (24.5-34.5); Prothrombin Time 12.8 sec (9.3-11.8)
[2025-02-04] VITALS (8 sets, daily range): BP systolic 109–127; BP diastolic 53–81; PULSE 75–94; RESP 16–19; TEMP 97.6–98.7; O2SAT 92–99
[2025-02-04 02:55] LABS: INR 1.19 (0.9-1.15); Partial Thromboplastin Time 49.1 SEC (24.5-34.5); Prothrombin Time 12.4 sec (9.3-11.8)
[2025-02-04] MEDS: HEPARIN DRIP/D5W 100UNITS/ML 250 ML IV SCH (03:26)
[2025-02-04] MEDS: HYDROmorphone HCL 2 MG/ML VL/or syr IV PRN (10:21)
[2025-02-04 10:41] LABS: Hematocrit 26.6 % (41.0-53.0); Hemoglobin 8.4 g/dL (13.5-17.5); Mean Corpuscular Hemoglobin 26.3 pg (28.0-32.0); Mean Corpuscular Volume 82.8 fL (80.0-100.0); Nucleated Red Blood Cells % 0.1 %
[2025-02-04] MEDS ORDERED: LIDOCAINE HCL 5 % TOP OINT 35 GM TOP PRN (10:45)
[2025-02-04 10:53] LABS: Chloride 96 mmol/L (98-107); Potassium 4.6 mmol/L (3.5-5.1); Sodium 133 mmol/L (136-145)
[2025-02-04 10:54] LABS: Anion Gap 11 (5-15); Carbon Dioxide 26 mmol/L (20-31)
[2025-02-04 10:55] LABS: Calcium 8.2 mg/dL (8.7-10.4)
[2025-02-04 10:59] LABS: BUN/Creatinine Ratio 8.5 (10.0-20.0)
[2025-02-04 11:03] LABS: Blood Urea Nitrogen 47 mg/dL (9-23); Glucose 107 mg/dL (74-106)
[2025-02-04 11:13] LABS: INR 1.22 (0.9-1.15); Prothrombin Time 12.7 sec (9.3-11.8)
[2025-02-04 11:15] LABS: Partial Thromboplastin Time 78.4 SEC (24.5-34.5)
--- NOTE | 2025-02-04 16:06 | DVHPN2 ---
Progress Note - Dictate Date Seen: Feb 04, 2025 Has the PT tested + for MRSA If YES, has PT been informed?: No Medical Necessity Reason Pt with a Central, PICC or Fol: No The following are medically ne: Baxter Catheter Subjective Denies shortness of breath, chest pain today vital signs Vital Sign Date Time Temp Pulse Resp B/P (MAP) Pulse Ox O2 Delivery O2 Flow Rate FiO2 02/04/25 12:36 97.9 89 16 120/73 (89) 99 97.9 02/04/25 08:00 Room Air* 0 21 Total Intake and Output 02/03/25 02/03/25 02/04/25 15:00 23:00 07:00 Intake Total 50 ml 1750 ml 1360 ml Output Total 825 ml 2350 ml Balance 50 ml 925 ml -990 ml medications Current Medications Medications Dose Ordered Sig/Natan Route Start Time Stop Time Status Last Admin Dose Admin Diagnostic Test (Pha) 1 strip Q6HR 01/30/25 00:00 02/04/25 12:24 1 STRIP Insulin Human Regular Q6HR SC 01/30/25 00:00 02/04/25 05:28 4 UNITS Dextrose 50 ml UD PRN IV 01/29/25 18:15 Pantoprazole Sodium 40 mg DAILY IV 01/30/25 10:00 02/04/25 10:21 40 MG Ondansetron HCl 4 mg Q6HPRN PRN IV 01/29/25 18:15 01/31/25 03:24 4 MG Acetaminophen 650 mg Q4HP PRN PO 01/29/25 18:15 02/04/25 08:10 650 MG Aspirin 81 mg DAILY PO 01/31/25 10:00 01/31/25 11:30 81 MG Furosemide 40 mg BIDD IV 01/30/25 18:00 02/04/25 05:19 40 MG Calcium Acetate 667 mg TIDWMEALS PO 01/31/25 08:00 02/04/25 10:20 667 MG Ertapenem 0.5 gm/ Sodium Chloride 50 ml @ 100 mls/hr DAILY IV 02/01/25 10:00 02/04/25 10:20 100 MLS/HR Ferrous Sulfate 325 mg BIDWM PO 02/01/25 18:00 02/04/25 10:20 325 MG Mupirocin 1 applic BID EACHNOSTRI 10/16/25 22:00 02/06/25 21:59 02/04/25 08:12 1 APPLIC Vancomycin HCl 250 mg QID PO 02/02/25 18:00 02/04/25 12:15 250 MG Saccharomyces Boulardii 250 mg BID PO 02/02/25 22:00 02/04/25 10:20 250 MG Heparin Sodium/ Dextrose 250 ml @ 12 mls/hr [id number] IV 02/04/25 03:30 02/04/25 03:26 12 MLS/HR Hydromorphone HCl 0.25 mg ONCE PRN IV 02/04/25 09:45 02/04/25 10:21 0.25 MG Lidocaine HCl 1 applic Q8HP PRN TOP 02/04/25 10:45 objective Gen: nad heent: nc/at, mmm lungs: cta anteriorly cvs: no rub abd: soft, bowel sounds audible ext: no edema skin: no rash neuro: alert and oriented laboratory and microbiology Laboratory Tests 02/04/25 10:10 Test 02/04/25 10:10 Range/Units Serum Glucose 107 H 74-106 mg/dL Assessment/Plan IMP: 1) Hemodynamically mediated PUSHPA + obstructive uropathy 2) CKD stage IV 3) nephrolithiasis 4) obstructive uropathy 5) history of hypertension REC: - noted plans for repeat left heart catheterization this coming Wednesday - tentatively for dialysis WednesdayFebruary 05 Dietary Evaluation Review Comments: Nutrition Recommendation 1) Consider Renal standard + cardiac diet 2) Nephro-saida 1 tab daily 3) Monitor PO intake, lab values, weight trend, and I/O Expected Outcomes/Goals: Lab values to improve Fu 3-5 days Plan discussed with: Patient ANTONIO GOYAL MD Feb 04, 2025 16:06
--- NOTE | 2025-02-04 16:33 | DVHPNRES ---
Progress Note Date Seen: Feb 04, 2025 Resident Creating Document: ERICA MIRANDA RESIDENT Has the PT tested + for MRSA If YES, has PT been informed?: No Medical Necessity Reason Pt with a Central, PICC or Fol: No The following are medically ne: Allred Catheter Subjective Review of Systems This is a 69-year-old male with past medical history of coronary artery disease with stent placement eight months ago, End-stage renal disease (makes urine and has had one dialysis done until now -yesterday at [facility]), came in with chief complaints of abdominal pain, vomiting and diarrhea. Patient was transferred from [facility] due to hyperkalemia and hydronephrosis with a Geo catheter and Allred's catheter in place. Prior to transfer, patient was given Dilaudid for pain. Patient states that he had a sharp generalized abdominal pain which was acute, rates it as 10/10, constant and associated with 4 episodes of watery vomiting, which was not mixed with blood, as well as 4 episodes of watery diarrhea, which did not have any blood or mucus in it. He has not been able to keep anything down and states that he feels weakness and could hardly walk since yesterday. On inquiry patient states that he took marijuana one week ago, which also cause nausea and for him to throw up. Patient denies having any food from outside, has had no sick contacts or taken any new medication recently. He does not have any shortness of breath, chest pain but complains still of nausea. Patient also reported that he had one dialysis session yesterday at [facility] and that his kidneys are not working. He is a poor historian and does not know the other comorbidities he has, he states he does not take any medication at home but that he took Plavix and aspirin for a few months and stopped a few months ago believing it didnt really help him in any way. Past medical history: Coronary artery disease with a stent placement eight months ago, end-stage renal disease on hemodialysis Past surgical history: Denies any surgery in the past Family history: Patient states both mother and father due to [place] Social history: Patient lives at his home with his friends. He smokes 4-5 cigarettes per day now but previously used to smoke one pack per day for the past 60 years. He states he quit alcohol 37 years ago and does not drink anymore. He takes marijuana occasionally and the last one was one week ago. Used to take methamphetamine a while back. Allergies: None Code status: Full code 01/30/2025: Patient was seen and examined by me today. Patient reports feeling much better than yesterday. We are doing a cardiology consult as there were T- wave changes multiple leads and troponins are up trending. cardiology on board. 01/31/2025: Patient was seen and examined by me today. Patient reports his urine is burning. [facility] today faxed patient's urine reports which shows ESBL positive. Ertapenem started. Cardiology on board, patient going to [facility] [employer] [facility] tomorrow. 02/01/2025: Patient was seen and examined by me today. Heparin drip continued. Cardiology on board. Nephrology on board as well and patient underwent hemodialysis yesterday and tolerated it well. 02/02/2025: Patient was seen and examined by me today. patient was taken to the [facility] [employer] [facility] yesterday on 02/01/25 and sleeve bottom feller reported ejection fraction as 10%, patient has left main ostium narrowing of more than 90%, LAD more than 90% narrowed as well. He has suggested Impella assisted left main coronary intervention and stent placement of the LAD. Waiting for further plan from Cardiology regarding Impella procedure, probable on Wednesday02/07/2025. Yesterday the patient also some how had his Geo catheter removed And called nurse when he started bleeding a lot, as per patient he did not remove it and he does not know how it came out. 1 packed red blood cell was transfused as he had bled over 300 mL according to the night team. Hemoglobin is stable at 9.2 today. Pressure was applied to the neck. Today he underwent tunneled catheter placement for hemodialysis. 02/03/2025: Patient was seen and examined by me today. Patient reports that he feels much better than before. He reports he passed stool once today which was normal and soft. He reports that his shortness of breath has decreased and he is not using oxygen via nasal cannula anymore. Nephrology suggest that since there is improvement in the patient's urine volumes, they will monitor for signs of meaningful kidney recovery and hold for the dialysis treatment for now. We are still awaiting Cardiology consult regarding Impella. We will continue current management for now. 02/04/2025-patient was seen today at bedside, labs and chart reviewed. Patient is still having diarrhea. Patient is seen by Nephrology, recommended for possible hemodialysis tomorrow. Patient also seen by Cardiology Dr. Turner. Recommendation reviewed and appreciated. Waiting for further plan from Cardiology COMMENT regarding Impella procedure, probable on Wednesday02/07/2025. Dr. Turner did not mentioned anything regarding Impella yet. Objective vital signs Vital Sign Date Time Temp Pulse Resp B/P (MAP) Pulse Ox O2 Delivery O2 Flow Rate FiO2 02/04/25 12:36 97.9 89 16 120/73 (89) 99 97.9 02/04/25 08:00 Room Air* 0 21 Total Intake and Output 02/03/25 02/03/25 02/04/25 15:00 23:00 07:00 Intake Total 50 ml 1750 ml 1360 ml Output Total 825 ml 2350 ml Balance 50 ml 925 ml -990 ml medications Current Medications Medications Dose Ordered Sig/Natan Route Start Time Stop Time Status Last Admin Dose Admin Diagnostic Test (Pha) 1 strip Q6HR 01/30/25 00:00 02/04/25 12:24 1 STRIP Insulin Human Regular Q6HR SC 01/30/25 00:00 02/04/25 05:28 4 UNITS Dextrose 50 ml UD PRN IV 01/29/25 18:15 Pantoprazole Sodium 40 mg DAILY IV 01/30/25 10:00 02/04/25 10:21 40 MG Ondansetron HCl 4 mg Q6HPRN PRN IV 01/29/25 18:01/31/25 03:24 4 MG Acetaminophen 650 mg Q4HP PRN PO 01/29/25 18:15 02/04/25 08:10 650 MG Aspirin 81 mg DAILY PO 01/31/25 10:00 01/31/25 11:30 81 MG Furosemide 40 mg BIDD IV 01/30/25 18:00 02/04/25 05:19 40 MG Calcium Acetate 667 mg TIDWMEALS PO 01/31/25 08:00 02/04/25 10:20 667 MG Ertapenem 0.5 gm/ Sodium Chloride 50 ml @ 100 mls/hr DAILY IV 02/01/25 10:00 02/04/25 10:20 100 MLS/HR Ferrous Sulfate 325 mg BIDWM PO 02/01/25 18:00 02/04/25 10:20 325 MG Mupirocin 1 applic BID EACHNOSTRI 02/01/25 22:00 02/06/25 21:59 02/04/25 08:12 1 APPLIC Vancomycin HCl 250 mg QID PO 02/02/25 18:00 02/04/25 12:15 250 MG Saccharomyces Boulardii 250 mg BID PO 02/02/25 22:00 02/04/25 10:20 250 MG Heparin Sodium/ Dextrose 250 ml @ 12 mls/hr [id number] IV 02/04/25 03:30 02/04/25 03:26 12 MLS/HR Hydromorphone HCl 0.25 mg ONCE PRN IV 02/04/25 09:45 02/04/25 10:21 0.25 MG Lidocaine HCl 1 applic Q8HP PRN TOP 02/04/25 10:45 Examination General Appearance: Alert, Oriented X3, Cooperative, mild distress HEENT: Atraumatic, Mucous membranes moist/pink. Presence of tunneled dialysis catheter intact with dressing over it on the right upper chest, no swelling soakage or erythema Respiratory: Clear to auscultation, Normal air movement, No added sounds Cardiovascular: Regular rate, Normal S1, Normal S2, No murmurs Abdominal: Active bowel sounds, Soft, no distention, no tenderness Extremities: No edema, Normal pulses, No tenderness/swelling Skin: No Significant rash, except past surgical scars , Neuro: Normal speech, sensorimotor deficits none Psych/Mental Status: Mental status NL, Mood NL Nurse was there as commercial designer during examination laboratory and microbiology Laboratory Tests 02/04/25 10:10 Test 02/04/25 10:10 Range/Units Serum Glucose 107 H 74-106 mg/dL Microbiology Date/Time Source Procedure Growth Status 02/01/25 06:00 Stool Clostridium difficile Toxin Assay - Final Complete 01/30/25 18:40 Nose MRSA Screen - Final Methicillin Resistant S.aureus Complete 01/29/25 09:10 Voided Urine Urine Culture - Final Complete Labs and/or images reviewed: Labs reviewed by me, Image(s) reviewed by me Problem List/Assessment/Plan Problem List/Assessment/Plan Assessment and plan- # C diff acute gastroenteritis #transaminitis -ast 2145, alt 1848, ALP 158, uptrending today -stool positive for C diff -UDS negative -hepatitis panel-hep C antibody positive -COVID, flu test neg -continue vancomycin started orally February 02 2025 #B/L hydronephrosis on imaging #ESRD , history of hemodialysis #Anemia of chronic disease likely due to above #UTI, ESBL positive(reports sent from [facility]) -CT abdomen pelvis without contrast shows: Relatively mild bilateral hydronephrosis with thickened urinary bladder and Allred catheter in-situ. -UA shows color brown, protein 2+, blood 3+, leukocyte esterase 2+, urine RBC 202, urine WBC clumps present, WBC 2795 -allred catheter in place -Ertapenem begun on 01/31/2025 - dialysis done on 01/31/25 - Geo catheter removed on 02/01/2025 and tunnel catheter placed on 02/02/2025 -nephrology on board, as per Nephrology tentative dialysis on 02/05/2025 #NSTEMI likely Type 2 rule out progressive coronary artery disease. #Rule out InStent thrombosis/restenosis. #Rule out structural heart disease. #acute systolic/diastolic CHF #Coronary artery disease status post PTCA X 1 ADRIAN (noncompliant with dual antiplatelet therapy). #Hypertension #History of coronary artery disease #Dyslipidemia -troponin I elevated 267> 297> 448> 585> 891> 814 -BNP- 2207 -EKG on 01/30: Sinus tachycardia; Incomplete right bundle branch block; Repol abnrm suggests ischemia, diffuse leads -telemetry -Aspirin 162 mg once -Atorvastatin 80 mg -CXR shows: Findings may represent congestive failure or fluid overload; Internal jugular catheter in the superior vena cava above the right atrium. -cardiology consult suggested transthoracic echocardiogram to evaluate cardiac function, chest pain protocol heart score 8 points, HOSSEIN score of 4 points, heparin drip per ACS protocol, antiplatelet therapy, initiate lipid-lowering agent with improved LFTs, close cardiac surveillance -cardiology took the patient to [employer] on 02/01/2025 and reported that: '* The patient's left main at ostium is narrowed, more than 90%, short left main. * Left anterior descending artery in its mid region is narrowed 90%. * Circumflex and obtuse marginal artery normal. * The right coronary artery is a large dominant artery, normal. * Ejection fraction is 10%. PLAN OF ACTION: Dr. Saeed if he can do Impella assisted left main coronary intervention and a stent in the left anterior descending artery, very high risk present. Discussed with Dr. Castro. Emergency care done on 02/01/2025" - awaiting cardiology consult regarding Impella-patient is supposed to get Impella on 02/07/2025 #Hyperkalemia monitor, insulin given and stable now #Hypoglycemia corrected -monitor blood sugar level #Polysubstance use disorder including marijuana/amphetamine/tobacco #Medical and adherence -counseled the patient regarding polysubstance use cessation and the importance of adherence to medical management #-MRSA positive -ON MUPIROCIN GI prophylaxis: Protonix Diet: Clear liquid diet Goals of care discussed with the patient: Full code status Case discussed with Dr. Nj, patient and nurse. Plan discussed with: Patient, Other (RN) My Orders My Orders Orders - ERICA MIRANDA Procedure Category Date Status Time Hydromorphone PHA 02/04/25 In Process Injection (Dilaudid 09:45 Dietary Evaluation Review Comments: Nutrition Recommendation 1) Consider Renal standard + cardiac diet 2) Nephro-saida 1 tab daily 3) Monitor PO intake, lab values, weight trend, and I/O Expected Outcomes/Goals: Lab values to improve Fu 3-5 days Addendum Addendum Addendum I was physically present for the yoo portions of the service provided to patient by THE RESIDENT. I have reviewed the documentation, discussed the case with resident and agree with the resident's documentation except as noted. Also the patient's clinical case was discussed with the patient's nurse. This medical document was created using an electronic medical record system with computerized dictation system. Although this document has been carefully reviewed, there might still be some phonetic and typographical errors. These areas are purely typographical due to imperfections of the software programs, and do not reflect any compromise in the patient's medical care. Late signature. Date of Service: Feb 04, 2025 Billing Provider: ESTEPHANIE NJ MD Common Visit Codes: 38129-[id number] INP/OBS CARE(HIGH) ERICA MIRANDA Feb 04, 2025 16:33 ESTEPHANIE NJ MD Feb 05, 2025 12:58
[2025-02-04 18:14] LABS: INR 1.19 (0.9-1.15); Partial Thromboplastin Time 49.8 SEC (24.5-34.5); Prothrombin Time 12.4 sec (9.3-11.8)
--- NOTE | 2025-02-04 20:04 | DVHPN2 ---
Progress Note - Dictate Date Seen: Feb 04, 2025 Has the PT tested + for MRSA If YES, has PT been informed?: No Medical Necessity Reason Pt with a Central, PICC or Fol: No The following are medically ne: Baxter Catheter Subjective Patient was seen and evaluated in follow up. Patient reports feeling well today. Patient maintained on heparin drip. BUN 47, [employer]BER 5.54, [place] 8.2. Telemetry reviewed. vital signs Vital Sign Date Time Temp Pulse Resp B/P (MAP) Pulse Ox O2 Delivery O2 Flow Rate FiO2 02/04/25 12:36 97.9 89 16 120/73 (89) 99 97.9 02/04/25 08:00 Room Air* 0 21 Total Intake and Output 02/03/25 02/03/25 02/04/25 15:00 23:00 07:00 Intake Total 50 ml 1750 ml 1360 ml Output Total 825 ml 2350 ml Balance 50 ml 925 ml -990 ml medications Current Medications Medications Dose Ordered Sig/Natan Route Start Time Stop Time Status Last Admin Dose Admin Diagnostic Test (Pha) 1 strip Q6HR 01/30/25 00:00 02/04/25 12:24 1 STRIP Insulin Human Regular Q6HR SC 01/30/25 00:00 02/04/25 05:28 4 UNITS Dextrose 50 ml UD PRN IV 01/29/25 18:15 Pantoprazole Sodium 40 mg DAILY IV 01/30/25 10:00 02/04/25 10:21 40 MG Ondansetron HCl 4 mg Q6HPRN PRN IV 01/29/25 18:15 01/31/25 03:24 4 MG Acetaminophen 650 mg Q4HP PRN PO 01/29/25 18:15 02/04/25 08:10 650 MG Aspirin 81 mg DAILY PO 01/31/25 10:00 01/31/25 11:30 81 MG Furosemide 40 mg BIDD IV 01/30/25 18:00 02/04/25 05:19 40 MG Calcium Acetate 667 mg TIDWMEALS PO 01/31/25 08:00 02/04/25 10:20 667 MG Ertapenem 0.5 gm/ Sodium Chloride 50 ml @ 100 mls/hr DAILY IV 02/01/25 10:00 02/04/25 10:20 100 MLS/HR Ferrous Sulfate 325 mg BIDWM PO 02/01/25 18:00 02/04/25 10:20 325 MG Mupirocin 1 applic BID EACHNOSTRI 02/01/25 22:00 02/06/25 21:59 02/04/25 08:12 1 APPLIC Vancomycin HCl 250 mg QID PO 02/02/25 18:00 02/04/25 12:15 250 MG Saccharomyces Boulardii 250 mg BID PO 02/02/25 22:00 02/04/25 10:20 250 MG Heparin Sodium/ Dextrose 250 ml @ 12 mls/hr [id number] IV 02/04/25 03:30 02/04/25 03:26 12 MLS/HR Hydromorphone HCl 0.25 mg ONCE PRN IV 02/04/25 09:45 02/04/25 10:21 0.25 MG Lidocaine HCl 1 applic Q8HP PRN TOP 02/04/25 10:45 objective GENERAL: Alert and oriented x 3. No acute distress. EYES: PERRL, EOMI. Anicteric. HENT: Moist mucous membranes. LUNGS: Clear to auscultation bilaterally. CARDIOVASCULAR: Regular rate and rhythm. ABDOMEN: Soft, nontender and nondistended. EXTREMITIES: No edema. NEUROLOGIC: No focal neurological deficits. SKIN: Warm, dry. laboratory and microbiology Laboratory Tests 02/04/25 10:10 Test 02/04/25 10:10 Range/Units Serum Glucose 107 H 74-106 mg/dL Problem List NSTEMI rule out progressive coronary artery disease. Rule out InStent thrombosis/restenosis. Rule out structural heart disease. Coronary artery disease status post PTCA X 1 ADRIAN (noncompliant with dual antiplatelet therapy). Hypertension. Dyslipidemia. Hyperkalemia. Transaminitis. End-stage renal disease now on hemodialysis. Methamphetamine use. Tobacco use. Medical noncompliance Assessment/Plan Continued all current supportive medical care. Antibiotics as ordered. GI prophylactics. Diuretics with Lasix. Heparin drip per protocol. Dilaudid for pain management. Additional plan as per the hospital course. Dietary Evaluation Review Comments: Nutrition Recommendation 1) Consider Renal standard + cardiac diet 2) Nephro-saida 1 tab daily 3) Monitor PO intake, lab values, weight trend, and I/O Expected Outcomes/Goals: Lab values to improve Fu 3-5 days Plan discussed with: Patient MARIO CARNES MD Feb 04, 2025 13:43
[2025-02-05] VITALS (7 sets, daily range): BP systolic 115–140; BP diastolic 65–90; PULSE 81–98; RESP 17–20; TEMP 98.2–99.6; O2SAT 93–100
[2025-02-05 00:09] LABS: INR 1.2 (0.9-1.15); Partial Thromboplastin Time 65.4 SEC (24.5-34.5); Prothrombin Time 12.5 sec (9.3-11.8)
[2025-02-05 08:03] LABS: Mean Corpuscular Volume 83.1 fL (80.0-100.0)
[2025-02-05 08:05] LABS: Hematocrit 27.7 % (41.0-53.0); Hemoglobin 9.0 g/dL (13.5-17.5); Mean Corpuscular Hemoglobin 26.9 pg (28.0-32.0); Nucleated Red Blood Cells % 0.2 %
[2025-02-05 08:11] LABS: INR 1.17 (0.9-1.15); Partial Thromboplastin Time 29.8 SEC (24.5-34.5); Prothrombin Time 12.2 sec (9.3-11.8)
--- NOTE | 2025-02-05 09:25 | CONS ---
Pharmacy Clinical Information: HEPARIN DRIP, ACS PROTOCOL @0551 APTT 29.8 - 5000 UNIT BOLUS, INCREASE HEPARIN DRIP RATE TO 1300 UNITS/HR NEXT APTT DRAW SCHEDULED @1600 PER RX PROTOCOL CONFIRMED AND READ BACK WITH RN SHERWIN PANCHAL [facility] RESIDENT Feb 05, 2025 09:25
[2025-02-05] MEDS: HEPARIN DRIP/D5W 100UNITS/ML 250 ML IV SCH ×2 (09:30→18:22)
[2025-02-05] MEDS: HEPARIN SODIUM (PORCINE) 5000 UNITS/ML 1ML VIAL IV ONE (10:29)
[2025-02-05 13:37] LABS: Potassium 4.8 mmol/L (3.5-5.1)
[2025-02-05 13:38] LABS: Anion Gap 13 (5-15); Calcium 8.7 mg/dL (8.7-10.4); Carbon Dioxide 24 mmol/L (20-31); Chloride 97 mmol/L (98-107); Sodium 134 mmol/L (136-145)
[2025-02-05 13:43] LABS: BUN/Creatinine Ratio 11.8 (10.0-20.0)
[2025-02-05 13:44] LABS: Blood Urea Nitrogen 72 mg/dL (9-23); Glucose 108 mg/dL (74-106)
[2025-02-05] MEDS: IRON SUCROSE COMPLEX 110 ML IV SCH (13:53)
[2025-02-05] MEDS: EPOETIN ALFA-EPBX 4,000 UNIT/ML VIAL SC SCH (13:54)
[2025-02-05] MEDS ORDERED: ONDANSETRON HCL 4 MG/2 ML VIAL IV PRN (14:15)
[2025-02-05] MEDS: VANCOMYCIN HCL 250 MG CAP PO SCH (14:15)
--- NOTE | 2025-02-05 15:31 | DVHPNRES ---
Progress Note Date Seen: Feb 05, 2025 Resident Creating Document: CARLOS PETTY ROLO Has the PT tested + for MRSA If YES, has PT been informed?: No Medical Necessity Reason Pt with a Central, PICC or Fol: No The following are medically ne: Baxter Catheter Subjective Review of Systems Patient seen and examined at the bedside. Patient is feeling better, has no active complaint. Objective vital signs Vital Sign Date Time Temp Pulse Resp B/P (MAP) Pulse Ox O2 Delivery O2 Flow Rate FiO2 02/05/25 13:00 98.3 84 18 140/90 (107) 100 98.3 02/05/25 08:00 Room Air* 0 21 Total Intake and Output 02/04/25 02/04/25 02/05/25 15:00 23:00 07:00 Intake Total 1980 ml 800 ml Output Total 1750 ml 1950 ml Balance 230 ml -1150 ml medications Current Medications Medications Dose Ordered Sig/Natan Route Start Time Stop Time Status Last Admin Dose Admin Diagnostic Test (Pha) 1 strip Q6HR 01/30/25 00:00 02/05/25 11:05 1 STRIP Insulin Human Regular Q6HR SC 01/30/25 00:00 02/04/25 05:28 4 UNITS Dextrose 50 ml UD PRN IV 01/29/25 18:15 Ondansetron HCl 4 mg Q6HPRN PRN IV 01/29/25 18:15 01/31/25 03:24 4 MG Acetaminophen 650 mg Q4HP PRN PO 01/29/25 18:15 02/04/25 20:59 650 MG Aspirin 81 mg DAILY PO 01/31/25 10:00 02/05/25 08:31 81 MG Furosemide 40 mg BIDD IV 01/30/25 18:00 02/05/25 06:16 40 MG Calcium Acetate 667 mg TIDWMEALS PO 01/31/25 08:00 02/05/25 11:37 667 MG Ertapenem 0.5 gm/ Sodium Chloride 50 ml @ 100 mls/hr DAILY IV 02/01/25 10:00 02/05/25 10:00 100 MLS/HR Ferrous Sulfate 325 mg BIDWM PO 02/01/25 18:00 02/05/25 08:31 325 MG Mupirocin 1 applic BID EACHNOSTRI 02/01/25 22:00 02/06/25 21:59 02/05/25 10:28 1 APPLIC Saccharomyces Boulardii 250 mg BID PO 02/02/25 22:00 02/05/25 08:31 250 MG Hydromorphone HCl 0.25 mg ONCE PRN IV 02/04/25 09:45 02/04/25 10:21 0.25 MG Lidocaine HCl 1 applic Q8HP PRN TOP 02/04/25 10:45 Heparin Sodium/ Dextrose 250 ml @ 13 mls/hr [id number] IV 02/05/25 09:30 02/05/25 09:30 13 MLS/HR Epoetin Edilson-epbx 4,000 unit MWF SC 02/05/25 13:30 02/05/25 13:54 4,000 UNIT Iron Sucrose 110 ml @ 110 mls/hr DAILY@1200 IV 02/05/25 13:30 02/09/25 12:59 02/05/25 13:53 110 MLS/HR Vancomycin HCl 500 mg QID PO 02/05/25 14:15 02/05/25 14:15 500 MG Metronidazole 100 ml @ 100 mls/hr Q8HR IV 02/05/25 22:00 Ondansetron HCl 4 mg Q8HPRN PRN IV 02/05/25 14:15 Examination General Appearance: Alert, Oriented X3, Cooperative, No acute distress HEENT: Atraumatic, PERRLA, EOMI, Mucous membrane moist/pink Respiratory: Clear to auscultation, Normal air movement Cardiovascular: Regular rate, Normal S1, Normal S2, No murmurs, no chest wall tenderness Abdominal: Normal bowel sounds, Soft, No tenderness, No hepatospenomegaly, No masses Extremities: No clubbing, No cyanosis, No edema, Normal pulses, No tenderness/swelling Skin: No rashes, No breakdown, No significant lesion Neuro: Normal gait, Normal speech, Strength at 5/5 X4 ext, Normal tone, Sensation intact, Cranial nerves 3-12 NL, Reflexes 2+ Psych/Mental Status: Mental status NL, Mood NL laboratory and microbiology Laboratory Tests 02/05/25 05:51 Test 02/05/25 05:51 Range/Units Serum Glucose 108 H 74-106 mg/dL Microbiology Date/Time Source Procedure Growth Status 02/01/25 06:00 Stool Clostridium difficile Toxin Assay - Final Complete 01/30/25 18:40 Nose MRSA Screen - Final Methicillin Resistant S.aureus Complete 01/29/25 09:10 Voided Urine Urine Culture - Final Complete Labs and/or images reviewed: Labs reviewed by me, Image(s) reviewed by me Problem List/Assessment/Plan Problem List/Assessment/Plan This is a 69-year-old gentleman with past medical history of coronary artery disease (status post PCI), hypertension, HFrEF (EF 25%) CKD 4, came to the hospital due to chest pain, shortness of breath and cough. Nephrology has been called due to PUSHPA. 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 Moderate left hydronephrosis, mostly at the superior pole * Abdominopelvic CT scan 01/29 shows, Relatively mild bilateral hydronephrosis with thickened urinary bladder and Baxter catheter in-situ. * NM NM MAG3 RENAL SCAN 02/01 shows, atrophic right kidney demonstrating minimal uptake and excretion, delayed uptake and non responsiveness to diuretic administration in the left kidney suggesting functional obstruction Plan/recommendation: (Dr. Castorena) * Continue conservative management, Lasix 40 mg b.i.d., PhosLo, IV iron and Epoetin edilson * Considering imaging finding, and renal function, patient would benefit from urological intervention * Ordered nephrostomy tube * We will follow up with the patient Thank you for giving us the opportunity to take care of the patient. Please call back if you have any question/concerns. Plan discussed with: Patient, Other (RN) Dietary Evaluation Review Comments: Nutrition Recommendation 1) Consider Renal standard + cardiac diet 2) Nephro-saida 1 tab daily 3) Monitor PO intake, lab values, weight trend, and I/O Expected Outcomes/Goals: Lab values to improve Fu 3-5 days CARLOS PETTY Feb 05, 2025 15:31
--- NOTE | 2025-02-05 15:34 | DVHPNRES ---
Progress Note Date Seen: Feb 05, 2025 Resident Creating Document: TERI RAMON RESIDENT Has the PT tested + for MRSA If YES, has PT been informed?: No Medical Necessity Reason Pt with a Central, PICC or Fol: No The following are medically ne: Allred Catheter Subjective Review of Systems Leobardo Fink is a 69-year-old male with past medical history of coronary artery disease with stent placement eight months ago, End-stage renal disease (makes urine and has had one dialysis done until now -yesterday at [facility]), came in with chief complaints of abdominal pain, vomiting and diarrhea. Patient was transferred from [facility] due to hyperkalemia and hydronephrosis with a Geo catheter and Allred's catheter in place. Prior to transfer, patient was given Dilaudid for pain. Patient states that he had a sharp generalized abdominal pain which was acute, rates it as 10/10, constant and associated with 4 episodes of watery vomiting, which was not mixed with blood, as well as 4 episodes of watery diarrhea, which did not have any blood or mucus in it. He has not been able to keep anything down and states that he feels weakness and could hardly walk since yesterday. On inquiry patient states that he took marijuana one week ago, which also cause nausea and for him to throw up. Patient denies having any food from outside, has had no sick contacts or taken any new medication recently. He does not have any shortness of breath, chest pain but complains still of nausea. Patient also reported that he had one dialysis session yesterday at [facility] and that his kidneys are not working. He is a poor historian and does not know the other comorbidities he has, he states he does not take any medication at home but that he took Plavix and aspirin for a few months and stopped a few months ago believing it didnt really help him in any way. Past medical history: Coronary artery disease with a stent placement eight months ago, end-stage renal disease on hemodialysis Past surgical history: Denies any surgery in the past Family history: Patient states both mother and father due to [place] Social history: Patient lives at his home with his friends. He smokes 4-5 cigarettes per day now but previously used to smoke one pack per day for the past 60 years. He states he quit alcohol 37 years ago and does not drink anymore. He takes marijuana occasionally and the last one was one week ago. Used to take methamphetamine a while back. Allergies: None Code status: Full code Patient seen and examined at bedside. Patient is alert and oriented to time, place person and responding to all questions. Eyes: No Pain, No Vision change, No Conjunctivae inflammation, No Eyelid inflammation, No Redness ENT: No Ear pain, No Ear discharge, No Nose pain, No Nose discharge, No Nose congestion, No Mouth pain, No Mouth swelling, No Throat pain, No Throat swelling Cardiovascular: No Chest Pain, No Palpitations, No Orthopnea, No Paroxysmal No Dyspnea, No Edema, No Lt Headedness Respiratory: No Cough, No Dry, No Shortness of breath, No SOB with exertion, No Wheezing, No Hemoptysis, No Pleuritic Pain, No Sputum Gastrointestinal: No Nausea, No Vomiting, No Abdominal Pain, No Diarrhea, No Constipation, No Melena, No Hematochezia Genitourinary: No Dysuria, No Frequency, No Incontinence, No Hematuria, No Retention 01/30/2025: Patient was seen and examined by me today. Patient reports feeling much better than yesterday. We are doing a cardiology consult as there were T- wave changes multiple leads and troponins are up trending. cardiology on board. 01/31/2025: Patient was seen and examined by me today. Patient reports his urine is burning. [facility] today faxed patient's urine reports which shows ESBL positive. Ertapenem started. Cardiology on board, patient going to laborer/key man tomorrow. 02/01/2025: Patient was seen and examined by me today. Heparin drip continued. Cardiology on board. Nephrology on board as well and patient underwent hemodialysis yesterday and tolerated it well. 02/02/2025: Patient was seen and examined by me today. patient was taken to the laborer/key man yesterday on 02/01/25 and motor vehicle technician reported ejection fraction as 10%, patient has left main ostium narrowing of more than 90%, LAD more than 90% narrowed as well. He has suggested Impella assisted left main coronary intervention and stent placement of the LAD. Waiting for further plan from Cardiology regarding Impella procedure, probable on Wednesday02/07/2025. Yesterday the patient also some how had his Geo catheter removed And called nurse when he started bleeding a lot, as per patient he did not remove it and he does not know how it came out. 1 packed red blood cell was transfused as he had bled over 300 mL according to the night team. Hemoglobin is stable at 9.2 today. Pressure was applied to the neck. Today he underwent tunneled catheter placement for hemodialysis. 02/03/2025: Patient was seen and examined by me today. Patient reports that he feels much better than before. He reports he passed stool once today which was normal and soft. He reports that his shortness of breath has decreased and he is not using oxygen via nasal cannula anymore. Nephrology suggest that since there is improvement in the patient's urine volumes, they will monitor for signs of meaningful kidney recovery and hold for the dialysis treatment for now. We are still awaiting Cardiology consult regarding Impella. We will continue current management for now. 02/04/2025-patient was seen today at bedside, labs and chart reviewed. Patient is still having diarrhea. Patient is seen by Nephrology, recommended for possible hemodialysis tomorrow. Patient also seen by Cardiology Dr. Turner. Recommendation reviewed and appreciated. Waiting for further plan from Cardiology COMMENT regarding Impella procedure, probable on Wednesday02/07/2025. Dr. Turner did not mentioned anything regarding Impella yet. 02/05/25- The patient was seen at bedside today. Labs and charts were reviewed. Vancomycin dose was increased from 250mg to 500 mg qid. Flagyl iv q.8 hours was started. Nephrology saw the patient and IR consult for PCNL was placed. Pending evaluation by Cardiology. We tried to reach out to next of kin which is the patient's sister, but were unable to get in touch with her. Protonix was discontinued patient as patient is C diff positive. Objective vital signs Vital Sign Date Time Temp Pulse Resp B/P (MAP) Pulse Ox O2 Delivery O2 Flow Rate FiO2 02/05/25 13:00 98.3 84 18 140/90 (107) 100 98.3 02/05/25 08:00 Room Air* 0 21 Total Intake and Output 02/04/25 02/04/25 02/05/25 15:00 23:00 07:00 Intake Total 1980 ml 800 ml Output Total 1750 ml 1950 ml Balance 230 ml -1150 ml medications Current Medications Medications Dose Ordered Sig/Natan Route Start Time Stop Time Status Last Admin Dose Admin Diagnostic Test (Pha) 1 strip Q6HR 01/30/25 00:00 02/05/25 11:05 1 STRIP Insulin Human Regular Q6HR SC 01/30/25 00:00 02/04/25 05:28 4 UNITS Dextrose 50 ml UD PRN IV 01/29/25 18:15 Ondansetron HCl 4 mg Q6HPRN PRN IV 01/29/25 18:15 01/31/25 03:24 4 MG Acetaminophen 650 mg Q4HP PRN PO 01/29/25 18:15 02/04/25 20:59 650 MG Aspirin 81 mg DAILY PO 01/31/25 10:00 02/05/25 08:31 81 MG Furosemide 40 mg BIDD IV 01/30/25 18:00 02/05/25 06:16 40 MG Calcium Acetate 667 mg TIDWMEALS PO 01/31/25 08:00 02/05/25 11:37 667 MG Ertapenem 0.5 gm/ Sodium Chloride 50 ml @ 100 mls/hr DAILY IV 02/01/25 10:00 02/05/25 10:00 100 MLS/HR Ferrous Sulfate 325 mg BIDWM PO 02/01/25 18:00 02/05/25 08:31 325 MG Mupirocin 1 applic BID EACHNOSTRI 02/01/25 22:00 02/06/25 21:59 02/05/25 10:28 1 APPLIC Saccharomyces Boulardii 250 mg BID PO 02/02/25 22:00 02/05/25 08:31 250 MG Hydromorphone HCl 0.25 mg ONCE PRN IV 02/04/25 09:45 02/04/25 10:21 0.25 MG Lidocaine HCl 1 applic Q8HP PRN TOP 02/04/25 10:45 Heparin Sodium/ Dextrose 250 ml @ 13 mls/hr [id number] IV 02/05/25 09:30 02/05/25 09:30 13 MLS/HR Epoetin Harsh-epbx 4,000 unit MWF SC 02/05/25 13:30 02/05/25 13:54 4,000 UNIT Iron Sucrose 110 ml @ 110 mls/hr DAILY@1200 IV 02/05/25 13:30 02/09/25 12:59 02/05/25 13:53 110 MLS/HR Vancomycin HCl 500 mg QID PO 02/05/25 14:15 02/05/25 14:15 500 MG Metronidazole 100 ml @ 100 mls/hr Q8HR IV 02/05/25 22:00 Ondansetron HCl 4 mg Q8HPRN PRN IV 02/05/25 14:15 Examination General Appearance: Alert, Oriented X3, Cooperative, mild distress HEENT: Atraumatic, Mucous membranes moist/pink. sutures present at location of geo catheter on right side of neck, Presence of tunneled dialysis catheter intact with dressing over it on the right upper chest, no swelling soakage or erythema Respiratory: Clear to auscultation, Normal air movement, No added sounds Cardiovascular: Regular rate, Normal S1, Normal S2, No murmurs Abdominal: Active bowel sounds, Soft, no distention, no tenderness Extremities: No edema, Normal pulses, No tenderness/swelling Skin: No Significant rash, except past surgical scars , Neuro: Normal speech, sensorimotor deficits none Psych/Mental Status: Mental status NL, Mood NL Nurse was there as instrumentation technologist during examination laboratory and microbiology Laboratory Tests 02/05/25 05:51 Test 02/05/25 05:51 Range/Units Serum Glucose 108 H 74-106 mg/dL Microbiology Date/Time Source Procedure Growth Status 02/01/25 06:00 Stool Clostridium difficile Toxin Assay - Final Complete 01/30/25 18:40 Nose MRSA Screen - Final Methicillin Resistant S.aureus Complete 01/29/25 09:10 Voided Urine Urine Culture - Final Complete Labs and/or images reviewed: Labs reviewed by me, Image(s) reviewed by me Problem List/Assessment/Plan Problem List/Assessment/Plan # C diff acute gastroenteritis #transaminitis -ast 2145, alt 1848, ALP 158, uptrending today -stool positive for C diff -UDS negative -hepatitis panel-hep C antibody positive -COVID, flu test neg - vancomycin dose increased from 150mg to 500mg qid -patient started on flagyl 500mg q 8 hr #B/L hydronephrosis on imaging #ESRD , history of hemodialysis #Anemia of chronic disease likely due to above #UTI, ESBL positive(reports sent from [facility]) -CT abdomen pelvis without contrast shows: Relatively mild bilateral hydronephrosis with thickened urinary bladder and Allred catheter in-situ. -UA shows color brown, protein 2+, blood 3+, leukocyte esterase 2+, urine RBC 202, urine WBC clumps present, WBC 2795 -allred catheter in place -Ertapenem begun on 02/01/2025 - dialysis done on 02/02/25 - Geo catheter removed on 02/01/2025 and tunnel catheter placed on 02/02/2025 -nephrology on board, as per Nephrology IR consult placed for PCNL #NSTEMI likely Type 2 rule out progressive coronary artery disease. #Rule out InStent thrombosis/restenosis. #Rule out structural heart disease. #acute systolic/diastolic CHF #Coronary artery disease status post PTCA X 1 ADRIAN (noncompliant with dual antiplatelet therapy). #Hypertension #History of coronary artery disease #Dyslipidemia -troponin I elevated 267> 297> 448> 585> 891> 814 -BNP- 2207 -EKG on 01/30: Sinus tachycardia; Incomplete right bundle branch block; Repol abnrm suggests ischemia, diffuse leads -telemetry -Aspirin 162 mg once -Atorvastatin 80 mg -CXR shows: Findings may represent congestive failure or fluid overload; Internal jugular catheter in the superior vena cava above the right atrium. -cardiology consult suggested transthoracic echocardiogram to evaluate cardiac function, chest pain protocol heart score 8 points, HOSSEIN score of 4 points, heparin drip per ACS protocol, antiplatelet therapy, initiate lipid-lowering agent with improved LFTs, close cardiac surveillance -cardiology took the patient to laborer/key man on 02/01/2025 and reported that: '* The patient's left main at ostium is narrowed, more than 90%, short left main. * Left anterior descending artery in its mid region is narrowed 90%. * Circumflex and obtuse marginal artery normal. * The right coronary artery is a large dominant artery, normal. * Ejection fraction is 10%. PLAN OF ACTION: Dr. Saeed if he can do Impella assisted left main coronary intervention and a stent in the left anterior descending artery, very high risk present. Discussed with Dr. Castro. Emergency care done on 02/01/2025" - awaiting cardiology consult regarding Impella-patient is supposed to get Impella on 02/07/2025 #Hyperkalemia monitor, insulin given and stable now #Hypoglycemia corrected -monitor blood sugar level #Polysubstance use disorder including marijuana/amphetamine/tobacco #Medical and adherence -counseled the patient regarding polysubstance use cessation and the importance of adherence to medical management #-MRSA positive -ON MUPIROCIN GI prophylaxis: Protonix Diet: Clear liquid diet DVT prophylaxis:patient on heparin drip Goals of care: Full code, discussed for >20 minutes Plan discussed with Dr Gifford Plan discussed with: Patient Dietary Evaluation Review Comments: Nutrition Recommendation 1) Consider Renal standard + cardiac diet 2) Nephro-saida 1 tab daily 3) Monitor PO intake, lab values, weight trend, and I/O Expected Outcomes/Goals: Lab values to improve Fu 3-5 days Date of Service: Feb 05, 2025 Billing Provider: LIVIA GIFFORD MD Common Visit Codes: [id number] INP/OBS CARE(HIGH) TERI RAMON RESIDENT Feb 05, 2025 15:34 LIVIA GIFFORD MD Feb 05, 2025 18:23
[2025-02-05 16:34] LABS: INR 1.15 (0.9-1.15); Prothrombin Time 12.0 sec (9.3-11.8)
[2025-02-05 16:45] LABS: Partial Thromboplastin Time > 139.0 SEC (24.5-34.5)
--- NOTE | 2025-02-05 16:52 | CONS ---
Pharmacy Clinical Information: HEPARIN DRIP, ACS PROTOCOL @1551 APTT >139 - NO BOLUS, HOLD FOR 1 HOUR AND DECREASE RATE TO 1000 UNITS/HR NEXT APTT DRAW SCHEDULED @0000 PER RX PROTOCOL CONFIRMED AND READ BACK WITH RN SHERWIN PANCHAL [facility] RESIDENT Feb 05, 2025 16:52
--- NOTE | 2025-02-05 20:17 | DVHPN2 ---
Progress Note - Dictate Date Seen: Feb 05, 2025 Has the PT tested + for MRSA If YES, has PT been informed?: No Medical Necessity Reason Pt with a Central, PICC or Fol: No The following are medically ne: Baxter Catheter vital signs Vital Sign Date Time Temp Pulse Resp B/P (MAP) Pulse Ox O2 Delivery O2 Flow Rate FiO2 02/05/25 17:08 140/90 02/05/25 17:00 99.6 88 19 98 99.6 02/05/25 08:00 Room Air* 0 21 Total Intake and Output 02/04/25 02/04/25 02/05/25 15:00 23:00 07:00 Intake Total 1980 ml 800 ml Output Total 1750 ml 1950 ml Balance 230 ml -1150 ml medications Current Medications Medications Dose Ordered Sig/Natan Route Start Time Stop Time Status Last Admin Dose Admin Diagnostic Test (Pha) 1 strip Q6HR 01/30/25 00:00 02/05/25 18:23 1 STRIP Insulin Human Regular Q6HR SC 01/30/25 00:00 02/05/25 18:21 2 UNITS Dextrose 50 ml UD PRN IV 01/29/25 18:15 Acetaminophen 650 mg Q4HP PRN PO 01/29/25 18:15 02/04/25 20:59 650 MG Aspirin 81 mg DAILY PO 01/31/25 10:00 02/05/25 08:31 81 MG Furosemide 40 mg BIDD IV 01/30/25 18:00 02/05/25 17:08 40 MG Calcium Acetate 667 mg TIDWMEALS PO 01/31/25 08:00 02/05/25 17:08 667 MG Ertapenem 0.5 gm/ Sodium Chloride 50 ml @ 100 mls/hr DAILY IV 02/01/25 10:00 02/05/25 10:00 100 MLS/HR Mupirocin 1 applic BID EACHNOSTRI 02/01/25 22:00 02/06/25 21:59 02/05/25 10:28 1 APPLIC Saccharomyces Boulardii 250 mg BID PO 02/02/25 22:00 02/05/25 08:31 250 MG Hydromorphone HCl 0.25 mg ONCE PRN IV 02/04/25 09:45 02/04/25 10:21 0.25 MG Lidocaine HCl 1 applic Q8HP PRN TOP 02/04/25 10:45 Epoetin Harsh-epbx 4,000 unit MWF SC 02/05/25 13:30 02/05/25 13:54 4,000 UNIT Iron Sucrose 110 ml @ 110 mls/hr DAILY@1200 IV 02/05/25 13:30 02/09/25 12:59 02/05/25 13:53 110 MLS/HR Vancomycin HCl 500 mg QID PO 02/05/25 14:15 02/05/25 17:08 500 MG Metronidazole 100 ml @ 100 mls/hr Q8HR IV 02/05/25 22:00 Ondansetron HCl 4 mg Q8HPRN PRN IV 02/05/25 14:15 Heparin Sodium/ Dextrose 250 ml @ 10 mls/hr Q24H IV 02/05/25 17:45 02/05/25 18:22 10 MLS/HR objective PATIENT: AMARILIS RECINOS ACCT: [id number] UNIT: [id number] : 1955 LOC: [facility] ROOM / BED: [address] [place] [address] A AGE / SEX: 69 / M ADM STATUS: ADM IN SERVICE 1207 ORDERING PHYSICIAN: SHAYNA SMILEY MD PROCEDURE(s): KDF - NM MAG3 RENAL SCAN REASON: bilateral hydronephrosis ORDER NUMBER(s): [id number], ACCESSION NUMBER(s): [id number] Procedure: NM NM MAG3 RENAL SCAN Exam Date: 02/01/2025 09:29 AM. Clinical History: bilateral hydronephrosis Comparison Study: US BLADDER on DOS: 01/31/25, US KIDNEY on DOS: 01/30/25, US KIDNEY on DOS: 04/02/24, US KIDNEY on DOS: 05/27/23, US KIDNEY on DOS: 11/07/22 Nuclear Medicine Renal Scan with Lasix. Technique: Following the intravenous administration of 10.4 mCi of technetium 99m labeled MAG-3 , flow images were acquired in one second intervals. This was followed by functional imaging of the kidneys in the posterior projection which were obtained at 20 seconds intervals reconstructed into 2 minute frames for a total of 34 minutes. 40 mg of Lasix were given IV at the 10 minute nikhil. Flow curves and functional renogram curves were generated. Split function data were generated from the first three minutes of the study. Findings: The functional data was obtained with the renal pelvis included in the region of interest: Left: Peak time on the left is 39 minutes. Peak to 1/2 peak on the left is na minutes. Diuretic T 1/2 on the left is na minutes. Right: Peak time on the right is 25 minutes. Peak to 1/2 peak on the right is 46 minutes. Diuretic T 1/2 on the right is 46 minutes. Split function is 64 % on the left and 36 % on the right. IMPRESSION: Atrophic right kidney demonstrating minimal uptake and excretion. Delayed uptake and non responsiveness to diuretic administration in the left kidney suggesting functional obstruction. ATED BY: CHUY GAGNON MD DICTATED DATE/TIME: 02/01/25 1252 SIGNED BY: CHUY GAGNON MD SIGNED DATE/TIME: 02/01/25 125 CC: laboratory and microbiology Laboratory Tests 02/05/25 05:51 Test 02/05/25 05:51 Range/Units Serum Glucose 108 H 74-106 mg/dL Problem List ESRD Functional obstruction of left kidney with 64% function and stones Atrophic 36% right kidney Cardiac EF 10% -> nonsurgical candidate Assessment/Plan ESRD Bilateral hydronephrosis with bilateral renal stones (L>R) Abdominal pain Left PNT placement per IR service Dietary Evaluation Review Comments: Nutrition Recommendation 1) Consider Renal standard + cardiac diet 2) Nephro-saida 1 tab daily 3) Monitor PO intake, lab values, weight trend, and I/O Expected Outcomes/Goals: Lab values to improve Fu 3-5 days Plan discussed with: Patient, Other SHAYNA SMILEY MD Feb 05, 2025 20:17
--- NOTE | 2025-02-05 22:24 | DVHPN2 ---
Progress Note - Dictate Date Seen: Feb 05, 2025 Has the PT tested + for MRSA If YES, has PT been informed?: No Medical Necessity Reason Pt with a Central, PICC or Fol: No The following are medically ne: Baxter Catheter Subjective Patient was seen and evaluated in follow up. No overnight events. HGB 9.0, HCT 27.7, BUN 72, Night Shift 6.09. Stool sample for C diff was detected. Vancomycin dose was increased from 250mg to 500 mg qid. Flagyl iv q.8 hours was started. Telemetry reviewed. vital signs Vital Sign Date Time Temp Pulse Resp B/P (MAP) Pulse Ox O2 Delivery O2 Flow Rate FiO2 02/05/25 21:00 98.2 84 20 118/66 (83) 93 98.2 02/05/25 08:00 Room Air* 0 21 Total Intake and Output 02/04/25 02/04/25 02/05/25 15:00 23:00 07:00 Intake Total 1980 ml 800 ml Output Total 1750 ml 1950 ml Balance 230 ml -1150 ml medications Current Medications Medications Dose Ordered Sig/Natan Route Start Time Stop Time Status Last Admin Dose Admin Diagnostic Test (Pha) 1 strip Q6HR 01/30/25 00:00 02/05/25 18:23 1 STRIP Insulin Human Regular Q6HR SC 01/30/25 00:00 02/05/25 18:21 2 UNITS Dextrose 50 ml UD PRN IV 01/29/25 18:15 Acetaminophen 650 mg Q4HP PRN PO 01/29/25 18:15 02/04/25 20:59 650 MG Aspirin 81 mg DAILY PO 01/31/25 10:00 02/05/25 08:31 81 MG Furosemide 40 mg BIDD IV 01/30/25 18:00 02/05/25 17:08 40 MG Calcium Acetate 667 mg TIDWMEALS PO 01/31/25 08:00 02/05/25 17:08 667 MG Ertapenem 0.5 gm/ Sodium Chloride 50 ml @ 100 mls/hr DAILY IV 02/01/25 10:00 02/05/25 10:00 100 MLS/HR Mupirocin 1 applic BID EACHNOSTRI 02/01/25 22:00 02/06/25 21:59 02/05/25 21:56 1 APPLIC Saccharomyces Boulardii 250 mg BID PO 02/02/25 22:00 02/05/25 21:55 250 MG Hydromorphone HCl 0.25 mg ONCE PRN IV 02/04/25 09:45 02/04/25 10:21 0.25 MG Lidocaine HCl 1 applic Q8HP PRN TOP 02/04/25 10:45 Epoetin Harsh-epbx 4,000 unit MWF SC 02/05/25 13:30 02/05/25 13:54 4,000 UNIT Iron Sucrose 110 ml @ 110 mls/hr DAILY@1200 IV 02/05/25 13:30 02/09/25 12:59 02/05/25 13:53 110 MLS/HR Vancomycin HCl 500 mg QID PO 02/05/25 14:15 02/05/25 21:54 500 MG Metronidazole 100 ml @ 100 mls/hr Q8HR IV 02/05/25 22:00 02/05/25 21:55 100 MLS/HR Ondansetron HCl 4 mg Q8HPRN PRN IV 02/05/25 14:15 Heparin Sodium/ Dextrose 250 ml @ 10 mls/hr Q24H IV 02/05/25 17:45 02/05/25 18:22 10 MLS/HR objective GENERAL: Alert and oriented x 3. No acute distress. EYES: PERRL, EOMI. Anicteric. HENT: Moist mucous membranes. LUNGS: Clear to auscultation bilaterally. CARDIOVASCULAR: Regular rate and rhythm. ABDOMEN: Soft, nontender and nondistended. EXTREMITIES: No edema. NEUROLOGIC: No focal neurological deficits. SKIN: Warm, dry. laboratory and microbiology Laboratory Tests 02/05/25 05:51 Test 02/05/25 05:51 Range/Units Serum Glucose 108 H 74-106 mg/dL Problem List NSTEMI rule out progressive coronary artery disease. Rule out InStent thrombosis/restenosis. Rule out structural heart disease. Coronary artery disease status post PTCA X 1 ADRIAN (noncompliant with dual antiplatelet therapy). Hypertension. Dyslipidemia. Hyperkalemia. Transaminitis. End-stage renal disease now on hemodialysis. Methamphetamine use. Tobacco use. Medical noncompliance Assessment/Plan Continued all current supportive medical care. Antibiotics as ordered. GI prophylactics. Diuretics with Lasix. Heparin drip per protocol. Dilaudid for pain management. Additional plan as per the hospital course. Dietary Evaluation Review Comments: Nutrition Recommendation 1) Consider Renal standard + cardiac diet 2) Nephro-saida 1 tab daily 3) Monitor PO intake, lab values, weight trend, and I/O Expected Outcomes/Goals: Lab values to improve Fu 3-5 days Plan discussed with: Patient MARIO CARNES MD Feb 05, 2025 22:24
[2025-02-06] VITALS (13 sets, daily range): BP systolic 96–118; BP diastolic 63–86; PULSE 79–130; RESP 12–20; TEMP 97.3–98.3; O2SAT 97–100
[2025-02-06 01:17] LABS: INR 1.12 (0.9-1.15); Prothrombin Time 11.7 sec (9.3-11.8)
[2025-02-06 01:19] LABS: Partial Thromboplastin Time 95.4 SEC (24.5-34.5)
[2025-02-06] MEDS: HEPARIN DRIP/D5W 100UNITS/ML 250 ML IV SCH (02:28)
--- NOTE | 2025-02-06 08:36 | DVHPN2 ---
Progress Note Date Seen: Feb 06, 2025 Resident Creating Document: CARLOS PETTY ROLO Has the PT tested + for MRSA If YES, has PT been informed?: No Medical Necessity Reason Pt with a Central, PICC or Fol: No The following are medically ne: Baxter Catheter Subjective Review of Systems Patient seen and examined at the bedside. Patient is feeling better, has no active complaint. Objective vital signs Vital Sign Date Time Temp Pulse Resp B/P (MAP) Pulse Ox O2 Delivery O2 Flow Rate FiO2 02/06/25 08:17 97.8 79 19 96/71 (79) 97 97.8 02/05/25 20:00 Room Air* 0 21 Total Intake and Output 02/05/25 02/05/25 02/06/25 15:00 23:00 07:00 Intake Total 210 ml 1800 ml 475 ml Output Total 2500 ml 800 ml 2625 ml Balance -2290 ml 1000 ml -2150 ml medications Current Medications Medications Dose Ordered Sig/Natan Route Start Time Stop Time Status Last Admin Dose Admin Diagnostic Test (Pha) 1 strip Q6HR 01/30/25 00:00 02/06/25 05:25 1 STRIP Insulin Human Regular Q6HR SC 01/30/25 00:00 02/05/25 18:21 2 UNITS Dextrose 50 ml UD PRN IV 01/29/25 18:15 Acetaminophen 650 mg Q4HP PRN PO 01/29/25 18:15 02/06/25 01:06 650 MG Aspirin 81 mg DAILY PO 01/31/25 10:00 02/05/25 08:31 81 MG Furosemide 40 mg BIDD IV 01/30/25 18:00 02/05/25 17:08 40 MG Calcium Acetate 667 mg TIDWMEALS PO 01/31/25 08:00 02/06/25 08:24 667 MG Ertapenem 0.5 gm/ Sodium Chloride 50 ml @ 100 mls/hr DAILY IV 02/01/25 10:00 02/05/25 10:00 100 MLS/HR Mupirocin 1 applic BID EACHNOSTRI 02/01/25 22:00 02/06/25 21:59 02/05/25 21:56 1 APPLIC Saccharomyces Boulardii 250 mg BID PO 02/02/25 22:00 02/05/25 21:55 250 MG Hydromorphone HCl 0.25 mg ONCE PRN IV 02/04/25 09:45 02/04/25 10:21 0.25 MG Lidocaine HCl 1 applic Q8HP PRN TOP 02/04/25 10:45 Epoetin Edilson-epbx 4,000 unit MWF [place] 02/05/25 13:30 02/05/25 13:54 4,000 UNIT Iron Sucrose 110 ml @ 110 mls/hr DAILY@1200 IV 02/05/25 13:30 02/09/25 12:59 02/05/25 13:53 110 MLS/HR Vancomycin HCl 500 mg QID PO 02/05/25 14:15 02/06/25 05:24 500 MG Metronidazole 100 ml @ 100 mls/hr Q8HR IV 02/05/25 22:00 02/06/25 05:24 100 MLS/HR Ondansetron HCl 4 mg Q8HPRN PRN IV 02/05/25 14:15 Heparin Sodium/ Dextrose 250 ml @ 7 mls/hr Q24H IV 02/06/25 02:30 02/06/25 02:28 7 MLS/HR Examination General Appearance: Alert, Oriented X3, Cooperative, No acute distress HEENT: Atraumatic, PERRLA, EOMI, Mucous membrane moist/pink Respiratory: Clear to auscultation, Normal air movement Cardiovascular: Regular rate, Normal S1, Normal S2, No murmurs, no chest wall tenderness Abdominal: Normal bowel sounds, Soft, No tenderness, No hepatospenomegaly, No masses Extremities: No clubbing, No cyanosis, No edema, Normal pulses, No tenderness/swelling Skin: No rashes, No breakdown, No significant lesion Neuro: Normal gait, Normal speech, Strength at 5/5 X4 ext, Normal tone, Sensation intact, Cranial nerves 3-12 NL, Reflexes 2+ Psych/Mental Status: Mental status NL, Mood NL laboratory and microbiology Laboratory Tests 02/05/25 05:51 Test 02/05/25 05:51 Range/Units Serum Glucose 108 H 74-106 mg/dL Microbiology Date/Time Source Procedure Growth Status 02/01/25 06:00 Stool Clostridium difficile Toxin Assay - Final Complete 01/30/25 18:40 Nose MRSA Screen - Final Methicillin Resistant S.aureus Complete 01/29/25 09:10 Voided Urine Urine Culture - Final Complete Problem List/Assessment/Plan Problem List/Assessment/Plan This is a 69-year-old gentleman with past medical history of coronary artery disease (status post PCI), hypertension, HFrEF (EF 25%) CKD 4, came to the hospital due to chest pain, shortness of breath and cough. Nephrology has been called due to PUSHPA. 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 Moderate left hydronephrosis, mostly at the superior pole * Abdominopelvic CT scan 01/29 shows, Relatively mild bilateral hydronephrosis with thickened urinary bladder and Baxter catheter in-situ. * NM NM MAG3 RENAL SCAN 02/01 shows, atrophic right kidney demonstrating minimal uptake and excretion, delayed uptake and non responsiveness to diuretic administration in the left kidney suggesting functional obstruction Plan/recommendation: (Dr. Castorena) * Continue conservative management, Lasix 40 mg b.i.d., PhosLo, IV iron and Epoetin edilson * Considering imaging finding, and renal function, patient would benefit from urological intervention * Ordered nephrostomy tube * We will follow up with the patient Thank you for giving us the opportunity to take care of the patient. Please call back if you have any question/concerns. Plan discussed with: Patient, Other (RN) My Orders My Orders Orders - CARLOS PETTY Procedure Category Date Status Time Parathyroid Hormone LAB 02/06/25 Logged Intact 08:30 Dietary Evaluation Review Comments: Nutrition Recommendation 1) Consider Renal standard + cardiac diet 2) Nephro-saida 1 tab daily 3) Monitor PO intake, lab values, weight trend, and I/O Expected Outcomes/Goals: Lab values to improve Fu 3-5 days CARLOS PETTY Feb 06, 2025 08:36
[2025-02-06 09:02] LABS: Hemoglobin 10.0 g/dL (13.5-17.5); Nucleated Red Blood Cells % 0.1 %
--- NOTE | 2025-02-06 09:13 | DVH ---
US KIDNEY HISTORY: EVALUATION FOR POSSIBLE HYDRONEPHROSIS/NEPHROSTOMY TUBE COMPARISON: NM NM MAG3 RENAL SCAN on DOS: 02/01/25, US BLADDER on DOS: 01/31/25, US KIDNEY on DOS: TECHNIQUE: Transverse and longitudinal grayscale and color doppler images were obtained of the kidney s and bladder. FINDINGS: Right kidney: Size: 7.3 cm Cortical thickness: Normal Echogenicity: Normal Stones: Multiple stones measures up to 8 mm Masses: None Hydronephrosis: None Ureters: Not well visualized. Other: None Left kidney: Size: 10.9 cm Cortical thickness: Normal Echogenicity: Normal Stones: Multiple stones measures up to 1.6 cm Masses: None Hydronephrosis: Yes Ureters: Not well visualized. Other: None Bladder: Decompressed with a Baxter. Other: None. IMPRESSION: Moderate left hydronephrosis with multiple bilateral kidney stones better seen on prior CT.
[2025-02-06 09:21] LABS: Hematocrit 32.4 % (41.0-53.0); Mean Corpuscular Hemoglobin 26.5 pg (28.0-32.0); Mean Corpuscular Volume 85.7 fL (80.0-100.0)
[2025-02-06 09:29] LABS: INR 1.11 (0.9-1.15); Partial Thromboplastin Time 46.8 SEC (24.5-34.5); Prothrombin Time 11.6 sec (9.3-11.8)
[2025-02-06 10:11] LABS: Potassium 4.5 mmol/L (3.5-5.1)
[2025-02-06 10:12] LABS: Anion Gap 13 (5-15); Calcium 8.8 mg/dL (8.7-10.4)
[2025-02-06 10:17] LABS: BUN/Creatinine Ratio 11.7 (10.0-20.0); Glucose 84 mg/dL (74-106)
[2025-02-06 10:18] LABS: Blood Urea Nitrogen 74 mg/dL (9-23); Carbon Dioxide 20 mmol/L (20-31); Chloride 97 mmol/L (98-107); Sodium 130 mmol/L (136-145)
[2025-02-06] MEDS: IODIXANOL 320MG/ML 100ML BTL IV ONE (12:01)
[2025-02-06] MEDS: MIDAZOLAM HCL 2MG/2ML 2ml VIAL (1mg/ml) ONE (12:27)
[2025-02-06] MEDS: LIDOCAINE 2%HCL (LOCAL ANESTH.) INJ 20ML MDV ONE (12:27)
[2025-02-06] MEDS: fentaNYL CITRATE 100 MCG/2 ML VL ONE (12:27)
--- NOTE | 2025-02-06 13:33 | DVH ---
XY PERCUTANEOUS NEPHROSTOMY, US US GUIDANCE FOR NEEDLE PLACEME, HISTORY: LEFT NEPH TUBE PLACEMENT PROCEDURE: Informed consent was obtained. The patient was placed on the fluoroscopic table in a prone position and IV sedation administered. The left flank was prepped with chlorhexidine which was allow ed to dry and draped in the usual sterile fashion. Time out was performed. and the soft tissues infil trated with 1% lidocaine local anesthetic. Utilizing ultrasound guidance, a 21 gauge Chiba needle was advanced from a posterolateral approach into an lower pole calyx, and a small amount of contrast was injected under fluoroscopy to confirm positioning. Over a mandril wire, exchange was made to a non-v ascular access set, through which was advanced an 0.035 wire. Following serial dilation, an 8.5 Frenc h multipurpose nephrostomy catheter was placed with tip within the renal pelvis/adjacent calyx. Posi tion was confirmed with antegrade nephrostogram. The catheter was secured in place and connected to g ravity drainage. A sterile dressing was applied. No immediate complication was identified. DAP 29 mGy FLUOROSCOPY TIME: 5.0 minutes. CONTRAST USED: 20 mL . SEDATION: Dr. Chiara Mccartney was personally responsible for the administration of moderate sedation during the procedure performed, including the use of an independent trained observer who had no other duties during the procedure. The drugs utilized were IV fentanyl and versed (see nursing log for details). The total time of supervision by the attending physician was approximately 30 minutes. FINDINGS: Dilated left renal collecting system involving the calyces/renal pelvis. New 8.5 tongan ne phrostomy tube via a posterior lower pole calyceal access, with loop in the renal pelvis/adjacent holley yx. A proximal ureteral stricture is noted. IMPRESSION: Left hydronephrosis due to stricture of the renal pelvis and proximal ureter, status post placement of 8.5 tongan left percutaneous nephrostomy catheter. PLAN: Recommend ureteral stent placement/kidney stone removal.
--- NOTE | 2025-02-06 13:33 | DVH ---
XY PERCUTANEOUS NEPHROSTOMY, US US GUIDANCE FOR NEEDLE PLACEME, HISTORY: LEFT NEPH TUBE PLACEMENT PROCEDURE: Informed consent was obtained. The patient was placed on the fluoroscopic table in a prone position and IV sedation administered. The left flank was prepped with chlorhexidine which was allow ed to dry and draped in the usual sterile fashion. Time out was performed. and the soft tissues infil trated with 1% lidocaine local anesthetic. Utilizing ultrasound guidance, a 21 gauge Chiba needle was advanced from a posterolateral approach into an lower pole calyx, and a small amount of contrast was injected under fluoroscopy to confirm positioning. Over a mandril wire, exchange was made to a non-v ascular access set, through which was advanced an 0.035 wire. Following serial dilation, an 8.5 Frenc h multipurpose nephrostomy catheter was placed with tip within the renal pelvis/adjacent calyx. Posi tion was confirmed with antegrade nephrostogram. The catheter was secured in place and connected to g ravity drainage. A sterile dressing was applied. No immediate complication was identified. DAP 29 mGy FLUOROSCOPY TIME: 5.0 minutes. CONTRAST USED: 20 mL . SEDATION: Dr. Chiara Mccartney was personally responsible for the administration of moderate sedation during the procedure performed, including the use of an independent trained observer who had no other duties during the procedure. The drugs utilized were IV fentanyl and versed (see nursing log for details). The total time of supervision by the attending physician was approximately 30 minutes. FINDINGS: Dilated left renal collecting system involving the calyces/renal pelvis. New 8.5 thai ne phrostomy tube via a posterior lower pole calyceal access, with loop in the renal pelvis/adjacent holley yx. A proximal ureteral stricture is noted. IMPRESSION: Left hydronephrosis due to stricture of the renal pelvis and proximal ureter, status post placement of 8.5 thai left percutaneous nephrostomy catheter. PLAN: Recommend ureteral stent placement/kidney stone removal.
--- NOTE | 2025-02-06 18:19 | DVHPNRES ---
Progress Note Date Seen: Feb 06, 2025 Resident Creating Document: TERI RAMON RESIDENT Has the PT tested + for MRSA If YES, has PT been informed?: No Medical Necessity Reason Pt with a Central, PICC or Fol: No The following are medically ne: Allred Catheter Subjective Review of Systems Leobardo Fink is a 69-year-old male with past medical history of coronary artery disease with stent placement eight months ago, End-stage renal disease (makes urine and has had one dialysis done until now -yesterday at [facility]), came in with chief complaints of abdominal pain, vomiting and diarrhea. Patient was transferred from [facility] due to hyperkalemia and hydronephrosis with a Geo catheter and Allred's catheter in place. Prior to transfer, patient was given Dilaudid for pain. Patient states that he had a sharp generalized abdominal pain which was acute, rates it as 10/10, constant and associated with 4 episodes of watery vomiting, which was not mixed with blood, as well as 4 episodes of watery diarrhea, which did not have any blood or mucus in it. He has not been able to keep anything down and states that he feels weakness and could hardly walk since yesterday. On inquiry patient states that he took marijuana one week ago, which also cause nausea and for him to throw up. Patient denies having any food from outside, has had no sick contacts or taken any new medication recently. He does not have any shortness of breath, chest pain but complains still of nausea. Patient also reported that he had one dialysis session yesterday at [facility] and that his kidneys are not working. He is a poor historian and does not know the other comorbidities he has, he states he does not take any medication at home but that he took Plavix and aspirin for a few months and stopped a few months ago believing it didnt really help him in any way. Past medical history: Coronary artery disease with a stent placement eight months ago, end-stage renal disease on hemodialysis Past surgical history: Denies any surgery in the past Family history: Patient states both mother and father due to [place] Social history: Patient lives at his home with his friends. He smokes 4-5 cigarettes per day now but previously used to smoke one pack per day for the past 60 years. He states he quit alcohol 37 years ago and does not drink anymore. He takes marijuana occasionally and the last one was one week ago. Used to take methamphetamine a while back. Allergies: None Code status: Full code Patient seen and examined at bedside. Patient is alert and oriented to time, place person and responding to all questions. Eyes: No Pain, No Vision change, No Conjunctivae inflammation, No Eyelid inflammation, No Redness ENT: No Ear pain, No Ear discharge, No Nose pain, No Nose discharge, No Nose congestion, No Mouth pain, No Mouth swelling, No Throat pain, No Throat swelling Cardiovascular: No Chest Pain, No Palpitations, No Orthopnea, No Paroxysmal No Dyspnea, No Edema, No Lt Headedness Respiratory: No Cough, No Dry, No Shortness of breath, No SOB with exertion, No Wheezing, No Hemoptysis, No Pleuritic Pain, No Sputum Gastrointestinal: No Nausea, No Vomiting, No Abdominal Pain, No Diarrhea, No Constipation, No Melena, No Hematochezia Genitourinary: No Dysuria, No Frequency, No Incontinence, No Hematuria, No Retention 01/30/2025: Patient was seen and examined by me today. Patient reports feeling much better than yesterday. We are doing a cardiology consult as there were T- wave changes multiple leads and troponins are up trending. cardiology on board. 01/31/2025: Patient was seen and examined by me today. Patient reports his urine is burning. [facility] today faxed patient's urine reports which shows ESBL positive. Ertapenem started. Cardiology on board, patient going to cathodic protection technician tomorrow. 02/01/2025: Patient was seen and examined by me today. Heparin drip continued. Cardiology on board. Nephrology on board as well and patient underwent hemodialysis yesterday and tolerated it well. 02/02/2025: Patient was seen and examined by me today. patient was taken to the cathodic protection technician yesterday on 02/01/25 and digital marketing associate reported ejection fraction as 10%, patient has left main ostium narrowing of more than 90%, LAD more than 90% narrowed as well. He has suggested Impella assisted left main coronary intervention and stent placement of the LAD. Waiting for further plan from Cardiology regarding Impella procedure, probable on Wednesday02/07/2025. Yesterday the patient also some how had his Geo catheter removed And called nurse when he started bleeding a lot, as per patient he did not remove it and he does not know how it came out. 1 packed red blood cell was transfused as he had bled over 300 mL according to the night team. Hemoglobin is stable at 9.2 today. Pressure was applied to the neck. Today he underwent tunneled catheter placement for hemodialysis. 02/03/2025: Patient was seen and examined by me today. Patient reports that he feels much better than before. He reports he passed stool once today which was normal and soft. He reports that his shortness of breath has decreased and he is not using oxygen via nasal cannula anymore. Nephrology suggest that since there is improvement in the patient's urine volumes, they will monitor for signs of meaningful kidney recovery and hold for the dialysis treatment for now. We are still awaiting Cardiology consult regarding Impella. We will continue current management for now. 02/04/2025-patient was seen today at bedside, labs and chart reviewed. Patient is still having diarrhea. Patient is seen by Nephrology, recommended for possible hemodialysis tomorrow. Patient also seen by Cardiology Dr. Turner. Recommendation reviewed and appreciated. Waiting for further plan from Cardiology COMMENT regarding Impella procedure, probable on Wednesday02/07/2025. Dr. Turner did not mentioned anything regarding Impella yet. 02/05/25- The patient was seen at bedside today. Labs and charts were reviewed. Vancomycin dose was increased from 250mg to 500 mg qid. Flagyl iv q.8 hours was started. Nephrology saw the patient and IR consult for PCNL was placed. Pending evaluation by Cardiology. We tried to reach out to next of kin which is the patient's sister, but were unable to get in touch with her. Protonix was discontinued patient as patient is C diff positive. 02/06/25- the patient was seen at bedside today. Urology saw the patient yesterday and recommended placement of left nephrostomy tube. Left flank nephrostomy tube was placed, with drainage of moderate amount of clear serosanguineous urine noted in the drainage bag. Cardiology was consulted regarding Impella assisted PCI, which is scheduled for tomorrow with . Objective vital signs Vital Sign Date Time Temp Pulse Resp B/P (MAP) Pulse Ox O2 Delivery O2 Flow Rate FiO2 02/06/25 18:08 103/77 02/06/25 16:43 98.2 113 19 99 98.2 02/06/25 08:20 Room Air* 0 21 Total Intake and Output 02/05/25 02/05/25 02/06/25 15:00 23:00 07:00 Intake Total 210 ml 1800 ml 475 ml Output Total 2500 ml 800 ml 2625 ml Balance -2290 ml 1000 ml -2150 ml medications Current Medications Medications Dose Ordered Sig/Natan Route Start Time Stop Time Status Last Admin Dose Admin Diagnostic Test (Pha) 1 strip Q6HR 01/30/25 00:00 02/06/25 05:25 1 STRIP Insulin Human Regular Q6HR SC 01/30/25 00:00 02/05/25 18:21 2 UNITS Dextrose 50 ml UD PRN IV 01/29/25 18:15 Acetaminophen 650 mg Q4HP PRN PO 01/29/25 18:15 02/06/25 01:06 650 MG Aspirin 81 mg DAILY PO 01/31/25 10:00 02/05/25 08:31 81 MG Furosemide 40 mg BIDD IV 01/30/25 18:00 02/06/25 18:08 40 MG Calcium Acetate 667 mg TIDWMEALS PO 01/31/25 08:00 02/06/25 18:00 667 MG Ertapenem 0.5 gm/ Sodium Chloride 50 ml @ 100 mls/hr DAILY IV 02/01/25 10:00 02/06/25 11:21 100 MLS/HR Mupirocin 1 applic BID EACHNOSTRI 02/01/25 22:00 02/06/25 21:59 02/06/25 12:02 1 APPLIC Saccharomyces Boulardii 250 mg BID PO 02/02/25 22:00 02/06/25 11:22 250 MG Hydromorphone HCl 0.25 mg ONCE PRN IV 02/04/25 09:45 02/04/25 10:21 0.25 MG Lidocaine HCl 1 applic Q8HP PRN TOP 02/04/25 10:45 Epoetin Harsh-epbx 4,000 unit MWF SC 02/05/25 13:30 02/05/25 13:54 4,000 UNIT Iron Sucrose 110 ml @ 110 mls/hr DAILY@1200 IV 02/05/25 13:30 02/09/25 12:59 02/05/25 13:53 110 MLS/HR Vancomycin HCl 500 mg QID PO 02/05/25 14:15 02/06/25 18:01 500 MG Metronidazole 100 ml @ 100 mls/hr Q8HR IV 02/05/25 22:00 02/06/25 15:30 100 MLS/HR Ondansetron HCl 4 mg Q8HPRN PRN IV 02/05/25 14:15 Heparin Sodium/ Dextrose 250 ml @ 7 mls/hr Q24H IV 02/06/25 02:30 02/06/25 02:28 7 MLS/HR Examination General Appearance: Alert, Oriented X3, Cooperative, mild distress. Left nephrostomy tube and attached bag intact with dressing, drainage of moderate amount of clear serosanguineous urine in the drainage bag. HEENT: Atraumatic, Mucous membranes moist/pink. sutures present at location of geo catheter on right side of neck, Presence of tunneled dialysis catheter intact with dressing over it on the right upper chest, no swelling soakage or erythema Respiratory: Clear to auscultation, Normal air movement, No added sounds Cardiovascular: Regular rate, Normal S1, Normal S2, No murmurs Abdominal: Active bowel sounds, Soft, no distention, no tenderness Extremities: No edema, Normal pulses, No tenderness/swelling Skin: No Significant rash, except past surgical scars , Neuro: Normal speech, sensorimotor deficits none Psych/Mental Status: Mental status NL, Mood NL Nurse was there as automotive technology instructor during examination laboratory and microbiology Laboratory Tests 02/06/25 08:40 Test 02/06/25 08:40 Range/Units Serum Glucose 84 74-106 mg/dL Microbiology Date/Time Source Procedure Growth Status 02/01/25 06:00 Stool Clostridium difficile Toxin Assay - Final Complete 01/30/25 18:40 Nose MRSA Screen - Final Methicillin Resistant S.aureus Complete 01/29/25 09:10 Voided Urine Urine Culture - Final Complete Labs and/or images reviewed: Labs reviewed by me, Image(s) reviewed by me Problem List/Assessment/Plan Problem List/Assessment/Plan # C diff acute gastroenteritis #transaminitis -ast 2145, alt 1848, ALP 158 -stool positive for C diff -UDS negative -hepatitis panel-hep C antibody positive -COVID, flu test neg - vancomycin dose increased from 150mg to 500mg qid (02/05/25) -patient started on flagyl 500mg q 8 hr (02/05/25) #Left hydronephrosis on imaging #ESRD , history of hemodialysis #Anemia of chronic disease likely due to above #UTI, ESBL positive(reports sent from [facility]) Secondary hyperparathyroidism Left hydronephrosis due to stricture of the renal pelvis and proximal ureter, status post placement of 8.5 german left percutaneous nephrostomy catheter. -CT abdomen pelvis without contrast shows: Relatively mild bilateral hydronephrosis with thickened urinary bladder and Allred catheter in-situ. -UA shows color brown, protein 2+, blood 3+, leukocyte esterase 2+, urine RBC 202, urine WBC clumps present, WBC 2795 -allred catheter in place -Ertapenem begun on 02/01/2025 - dialysis done on 02/02/25 - Geo catheter removed on 02/01/2025 and tunnel catheter placed on 02/02/2025 -nephrology on board, as per Nephrology IR consult placed for PCNL #NSTEMI likely Type 2 rule out progressive coronary artery disease. #Rule out InStent thrombosis/restenosis. #Rule out structural heart disease. #acute systolic/diastolic CHF #Coronary artery disease status post PTCA X 1 ADRIAN (noncompliant with dual antiplatelet therapy). #Hypertension #History of coronary artery disease #Dyslipidemia -troponin I elevated 267> 297> 448> 585> 891> 814 -BNP- 2207 -EKG on 01/30: Sinus tachycardia; Incomplete right bundle branch block; Repol abnrm suggests ischemia, diffuse leads -telemetry -Aspirin 162 mg once -Atorvastatin 80 mg -CXR shows: Findings may represent congestive failure or fluid overload; Internal jugular catheter in the superior vena cava above the right atrium. -cardiology consult suggested transthoracic echocardiogram to evaluate cardiac function, chest pain protocol heart score 8 points, HOSSEIN score of 4 points, heparin drip per ACS protocol, antiplatelet therapy, initiate lipid-lowering agent with improved LFTs, close cardiac surveillance -cardiology took the patient to cathodic protection technician on 02/01/2025 and reported that: '* The patient's left main at ostium is narrowed, more than 90%, short left main. * Left anterior descending artery in its mid region is narrowed 90%. * Circumflex and obtuse marginal artery normal. * The right coronary artery is a large dominant artery, normal. * Ejection fraction is 10%. PLAN OF ACTION: Dr. Saeed if he can do Impella assisted left main coronary intervention and a stent in the left anterior descending artery, very high risk present. Discussed with Dr. Castro. Emergency care done on 02/01/2025" - awaiting cardiology consult regarding Impella-patient is supposed to get Impella on 02/07/2025 #Hyperkalemia monitor, insulin given and stable now #Hypoglycemia corrected -monitor blood sugar level #Polysubstance use disorder including marijuana/amphetamine/tobacco #Medical and adherence -counseled the patient regarding polysubstance use cessation and the importance of adherence to medical management #-MRSA positive -ON MUPIROCIN GI prophylaxis: Protonix Diet: Clear liquid diet DVT prophylaxis:patient on heparin drip Goals of care: Full code, discussed for >20 minutes Plan discussed with Dr Gifford Plan discussed with: Patient Dietary Evaluation Review Comments: Nutrition Recommendation 1) Consider Renal standard + cardiac diet 2) Nephro-saida 1 tab daily 3) Monitor PO intake, lab values, weight trend, and I/O Expected Outcomes/Goals: Lab values to improve Fu 3-5 days Date of Service: Feb 06, 2025 Billing Provider: LIVIA GIFFORD MD Common Visit Codes: [id number] INP/OBS CARE(HIGH) Date of Service: Feb 06, 2025 Billing Provider: LIVIA GIFFORD MD Common Visit Codes: [id number] INP/OBS CARE(HIGH) TERI RAMON RESIDENT Feb 06, 2025 18:19
--- NOTE | 2025-02-06 19:55 | DVHPN2 ---
Progress Note - Dictate Date Seen: Feb 06, 2025 Has the PT tested + for MRSA If YES, has PT been informed?: No Medical Necessity Reason Pt with a Central, PICC or Fol: No The following are medically ne: Baxter Catheter Subjective Patient was seen and evaluated in follow up. Patient complains of generalized discomfort. HCT 32.4, PTT 46.8, NA 130, CL 97, BUN 74, BREASTER 6.32. Renal US: moderate left hydronephrosis with multiple bilateral kidney stones better seen on prior CT. Patient underwent placement of 8.5 czech left percutaneous nephrostomy catheter. IR has recommended ureteral stent placement/kidney stone removal. Telemetry reviewed. vital signs Vital Sign Date Time Temp Pulse Resp B/P (MAP) Pulse Ox O2 Delivery O2 Flow Rate FiO2 02/06/25 12:15 97.3 89 20 115/84 (94) 99 97.3 02/05/25 20:00 Room Air* 0 21 Total Intake and Output 02/05/25 02/05/25 02/06/25 15:00 23:00 07:00 Intake Total 210 ml 1800 ml 475 ml Output Total 2500 ml 800 ml 2625 ml Balance -2290 ml 1000 ml -2150 ml medications Current Medications Medications Dose Ordered Sig/Natan Route Start Time Stop Time Status Last Admin Dose Admin Diagnostic Test (Pha) 1 strip Q6HR 01/30/25 00:00 02/06/25 05:25 1 STRIP Insulin Human Regular Q6HR SC 01/30/25 00:00 02/05/25 18:21 2 UNITS Dextrose 50 ml UD PRN IV 01/29/25 18:15 Acetaminophen 650 mg Q4HP PRN PO 01/29/25 18:15 02/06/25 01:06 650 MG Aspirin 81 mg DAILY PO 01/31/25 10:00 02/05/25 08:31 81 MG Furosemide 40 mg BIDD IV 01/30/25 18:00 02/05/25 17:08 40 MG Calcium Acetate 667 mg TIDWMEALS PO 01/31/25 08:00 02/06/25 08:24 667 MG Ertapenem 0.5 gm/ Sodium Chloride 50 ml @ 100 mls/hr DAILY IV 02/01/25 10:00 02/06/25 11:21 100 MLS/HR Mupirocin 1 applic BID EACHNOSTRI 02/01/25 22:00 02/06/25 21:59 02/06/25 12:02 1 APPLIC Saccharomyces Jaycobulardii 250 mg BID PO 02/02/25 22:00 02/06/25 11:22 250 MG Hydromorphone HCl 0.25 mg ONCE PRN IV 02/04/25 09:45 02/04/25 10:21 0.25 MG Lidocaine HCl 1 applic Q8HP PRN TOP 02/04/25 10:45 Epoetin Harsh-epbx 4,000 unit MWF SC 02/05/25 13:30 02/05/25 13:54 4,000 UNIT Iron Sucrose 110 ml @ 110 mls/hr DAILY@1200 IV 02/05/25 13:30 02/09/25 12:59 02/05/25 13:53 110 MLS/HR Vancomycin HCl 500 mg QID PO 02/05/25 14:15 02/06/25 05:24 500 MG Metronidazole 100 ml @ 100 mls/hr Q8HR IV 02/05/25 22:00 02/06/25 05:24 100 MLS/HR Ondansetron HCl 4 mg Q8HPRN PRN IV 02/05/25 14:15 Heparin Sodium/ Dextrose 250 ml @ 7 mls/hr Q24H IV 02/06/25 02:30 02/06/25 02:28 7 MLS/HR objective GENERAL: Alert and oriented x 3. No acute distress. EYES: PERRL, EOMI. Anicteric. HENT: Moist mucous membranes. LUNGS: Clear to auscultation bilaterally. CARDIOVASCULAR: Regular rate and rhythm. ABDOMEN: Soft, nontender and nondistended. EXTREMITIES: No edema. NEUROLOGIC: No focal neurological deficits. SKIN: Warm, dry. laboratory and microbiology Laboratory Tests 02/06/25 08:40 Test 02/06/25 08:40 Range/Units Serum Glucose 84 74-106 mg/dL Problem List NSTEMI rule out progressive coronary artery disease. Rule out InStent thrombosis/restenosis. Rule out structural heart disease. Coronary artery disease status post PTCA X 1 ADRIAN (noncompliant with dual antiplatelet therapy). Hypertension. Dyslipidemia. Hyperkalemia. Transaminitis. End-stage renal disease now on hemodialysis. Methamphetamine use. Tobacco use. Medical noncompliance Assessment/Plan Continued all current supportive medical care. IV antibiotics as ordered. Heparin drip per protocol. Dilaudid and Tylenol for pain management. Additional plan as per the hospital course. Dietary Evaluation Review Comments: Nutrition Recommendation 1) Consider Renal standard + cardiac diet 2) Nephro-saida 1 tab daily 3) Monitor PO intake, lab values, weight trend, and I/O Expected Outcomes/Goals: Lab values to improve Fu 3-5 days Plan discussed with: Patient MARIO CARNES MD Feb 06, 2025 13:57
[2025-02-07] VITALS (14 sets, daily range): BP systolic 90–128; BP diastolic 52–88; PULSE 102–129; RESP 14–22; TEMP 97.7–99.1; O2SAT 96–100
[2025-02-07] MEDS: HEPARIN DRIP/D5W 100UNITS/ML 250 ML IV SCH (01:29)
[2025-02-07] MEDS: HYDROmorphone HCL 2 MG/ML VL/or syr IV ONE (04:04)
[2025-02-07 05:16] LABS: Nucleated Red Blood Cells % 0.0 %
[2025-02-07 05:19] LABS: Hematocrit 27.4 % (41.0-53.0); Hemoglobin 8.9 g/dL (13.5-17.5); Mean Corpuscular Hemoglobin 26.7 pg (28.0-32.0); Mean Corpuscular Volume 82.6 fL (80.0-100.0)
[2025-02-07 05:29] LABS: Anion Gap 10 (5-15); Carbon Dioxide 23 mmol/L (20-31); Chloride 98 mmol/L (98-107); Potassium 5.3 mmol/L (3.5-5.1); Sodium 131 mmol/L (136-145)
[2025-02-07 05:30] LABS: Calcium 9.0 mg/dL (8.7-10.4)
[2025-02-07 05:34] LABS: INR 1.14 (0.9-1.15); Partial Thromboplastin Time 43.3 SEC (24.5-34.5); Prothrombin Time 11.9 sec (9.3-11.8)
[2025-02-07 05:35] LABS: BUN/Creatinine Ratio 10.8 (10.0-20.0); Blood Urea Nitrogen 73 mg/dL (9-23); Glucose 103 mg/dL (74-106)
[2025-02-07] MEDS ORDERED: HEPARIN DRIP/D5W 100UNITS/ML 250 ML IV SCH (06:45)
[2025-02-07] MEDS: SODIUM ZIRCONIUM CYCL 10 GM PAK PO ONE (08:30)
[2025-02-07] MEDS: InsuLIN REG 1unit/0.01ml Soln (100units/ml) IV ONE (08:30)
[2025-02-07] MEDS: SODIUM BICARB 8.4% 50Meq/50ml SYR INJ IV ONE (08:30)
[2025-02-07] MEDS: ALBUTEROL SULF 2.5 MG/0.5ML(0.5%) NEB SOLN NEB ONE (08:45)
[2025-02-07] MEDS: HEPARIN IN NS 1000Units/500mL 0 ML ONE (10:25)
[2025-02-07] MEDS: fentaNYL CITRATE 100 MCG/2 ML VL ONE (10:27)
[2025-02-07] MEDS: ANGIOMAX 250 MG VIAL IV ONE (10:27)
[2025-02-07] MEDS: HEPARIN SODIUM (PORCINE) 5000 UNITS/ML 1ML VIAL ONE (10:27)
[2025-02-07] MEDS: VERAPAMIL 2.5MG/ML INJ 2ML VIAL IV ONE (10:27)
[2025-02-07] MEDS: MIDAZOLAM HCL 2MG/2ML 2ml VIAL (1mg/ml) ONE (10:28)
[2025-02-07] MEDS: IODIXANOL 320MG/ML 100ML BTL IV ONE (10:28)
[2025-02-07] MEDS: SODIUM CHL 0.9% 50 ML ONE (10:28)
[2025-02-07] MEDS: NOREPINEPHRINE 8 MG/250ML KIT 0 ML IV ONE (11:22)
[2025-02-07] MEDS: CLOPIDOGREL BISULFATE 75 MG TAB ONE (12:04)
[2025-02-07] MEDS: SODIUM CHL 0.9% 1000 ML BAG XX ONE (12:10)
--- NOTE | 2025-02-07 16:32 | DVHPN2 ---
Progress Note Date Seen: Feb 07, 2025 Resident Creating Document: CARLOS PETTY ROLO Has the PT tested + for MRSA If YES, has PT been informed?: No Medical Necessity Reason Pt with a Central, PICC or Fol: No The following are medically ne: Baxter Catheter Subjective Review of Systems Patient seen and examined at the bedside. Patient is feeling better, has no active complaint. Objective vital signs Vital Sign Date Time Temp Pulse Resp B/P (MAP) Pulse Ox O2 Delivery O2 Flow Rate FiO2 02/07/25 13:55 115 18 114/85 (95) 100 02/07/25 12:30 98.2 98.2 02/06/25 20:00 Room Air* 0 21 Total Intake and Output 02/06/25 02/06/25 02/07/25 15:00 23:00 07:00 Intake Total 63 ml 2200 ml 400 ml Output Total 1900 ml 1350 ml Balance 63 ml 300 ml -950 ml medications Current Medications Medications Dose Ordered Sig/Natan Route Start Time Stop Time Status Last Admin Dose Admin Diagnostic Test (Pha) 1 strip Q6HR 01/30/25 00:00 02/07/25 05:57 1 STRIP Insulin Human Regular Q6HR SC 01/30/25 00:00 02/06/25 18:40 2 UNITS Dextrose 50 ml UD PRN IV 01/29/25 18:15 Acetaminophen 650 mg Q4HP PRN PO 01/29/25 18:15 02/06/25 01:06 650 MG Furosemide 40 mg BIDD IV 01/30/25 18:00 02/07/25 06:41 40 MG Calcium Acetate 667 mg TIDWMEALS PO 01/31/25 08:00 02/06/25 18:00 667 MG Ertapenem 0.5 gm/ Sodium Chloride 50 ml @ 100 mls/hr DAILY IV 02/01/25 10:00 02/06/25 11:21 100 MLS/HR Saccharomyces Boulardii 250 mg BID PO 02/02/25 22:00 02/06/25 22:00 250 MG Hydromorphone HCl 0.25 mg ONCE PRN IV 02/04/25 09:45 02/04/25 10:21 0.25 MG Lidocaine HCl 1 applic Q8HP PRN TOP 02/04/25 10:45 Epoetin Edilson-epbx 4,000 unit MWF SC 02/05/25 13:30 02/05/25 13:54 4,000 UNIT Iron Sucrose 110 ml @ 110 mls/hr DAILY@1200 IV 02/05/25 13:30 02/09/25 12:59 02/05/25 13:53 110 MLS/HR Vancomycin HCl 500 mg QID PO 02/05/25 14:15 02/07/25 06:41 500 MG Metronidazole 100 ml @ 100 mls/hr Q8HR IV 02/05/25 22:00 02/07/25 06:53 100 MLS/HR Ondansetron HCl 4 mg Q8HPRN PRN IV 02/05/25 14:15 Clopidogrel Bisulfate 75 mg DAILY PO 02/08/25 10:00 Aspirin 81 mg DAILY PO 02/08/25 10:00 Examination General Appearance: Alert, Oriented X3, Cooperative, No acute distress HEENT: Atraumatic, PERRLA, EOMI, Mucous membrane moist/pink Respiratory: Clear to auscultation, Normal air movement Cardiovascular: Regular rate, Normal S1, Normal S2, No murmurs, no chest wall tenderness Abdominal: Normal bowel sounds, Soft, No tenderness, No hepatospenomegaly, No masses Extremities: No clubbing, No cyanosis, No edema, Normal pulses, No tenderness/swelling Skin: No rashes, No breakdown, No significant lesion Neuro: Normal gait, Normal speech, Strength at 5/5 X4 ext, Normal tone, Sensation intact, Cranial nerves 3-12 NL, Reflexes 2+ Psych/Mental Status: Mental status NL, Mood NL laboratory and microbiology Laboratory Tests 02/07/25 05:00 Test 02/07/25 05:00 Range/Units Serum Glucose 103 74-106 mg/dL Microbiology Date/Time Source Procedure Growth Status 02/01/25 06:00 Stool Clostridium difficile Toxin Assay - Final Complete 01/30/25 18:40 Nose MRSA Screen - Final Methicillin Resistant S.aureus Complete 01/29/25 09:10 Voided Urine Urine Culture - Final Complete Labs and/or images reviewed: Labs reviewed by me, Image(s) reviewed by me Problem List/Assessment/Plan Problem List/Assessment/Plan This is a 69-year-old gentleman with past medical history of coronary artery disease (status post PCI), hypertension, HFrEF (EF 25%) CKD 4, came to the hospital due to chest pain, shortness of breath and cough. Nephrology has been called due to PUSHPA. 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 Moderate left hydronephrosis, mostly at the superior pole * Abdominopelvic CT scan 01/29 shows, Relatively mild bilateral hydronephrosis with thickened urinary bladder and Baxter catheter in-situ. * NM NM MAG3 RENAL SCAN 02/01 shows, atrophic right kidney demonstrating minimal uptake and excretion, delayed uptake and non responsiveness to diuretic administration in the left kidney suggesting functional obstruction Plan/recommendation: (Dr. Castorena) * Continue conservative management, Lasix 40 mg b.i.d., PhosLo, IV iron and Epoetin edilson * Considering imaging finding, and renal function, patient would benefit from urological intervention * Tentative planned for hemodialysis for tomorrow * Patient is at risk of contrast induced nephropathy (57.3% risk of contrast induced nephropathy, with 12.6% risk of dialysis requirement) * We will follow up with the patient Thank you for giving us the opportunity to take care of the patient. Please call back if you have any question/concerns. Plan discussed with: Patient, Other Dietary Evaluation Review Comments: Nutrition Recommendation 1) Consider Renal standard + cardiac diet 2) Nephro-saida 1 tab daily 3) Monitor PO intake, lab values, weight trend, and I/O Expected Outcomes/Goals: Lab values to improve Fu 3-5 days CARLOS PETTY Feb 07, 2025 16:32
--- NOTE | 2025-02-07 19:22 | DVHPNRES ---
Progress Note Date Seen: Feb 07, 2025 Resident Creating Document: TERI RAMON RESIDENT Has the PT tested + for MRSA If YES, has PT been informed?: No Medical Necessity Reason Pt with a Central, PICC or Fol: No The following are medically ne: Allred Catheter Subjective Review of Systems Leobardo Fink is a 69-year-old male with past medical history of coronary artery disease with stent placement eight months ago, End-stage renal disease (makes urine and has had one dialysis done until now -yesterday at [facility]), came in with chief complaints of abdominal pain, vomiting and diarrhea. Patient was transferred from [facility] due to hyperkalemia and hydronephrosis with a Geo catheter and Allred's catheter in place. Prior to transfer, patient was given Dilaudid for pain. Patient states that he had a sharp generalized abdominal pain which was acute, rates it as 10/10, constant and associated with 4 episodes of watery vomiting, which was not mixed with blood, as well as 4 episodes of watery diarrhea, which did not have any blood or mucus in it. He has not been able to keep anything down and states that he feels weakness and could hardly walk since yesterday. On inquiry patient states that he took marijuana one week ago, which also cause nausea and for him to throw up. Patient denies having any food from outside, has had no sick contacts or taken any new medication recently. He does not have any shortness of breath, chest pain but complains still of nausea. Patient also reported that he had one dialysis session yesterday at [facility] and that his kidneys are not working. He is a poor historian and does not know the other comorbidities he has, he states he does not take any medication at home but that he took Plavix and aspirin for a few months and stopped a few months ago believing it didnt really help him in any way. Past medical history: Coronary artery disease with a stent placement eight months ago, end-stage renal disease on hemodialysis Past surgical history: Denies any surgery in the past Family history: Patient states both mother and father due to [place] Social history: Patient lives at his home with his friends. He smokes 4-5 cigarettes per day now but previously used to smoke one pack per day for the past 60 years. He states he quit alcohol 37 years ago and does not drink anymore. He takes marijuana occasionally and the last one was one week ago. Used to take methamphetamine a while back. Allergies: None Code status: Full code Patient seen and examined at bedside. Patient is alert and oriented to time, place person and responding to all questions. Eyes: No Pain, No Vision change, No Conjunctivae inflammation, No Eyelid inflammation, No Redness ENT: No Ear pain, No Ear discharge, No Nose pain, No Nose discharge, No Nose congestion, No Mouth pain, No Mouth swelling, No Throat pain, No Throat swelling Cardiovascular: No Chest Pain, No Palpitations, No Orthopnea, No Paroxysmal No Dyspnea, No Edema, No Lt Headedness Respiratory: No Cough, No Dry, No Shortness of breath, No SOB with exertion, No Wheezing, No Hemoptysis, No Pleuritic Pain, No Sputum Gastrointestinal: No Nausea, No Vomiting, No Abdominal Pain, No Diarrhea, No Constipation, No Melena, No Hematochezia Genitourinary: No Dysuria, No Frequency, No Incontinence, No Hematuria, No Retention 01/30/2025: Patient was seen and examined by me today. Patient reports feeling much better than yesterday. We are doing a cardiology consult as there were T- wave changes multiple leads and troponins are up trending. cardiology on board. 01/31/2025: Patient was seen and examined by me today. Patient reports his urine is burning. [facility] today faxed patient's urine reports which shows ESBL positive. Ertapenem started. Cardiology on board, patient going to molder labels tomorrow. 02/01/2025: Patient was seen and examined by me today. Heparin drip continued. Cardiology on board. Nephrology on board as well and patient underwent hemodialysis yesterday and tolerated it well. 02/02/2025: Patient was seen and examined by me today. patient was taken to the molder labels yesterday on 02/01/25 and child life assistant reported ejection fraction as 10%, patient has left main ostium narrowing of more than 90%, LAD more than 90% narrowed as well. He has suggested Impella assisted left main coronary intervention and stent placement of the LAD. Waiting for further plan from Cardiology regarding Impella procedure, probable on Wednesday02/07/2025. Yesterday the patient also some how had his Geo catheter removed And called nurse when he started bleeding a lot, as per patient he did not remove it and he does not know how it came out. 1 packed red blood cell was transfused as he had bled over 300 mL according to the night team. Hemoglobin is stable at 9.2 today. Pressure was applied to the neck. Today he underwent tunneled catheter placement for hemodialysis. 02/03/2025: Patient was seen and examined by me today. Patient reports that he feels much better than before. He reports he passed stool once today which was normal and soft. He reports that his shortness of breath has decreased and he is not using oxygen via nasal cannula anymore. Nephrology suggest that since there is improvement in the patient's urine volumes, they will monitor for signs of meaningful kidney recovery and hold for the dialysis treatment for now. We are still awaiting Cardiology consult regarding Impella. We will continue current management for now. 02/04/2025-patient was seen today at bedside, labs and chart reviewed. Patient is still having diarrhea. Patient is seen by Nephrology, recommended for possible hemodialysis tomorrow. Patient also seen by Cardiology Dr. Turner. Recommendation reviewed and appreciated. Waiting for further plan from Cardiology COMMENT regarding Impella procedure, probable on Wednesday02/07/2025. Dr. Turner did not mentioned anything regarding Impella yet. 02/05/25- The patient was seen at bedside today. Labs and charts were reviewed. Vancomycin dose was increased from 250mg to 500 mg qid. Flagyl iv q.8 hours was started. Nephrology saw the patient and IR consult for PCNL was placed. Pending evaluation by Cardiology. We tried to reach out to next of kin which is the patient's sister, but were unable to get in touch with her. Protonix was discontinued patient as patient is C diff positive. 02/06/25- the patient was seen at bedside today. Urology saw the patient yesterday and recommended placement of left nephrostomy tube. Left flank nephrostomy tube was placed, with drainage of moderate amount of clear serosanguineous urine noted in the drainage bag. Cardiology was consulted regarding Impella assisted PCI, which is scheduled for tomorrow with . 02/07/25- patient was seen at bedside today. All labs and charts were reviewed. Left nephrostomy tube was draining clear serosanguineous urine, around 10 mL present in the bag. The patient was taken for cardiac catheterization, pending results of the angiography. Plan for hemodialysis tomorrow as per Nephrology. Objective vital signs Vital Sign Date Time Temp Pulse Resp B/P (MAP) Pulse Ox O2 Delivery O2 Flow Rate FiO2 02/07/25 18:00 100/58 02/07/25 16:34 97.7 117 20 100 97.7 02/06/25 20:00 Room Air* 0 21 Total Intake and Output 02/06/25 02/06/25 02/07/25 15:00 23:00 07:00 Intake Total 63 ml 2200 ml 400 ml Output Total 1900 ml 1350 ml Balance 63 ml 300 ml -950 ml medications Current Medications Medications Dose Ordered Sig/Natan Route Start Time Stop Time Status Last Admin Dose Admin Diagnostic Test (Pha) 1 strip Q6HR 01/30/25 00:00 02/07/25 18:00 1 STRIP Insulin Human Regular Q6HR SC 01/30/25 00:00 02/06/25 18:40 2 UNITS Dextrose 50 ml UD PRN IV 01/29/25 18:15 Acetaminophen 650 mg Q4HP PRN PO 01/29/25 18:15 02/06/25 01:06 650 MG Furosemide 40 mg BIDD IV 01/30/25 18:00 02/07/25 06:41 40 MG Calcium Acetate 667 mg TIDWMEALS PO 01/31/25 08:00 02/07/25 18:00 667 MG Ertapenem 0.5 gm/ Sodium Chloride 50 ml @ 100 mls/hr DAILY IV 02/01/25 10:00 02/06/25 11:21 100 MLS/HR Saccharomyces Boulardii 250 mg BID PO 02/02/25 22:00 02/06/25 22:00 250 MG Hydromorphone HCl 0.25 mg ONCE PRN IV 02/04/25 09:45 02/04/25 10:21 0.25 MG Lidocaine HCl 1 applic Q8HP PRN TOP 02/04/25 10:45 Epoetin Harsh-epbx 4,000 unit MWF SC 02/05/25 13:30 02/05/25 13:54 4,000 UNIT Iron Sucrose 110 ml @ 110 mls/hr DAILY@1200 IV 02/05/25 13:30 02/09/25 12:59 02/05/25 13:53 110 MLS/HR Vancomycin HCl 500 mg QID PO 02/05/25 14:15 02/07/25 18:00 500 MG Metronidazole 100 ml @ 100 mls/hr Q8HR IV 02/05/25 22:00 02/07/25 06:53 100 MLS/HR Ondansetron HCl 4 mg Q8HPRN PRN IV 02/05/25 14:15 Clopidogrel Bisulfate 75 mg DAILY PO 02/08/25 10:00 Aspirin 81 mg DAILY PO 02/08/25 10:00 Examination General Appearance: Alert, Oriented X3, Cooperative, mild distress. Left nephrostomy tube and attached bag intact with dressing, drainage of moderate amount of clear serosanguineous urine in the drainage bag. Clean and dry dressing present in both right and left groin. HEENT: Atraumatic, Mucous membranes moist/pink. , Presence of tunneled dialysis catheter intact with dressing over it on the right upper chest, no swelling soakage or erythema Respiratory: Clear to auscultation, Normal air movement, No added sounds Cardiovascular: Regular rate, Normal S1, Normal S2, No murmurs Abdominal: Active bowel sounds, Soft, no distention, no tenderness Extremities: No edema, Normal pulses, No tenderness/swelling Skin: No Significant rash, except past surgical scars , Neuro: Normal speech, sensorimotor deficits none Psych/Mental Status: Mental status NL, Mood NL Nurse was there as financial intern during examination laboratory and microbiology Laboratory Tests 02/07/25 05:00 Test 02/07/25 05:00 Range/Units Serum Glucose 103 74-106 mg/dL Microbiology Date/Time Source Procedure Growth Status 02/01/25 06:00 Stool Clostridium difficile Toxin Assay - Final Complete 01/30/25 18:40 Nose MRSA Screen - Final Methicillin Resistant S.aureus Complete 01/29/25 09:10 Voided Urine Urine Culture - Final Complete Labs and/or images reviewed: Labs reviewed by me, Image(s) reviewed by me Problem List/Assessment/Plan Problem List/Assessment/Plan # C diff acute gastroenteritis #transaminitis -ast 2145, alt 1848, ALP 158 -stool positive for C diff -hepatitis panel-hep C antibody positive - vancomycin dose increased from 150mg to 500mg qid (02/05/25) -patient started on flagyl 500mg q 8 hr (02/05/25) #Left hydronephrosis on imaging #ESRD , history of hemodialysis #Anemia of chronic disease likely due to above #UTI, ESBL positive(reports sent from [facility]) Secondary hyperparathyroidism Left hydronephrosis due to stricture of the renal pelvis and proximal ureter, status post placement of 8.5 maltese left percutaneous nephrostomy catheter. -CT abdomen pelvis without contrast shows: Relatively mild bilateral hydronephrosis with thickened urinary bladder and Allred catheter in-situ. -UA shows color brown, protein 2+, blood 3+, leukocyte esterase 2+, urine RBC 202, urine WBC clumps present, WBC 2795 -allred catheter in place -Ertapenem begun on 02/01/2025 - dialysis done on 02/02/25 - Geo catheter removed on 02/01/2025 and tunnel catheter placed on 02/02/2025 -left nephrostomy tube placed on 02/06/2025- draining clear serosanguineous urine -plan for hemodialysis tomorrow 02/08/2025 as per nephrology #NSTEMI likely Type 2 rule out progressive coronary artery disease. #Rule out InStent thrombosis/restenosis. #Rule out structural heart disease. #acute systolic/diastolic CHF #Coronary artery disease status post PTCA X 1 ADRIAN (noncompliant with dual antiplatelet therapy). #Hypertension #History of coronary artery disease #Dyslipidemia -troponin I elevated 267> 297> 448> 585> 891> 814 -BNP- 2207 -EKG on 01/30: Sinus tachycardia; Incomplete right bundle branch block; Repol abnrm suggests ischemia, diffuse leads -telemetry -Aspirin 162 mg once -Atorvastatin 80 mg -CXR shows: Findings may represent congestive failure or fluid overload; Internal jugular catheter in the superior vena cava above the right atrium. -cardiology consult suggested transthoracic echocardiogram to evaluate cardiac function, chest pain protocol heart score 8 points, HOSSEIN score of 4 points, heparin drip per ACS protocol, antiplatelet therapy, initiate lipid-lowering agent with improved LFTs, close cardiac surveillance -cardiology took the patient to molder labels on 02/01/2025 and reported that: '* The patient's left main at ostium is narrowed, more than 90%, short left main. * Left anterior descending artery in its mid region is narrowed 90%. * Circumflex and obtuse marginal artery normal. * The right coronary artery is a large dominant artery, normal. * Ejection fraction is 10%. -cardiac catheterization done today, results pending #Hyperkalemia monitor, insulin given and stable now #Hypoglycemia corrected -monitor blood sugar level #Polysubstance use disorder including marijuana/amphetamine/tobacco #Medical and adherence -counseled the patient regarding polysubstance use cessation and the importance of adherence to medical management #-MRSA positive -ON MUPIROCIN GI prophylaxis: Protonix Diet: Clear liquid diet DVT prophylaxis:patient on heparin drip Goals of care: Full code, discussed for >20 minutes Plan discussed with Dr Gifford Plan discussed with: Patient Dietary Evaluation Review Comments: Nutrition Recommendation 1) Consider Renal standard + cardiac diet 2) Nephro-saida 1 tab daily 3) Monitor PO intake, lab values, weight trend, and I/O Expected Outcomes/Goals: Lab values to improve Fu 3-5 days Date of Service: Feb 07, 2025 Billing Provider: LIVIA GIFFORD MD Common Visit Codes: [id number] INP/OBS CARE(HIGH) TERI RAMON RESIDENT Feb 07, 2025 19:22
[2025-02-07 19:56] LABS: Chloride 99 mmol/L (98-107); Potassium 5.0 mmol/L (3.5-5.1)
[2025-02-07 19:58] LABS: Anion Gap 10 (5-15); Carbon Dioxide 22 mmol/L (20-31)
[2025-02-07 20:03] LABS: BUN/Creatinine Ratio 12.4 (10.0-20.0); Calcium 8.3 mg/dL (8.7-10.4); Sodium 131 mmol/L (136-145)
[2025-02-07 20:04] LABS: Glucose 113 mg/dL (74-106)
[2025-02-07 20:08] LABS: Blood Urea Nitrogen 85 mg/dL (9-23)
[2025-02-07 21:20] LABS: Hemoglobin 9.1 g/dL (13.5-17.5)
[2025-02-07 21:21] LABS: Hematocrit 28.9 % (41.0-53.0)
--- NOTE | 2025-02-07 23:17 | DVHPN2 ---
Progress Note - Dictate Date Seen: Feb 07, 2025 Has the PT tested + for MRSA If YES, has PT been informed?: No Medical Necessity Reason Pt with a Central, PICC or Fol: No The following are medically ne: Baxter Catheter Subjective Patient was seen and evaluated in follow up. Patient complains of 8/10 back pain. Patient is planned for Impella assisted PCI, to assist during procedure. HGB 8.9, HCT 27.4, PT 11.9, PTT 43.3, NA 131, K 5.3, BUN 73, PEDIATRIC CARDIOLOGIST 6.75. Telemetry reviewed. vital signs Vital Sign Date Time Temp Pulse Resp B/P (MAP) Pulse Ox O2 Delivery O2 Flow Rate FiO2 02/07/25 09:18 98.7 127 22 100/61 (74) 96 98.7 02/06/25 20:00 Room Air* 0 21 Total Intake and Output 02/06/25 02/06/25 02/07/25 15:00 23:00 07:00 Intake Total 63 ml 2200 ml 400 ml Output Total 1900 ml 1350 ml Balance 63 ml 300 ml -950 ml medications Current Medications Medications Dose Ordered Sig/Natan Route Start Time Stop Time Status Last Admin Dose Admin Diagnostic Test (Pha) 1 strip Q6HR 01/30/25 00:00 02/07/25 05:57 1 STRIP Insulin Human Regular Q6HR SC 01/30/25 00:00 02/06/25 18:40 2 UNITS Dextrose 50 ml UD PRN IV 01/29/25 18:15 Acetaminophen 650 mg Q4HP PRN PO 01/29/25 18:15 02/06/25 01:06 650 MG Aspirin 81 mg DAILY PO 01/31/25 10:00 02/05/25 08:31 81 MG Furosemide 40 mg BIDD IV 01/30/25 18:00 02/07/25 06:41 40 MG Calcium Acetate 667 mg TIDWMEALS PO 01/31/25 08:00 02/06/25 18:00 667 MG Ertapenem 0.5 gm/ Sodium Chloride 50 ml @ 100 mls/hr DAILY IV 02/01/25 10:00 02/06/25 11:21 100 MLS/HR Saccharomyces Boulardii 250 mg BID PO 02/02/25 22:00 02/06/25 22:00 250 MG Hydromorphone HCl 0.25 mg ONCE PRN IV 02/04/25 09:45 02/04/25 10:21 0.25 MG Lidocaine HCl 1 applic Q8HP PRN TOP 02/04/25 10:45 Epoetin Harsh-epbx 4,000 unit MWF SC 02/05/25 13:30 02/05/25 13:54 4,000 UNIT Iron Sucrose 110 ml @ 110 mls/hr DAILY@1200 IV 02/05/25 13:30 02/09/25 12:59 02/05/25 13:53 110 MLS/HR Vancomycin HCl 500 mg QID PO 02/05/25 14:15 02/07/25 06:41 500 MG Metronidazole 100 ml @ 100 mls/hr Q8HR IV 02/05/25 22:00 02/07/25 06:53 100 MLS/HR Ondansetron HCl 4 mg Q8HPRN PRN IV 02/05/25 14:15 Heparin Sodium/ Dextrose 250 ml @ 9 mls/hr Q24H IV 02/07/25 06:45 objective GENERAL: Alert and oriented x 3. No acute distress. EYES: PERRL, EOMI. Anicteric. HENT: Moist mucous membranes. LUNGS: Clear to auscultation bilaterally. CARDIOVASCULAR: Regular rate and rhythm. ABDOMEN: Soft, nontender and nondistended. EXTREMITIES: No edema. NEUROLOGIC: No focal neurological deficits. SKIN: Warm, dry. laboratory and microbiology Laboratory Tests 02/07/25 05:00 Test 02/07/25 05:00 Range/Units Serum Glucose 103 74-106 mg/dL Problem List NSTEMI rule out progressive coronary artery disease. Rule out InStent thrombosis/restenosis. Rule out structural heart disease. Coronary artery disease status post PTCA X 1 ADRIAN (noncompliant with dual antiplatelet therapy). Hypertension. Dyslipidemia. Hyperkalemia. Transaminitis. End-stage renal disease now on hemodialysis. Methamphetamine use. Tobacco use. Medical noncompliance Assessment/Plan Continued all current supportive medical care. Diuretics with Lasix. IV antibiotics as ordered. Heparin drip per protocol. Dilaudid for pain management. Additional plan as per the hospital course. Dietary Evaluation Review Comments: Nutrition Recommendation 1) Consider Renal standard + cardiac diet 2) Nephro-saida 1 tab daily 3) Monitor PO intake, lab values, weight trend, and I/O Expected Outcomes/Goals: Lab values to improve Fu 3-5 days Plan discussed with: Patient MARIO CARNES MD Feb 07, 2025 12:24
[2025-02-08] VITALS (8 sets, daily range): BP systolic 87–153; BP diastolic 41–92; PULSE 63–151; RESP 18–19; TEMP 97.4–98; O2SAT 91–100
--- NOTE | 2025-02-08 01:26 | DVHOP ---
DATE OF SURGERY: 02/07/2025 TECHNIQUE PERFORMED: * Emergency case. * Insertion of 6-Ghanaian arterial line in the right radial artery. * Abdominal aortogram. * Bilateral iliac artery and lower extremity angiography. * Insertion of the Impella device in the left ventricle under fluoroscopy guidance. * Balloon angioplasty of the left main with 3.0 x 8 mm length noncompliant balloon. * Stenting and angioplasty of the ostial of the left main with 3.5 x 8 mm length [place] stent of the Qalendra. * Intravascular ultrasound of the left main and also left anterior descending artery. * Perclose of the right femoral artery. * Perclose of the left femoral artery. SURGEONS: Linda Turner MD and Aman Saeed MD. Both are the equal surgeon. ASSISTANTS: They were assisted by Cuong Muro. COMPLICATIONS: None. INDICATIONS: The patient has left main ostial stenosis in the range of 95%. The patient has poor function. He is not a surgical candidate. Systolic congestive heart failure, known ST elevation PR. DESCRIPTION OF PROCEDURE: Risks and benefits all have been explained to patient, understood and accepted very well. In a standard manner, the patient was brought to shipyard laborer. Left and right groin were shaved, cleaned with soap and Betadine. A 6-Ghanaian arterial line was placed. Abdominal aortography was done. Bilateral iliac artery angiography was done and subsequently now we have put the Perclose sheath over standard manner by doing the gradual dilation with a 7-Ghanaian, 8-Ghanaian and also with 14-Ghanaian dilator and subsequently now we tried to put another wire through the sheath. We are unable to do it, so we went from the left femoral artery and we have done the left femoral artery. Puncture has been done and the Perclose sheath was also pulled into the left femoral artery. From the right femoral artery, we also put an Impella device. We went in the left ventricle and working very well. Subsequently, we put XB 3.5, 7-Ghanaian guiding catheter and the angiography was done. Subsequently, now we have done IVUS also after putting the Spectra wire. AngioMax has already been started on the patient and then we concluded that ostial left main is narrowed more than 90%. Now, we put a balloon 3.0 x 10 mm in length noncompliant balloon. Balloon angioplasty of left main ostial had been done. Subsequently, we put a stent in the left main 3.5 x 8 mm length that had been deployed a total of 26 atmospheres. The stent size was increased almost to 3.8 mm in size. Balloon deflated, balloon had been discontinued. Angiography was done. Result was satisfactory. The guiding catheter was pushed in all the way into the left main all the way to the LAD and there was no drop of the blood pressure anymore. That confirmed that the artery is widely open. Balloon wire and catheter all had been discontinued. has been done without any complication. CONCLUSION: Prior to performing the procedure, the left main and ostium is narrowed in the range of 95% and HOSSEIN grade 3. Residual stenosis is 0%. No spasm. No dissection. The procedure went well. Linda Turner MD MP/SHALINI/MARLENY TID: [id number] RECEIPT: [id number] [facility]
[2025-02-08] MEDS: MELATONIN 5 MG TAB PO ONE (02:19)
[2025-02-08] MEDS: KETOROLAC TROMETH 30 MG/ML 1ML VIAL IV ONE (02:21)
[2025-02-08 05:17] LABS: Hemoglobin 8.0 g/dL (13.5-17.5); Nucleated Red Blood Cells % 0.0 %
[2025-02-08 05:21] LABS: Hematocrit 24.7 % (41.0-53.0); Mean Corpuscular Hemoglobin 26.7 pg (28.0-32.0); Mean Corpuscular Volume 82.7 fL (80.0-100.0)
[2025-02-08 05:31] LABS: Chloride 98 mmol/L (98-107); Potassium 5.4 mmol/L (3.5-5.1); Sodium 131 mmol/L (136-145)
[2025-02-08 05:32] LABS: Anion Gap 11 (5-15); Calcium 8.5 mg/dL (8.7-10.4); Carbon Dioxide 22 mmol/L (20-31)
[2025-02-08 05:37] LABS: BUN/Creatinine Ratio 11.2 (10.0-20.0); Glucose 82 mg/dL (74-106)
[2025-02-08 05:41] LABS: Blood Urea Nitrogen 76 mg/dL (9-23)
[2025-02-08] MEDS ORDERED: SODIUM CHL 0.9% 1000 ML BAG XX ONE (07:00)
[2025-02-08] MEDS: SODIUM ZIRCONIUM CYCL 10 GM PAK PO ONE (08:00)
[2025-02-08] MEDS: DEXTROSE (50%) 50ML SYRG IV ONE ×2 (10:24→11:03)
[2025-02-08] MEDS: LIDOCAINE 2%HCL (LOCAL ANESTH.) INJ 20ML MDV ONE (10:26)
[2025-02-08] MEDS: ALBUTEROL SULF 2.5 MG/0.5ML(0.5%) NEB SOLN ONE (10:26)
[2025-02-08] MEDS: CLOPIDOGREL BISULFATE 75 MG TAB PO SCH (10:28)
[2025-02-08] MEDS: SODIUM BICARB 8.4% 50Meq/50ml SYR INJ IV ONE (11:03)
[2025-02-08] MEDS: FUROSEMIDE 40 MG/4 ML VIAL IV ONE (11:06)
[2025-02-08] MEDS: InsuLIN REG 1unit/0.01ml Soln (100units/ml) IV ONE (11:06)
--- NOTE | 2025-02-08 16:45 | DVHPN2 ---
Progress Note Date Seen: Feb 08, 2025 Resident Creating Document: CARLOS PETTY ROLO Has the PT tested + for MRSA If YES, has PT been informed?: No Medical Necessity Reason Pt with a Central, PICC or Fol: No The following are medically ne: Baxter Catheter Subjective Review of Systems Patient seen and examined at the bedside. Patient is feeling better, but still complaining of shortness of breaths. Objective vital signs Vital Sign Date Time Temp Pulse Resp B/P (MAP) Pulse Ox O2 Delivery O2 Flow Rate FiO2 02/08/25 13:00 97.4 151 18 94/41 (58) 91 97.4 02/08/25 08:00 Room Air* 0 21 Total Intake and Output 02/07/25 02/07/25 02/08/25 15:00 23:00 07:00 Intake Total 780 ml 625 ml Output Total 250 ml 1450 ml Balance 530 ml -825 ml medications Current Medications Medications Dose Ordered Sig/Natan Route Start Time Stop Time Status Last Admin Dose Admin Diagnostic Test (Pha) 1 strip Q6HR 01/30/25 00:00 02/08/25 12:29 1 STRIP Insulin Human Regular Q6HR SC 01/30/25 00:00 02/08/25 12:00 2 UNITS Dextrose 50 ml UD PRN IV 01/29/25 18:15 Acetaminophen 650 mg Q4HP PRN PO 01/29/25 18:15 02/06/25 01:06 650 MG Furosemide 40 mg BIDD IV 01/30/25 18:00 02/07/25 06:41 40 MG Calcium Acetate 667 mg TIDWMEALS PO 01/31/25 08:00 02/08/25 12:29 667 MG Ertapenem 0.5 gm/ Sodium Chloride 50 ml @ 100 mls/hr DAILY IV 02/01/25 10:00 02/08/25 10:28 100 MLS/HR Saccharomyces Boulardii 250 mg BID PO 02/02/25 22:00 02/08/25 10:28 250 MG Hydromorphone HCl 0.25 mg ONCE PRN IV 02/04/25 09:45 02/04/25 10:21 0.25 MG Lidocaine HCl 1 applic Q8HP PRN TOP 02/04/25 10:45 Epoetin Edilson-epbx 4,000 unit MWF SC 02/05/25 13:30 02/05/25 13:54 4,000 UNIT Iron Sucrose 110 ml @ 110 mls/hr DAILY@1200 IV 02/05/25 13:30 02/09/25 12:59 02/08/25 12:29 110 MLS/HR Vancomycin HCl 500 mg QID PO 02/05/25 14:15 02/08/25 12:29 500 MG Metronidazole 100 ml @ 100 mls/hr Q8HR IV 02/05/25 22:00 02/08/25 15:04 100 MLS/HR Ondansetron HCl 4 mg Q8HPRN PRN IV 02/05/25 14:15 Clopidogrel Bisulfate 75 mg DAILY PO 02/08/25 10:00 02/08/25 10:28 75 MG Aspirin 81 mg DAILY PO 02/08/25 10:00 02/08/25 10:28 81 MG Examination General Appearance: Alert, Oriented X3, Cooperative, No acute distress HEENT: Atraumatic, PERRLA, EOMI, Mucous membrane moist/pink Respiratory: Bilateral lower zone mild crackles Cardiovascular: Regular rate, Normal S1, Normal S2, No murmurs, no chest wall tenderness Abdominal: Normal bowel sounds, Soft, No tenderness, No hepatospenomegaly, No masses Extremities: Bilateral trace edema Skin: No rashes, No breakdown, No significant lesion Neuro: Normal gait, Normal speech, Strength at 5/5 X4 ext, Normal tone, Sensation intact, Cranial nerves 3-12 NL, Reflexes 2+ Psych/Mental Status: Mental status NL, Mood NL laboratory and microbiology Laboratory Tests 02/08/25 10:53 02/08/25 05:00 Test 02/08/25 05:00 Range/Units Serum Glucose 82 74-106 mg/dL Microbiology Date/Time Source Procedure Growth Status 02/01/25 06:00 Stool Clostridium difficile Toxin Assay - Final Complete 01/30/25 18:40 Nose MRSA Screen - Final Methicillin Resistant S.aureus Complete 01/29/25 09:10 Voided Urine Urine Culture - Final Complete Labs and/or images reviewed: Labs reviewed by me, Image(s) reviewed by me Problem List/Assessment/Plan Problem List/Assessment/Plan This is a 69-year-old gentleman with past medical history of coronary artery disease (status post PCI), hypertension, HFrEF (EF 25%) CKD 4, came to the hospital due to chest pain, shortness of breath and cough. Nephrology has been called due to PUSHPA. 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 Moderate left hydronephrosis, mostly at the superior pole * Abdominopelvic CT scan 01/29 shows, Relatively mild bilateral hydronephrosis with thickened urinary bladder and Baxter catheter in-situ. * NM NM MAG3 RENAL SCAN 02/01 shows, atrophic right kidney demonstrating minimal uptake and excretion, delayed uptake and non responsiveness to diuretic administration in the left kidney suggesting functional obstruction Plan/recommendation: (Dr. Castorena) * Continue conservative management, Lasix 40 mg b.i.d., PhosLo, IV iron and Epoetin edilson * Hemodialysis today * Patient is at risk of contrast induced nephropathy (57.3% risk of contrast induced nephropathy, with 12.6% risk of dialysis requirement) * We will follow up with the patient Thank you for giving us the opportunity to take care of the patient. Please call back if you have any question/concerns. Plan discussed with: Patient, Other (RN) Dietary Evaluation Review Comments: Nutrition Recommendation 1) Consider Renal standard + cardiac diet 2) Nephro-saida 1 tab daily 3) Monitor PO intake, lab values, weight trend, and I/O Expected Outcomes/Goals: Lab values to improve Fu 3-5 days ADDENDUM ADDENDUM PUSHPA on CKD currently still requires dialysis. s/p cath procedure day ? impella s/p PCNT yesterday for functional kidney, other kidney is atrophic ESRD not determined at this time, will continue PUSHPA dialysis in outpatient CARLOS PETTY Feb 08, 2025 16:45 SHAZIA CASTORENA MD Feb 08, 2025 18:33
[2025-02-08] MEDS ORDERED: VANC250PO PO (17:25)
[2025-02-08] MEDS ORDERED: CLOP75TA28 PO (17:25)
[2025-02-08] MEDS ORDERED: SACC250C PO (17:25)
[2025-02-08] MEDS ORDERED: FURO1TAB31 PO (17:25)
[2025-02-08] MEDS ORDERED: ASPI81CH59 PO (17:25)
--- NOTE | 2025-02-08 18:20 | DVHPN2 ---
Progress Note - Dictate Date Seen: Feb 08, 2025 Has the PT tested + for MRSA If YES, has PT been informed?: No Medical Necessity Reason Pt with a Central, PICC or Fol: No The following are medically ne: Baxter Catheter Subjective Patient was seen and evaluated in follow up. Patient underwent abdominal aortogram, bilateral iliac artery and lower extremity angiography, insertion of the Impella device in the left ventricle under fluoroscopy guidance, balloon angioplasty of the left main, stenting and angioplasty of the ostial of the left main, Perclose of the right femoral artery, Perclose of the left femoral artery. Prior to performing the procedure, the left main and ostium is narrowed in the range of 95% and HOSSEIN grade 3. Residual stenosis is 0%. No spasm. No dissection. The procedure went well. HGB 8, HCT 24.7, K 5.4, BUN 76, [employer] 6.77, CA 8.5. Telemetry reviewed. vital signs Vital Sign Date Time Temp Pulse Resp B/P (MAP) Pulse Ox O2 Delivery O2 Flow Rate FiO2 02/08/25 11:06 122/77 02/08/25 09:00 97.5 63 18 99 97.5 02/07/25 20:00 Room Air* 0 21 Total Intake and Output 02/07/25 02/07/25 02/08/25 15:00 23:00 07:00 Intake Total 780 ml 625 ml Output Total 250 ml 1450 ml Balance 530 ml -825 ml medications Current Medications Medications Dose Ordered Sig/Natan Route Start Time Stop Time Status Last Admin Dose Admin Diagnostic Test (Pha) 1 strip Q6HR 01/30/25 00:00 02/08/25 12:29 1 STRIP Insulin Human Regular Q6HR SC 01/30/25 00:00 02/08/25 00:00 2 UNITS Dextrose 50 ml UD PRN IV 01/29/25 18:15 Acetaminophen 650 mg Q4HP PRN PO 01/29/25 18:15 02/06/25 01:06 650 MG Furosemide 40 mg BIDD IV 01/30/25 18:00 02/07/25 06:41 40 MG Calcium Acetate 667 mg TIDWMEALS PO 01/31/25 08:00 02/08/25 12:29 667 MG Ertapenem 0.5 gm/ Sodium Chloride 50 ml @ 100 mls/hr DAILY IV 02/01/25 10:00 02/08/25 10:28 100 MLS/HR Saccharomyces Boulardii 250 mg BID PO 02/02/25 22:00 02/08/25 10:28 250 MG Hydromorphone HCl 0.25 mg ONCE PRN IV 02/04/25 09:45 02/04/25 10:21 0.25 MG Lidocaine HCl 1 applic Q8HP PRN TOP 02/04/25 10:45 Epoetin Harsh-epbx 4,000 unit MWF SC 02/05/25 13:30 02/05/25 13:54 4,000 UNIT Iron Sucrose 110 ml @ 110 mls/hr DAILY@1200 IV 02/05/25 13:30 02/09/25 12:59 02/08/25 12:29 110 MLS/HR Vancomycin HCl 500 mg QID PO 02/05/25 14:15 02/08/25 12:29 500 MG Metronidazole 100 ml @ 100 mls/hr Q8HR IV 02/05/25 22:00 02/08/25 07:32 100 MLS/HR Ondansetron HCl 4 mg Q8HPRN PRN IV 02/05/25 14:15 Clopidogrel Bisulfate 75 mg DAILY PO 02/08/25 10:00 02/08/25 10:28 75 MG Aspirin 81 mg DAILY PO 02/08/25 10:00 02/08/25 10:28 81 MG objective GENERAL: Alert and oriented x 3. No acute distress. EYES: PERRL, EOMI. Anicteric. HENT: Moist mucous membranes. LUNGS: Clear to auscultation bilaterally. CARDIOVASCULAR: Regular rate and rhythm. ABDOMEN: Soft, nontender and nondistended. EXTREMITIES: No edema. NEUROLOGIC: No focal neurological deficits. SKIN: Warm, dry. laboratory and microbiology Laboratory Tests 02/08/25 10:53 02/08/25 05:00 Test 02/08/25 05:00 Range/Units Serum Glucose 82 74-106 mg/dL Problem List NSTEMI rule out progressive coronary artery disease. Rule out InStent thrombosis/restenosis. Rule out structural heart disease. Coronary artery disease status post PTCA X 1 ADRIAN (noncompliant with dual antiplatelet therapy). Hypertension. Dyslipidemia. Hyperkalemia. Transaminitis. End-stage renal disease now on hemodialysis. Methamphetamine use. Tobacco use. Medical noncompliance Assessment/Plan Continued all current supportive medical care. Aspirin, Plavix. IV antibiotics as ordered. Dilaudid for pain management. Additional plan as per the hospital course. Dietary Evaluation Review Comments: Nutrition Recommendation 1) Consider Renal standard + cardiac diet 2) Nephro-saida 1 tab daily 3) Monitor PO intake, lab values, weight trend, and I/O Expected Outcomes/Goals: Lab values to improve Fu 3-5 days Plan discussed with: Patient MARIO CARNES MD Feb 08, 2025 12:51
[2025-02-08] MEDS ORDERED: ATOR40TA52 PO (18:48)
--- NOTE | 2025-02-08 22:57 | DVHDSRES ---
Discharge Summary Date of Admission Resident Creating Document: TERI RAMON RESIDENT Jan 29, 2025 at 18:06 Date of Discharge: Feb 08, 2025 Admitting Diagnosis hydronephrosis Labs/Diagnostic Data: Laboratory Results Test 02/08/25 18:36 02/08/25 10:53 02/08/25 05:00 02/07/25 05:00 POC Glucose 145 mg/dl (70-106) Potassium Level 5.0 mmol/L (3.5-5.1) White Blood Count 7.3 10^3/uL (4.4-10.8) Red Blood Count 2.99 10^6/uL (4.5-5.90) Hemoglobin 8.0 g/dL (13.5-17.5) Hematocrit 24.7 % (41.0-53.0) Mean Corpuscular Volume 82.7 fL (80.0-100.0) Mean Corpuscular Hemoglobin 26.7 pg (28.0-32.0) Mean Corpuscular Hemoglobin Concent 32.3 g/dL (32.0-36.0) Red Cell Distribution Width 21.4 % (11.8-14.3) Platelet Count 245 10^3/uL (140-450) Mean Platelet Volume 7.6 fL (6.9-10.8) Neutrophils (%) (Auto) 65.0 % (37.0-80.0) Lymphocytes (%) (Auto) 12.7 % (10.0-50.0) Monocytes (%) (Auto) 18.0 % (0.0-12.0) Eosinophils (%) (Auto) 3.5 % (0.0-7.0) Basophils (%) (Auto) 0.8 % (0.0-2.0) Neutrophils # (Auto) 4.8 10 ^3/uL (1.6-8.6) Lymphocytes # (Auto) 0.9 10 ^3/uL (0.4-5.4) Monocytes # (Auto) 1.3 10 ^3/uL (0-1.3) Eosinophils # (Auto) 0.3 10 ^3/uL (0-0.8) Basophils # (Auto) 0.1 10 ^3/uL (0-0.2) Nucleated Red Blood Cells 0.0 % Sodium Level 131 mmol/L (136-145) Chloride Level 98 mmol/L (98-107) Carbon Dioxide Level 22 mmol/L (20-31) Anion Gap 11 (5-15) Blood Urea Nitrogen 76 mg/dL (9-23) Creatinine 6.77 mg/dL (0.700-1.30) Glomerular Filtration Rate Calc 8 mL/min (>90) BUN/Creatinine Ratio 11.2 (10.0-20.0) Serum Glucose 82 mg/dL (74-106) Calcium Level 8.5 mg/dL (8.7-10.4) Prothrombin Time 11.9 sec (9.3-11.8) Prothrombin Time INR 1.14 (0.9-1.15) Activated Partial Thromboplast Time 43.3 SEC (24.5-34.5) Test 02/06/25 08:40 02/03/25 10:57 02/01/25 23:46 01/31/25 12:58 Phosphorus Level 4.9 mg/dL (2.4-5.1) Vitamin D 25-Hydroxy 38.9 ng/mL (30.0-100) Parathyroid Hormone (Intact) 267.0 pg/mL (18.4-80.1) Platelet Estimate Decreased Anisocytosis (manual) Slight Target Cells Few Ovalocytes Few [place] Cells Few Fibrinogen 309 mg/dL (177-375) Ferritin 69.1 ng/mL (22-322) Test 01/31/25 12:50 01/31/25 06:41 01/30/25 15:16 01/30/25 05:04 Iron Level 22 ug/dL (65-175) Total Iron Binding Capacity 262 ug/dL (250-425) Percent Iron Saturation 8.4 % (20-55) Total Bilirubin 0.3 mg/dL (0.2-1.0) Aspartate Amino Transferase (AST) 566 U/L (13-40) Alanine Aminotransferase (ALT) 1150 U/L (7-40) Alkaline Phosphatase 136 U/L (46-116) Total Protein 6.7 g/dL (5.7-8.2) Albumin 3.2 g/dL (3.2-4.8) Troponin I High Sensitivity 841 ng/L (</=54) Direct Bilirubin 0.3 mg/dL (<0.3) Test 01/30/25 00:30 01/29/25 20:26 01/29/25 18:48 Urine Color Brown (Yellow) Urine Clarity Ex.turbid (Clear) Urine pH 6.5 (5.0-9.0) Urine Specific [place] 1.013 (1.001-1.035) Urine Protein 2+ (Negative) Urine Ketones Negative (Negative) Urine Blood 3+ /uL (Negative) Urine Nitrite Negative (Negative) Urine Bilirubin Negative (Negative) Urine Urobilinogen Normal mg/dL (Negative) Urine Leukocyte Esterase 2+ /uL (Negative) Urine RBC 202 /hpf (0 - 3) Urine WBC Clumps Present /hpf (None Seen) Urine Microscopic WBC 2795 /HPF (0-3) Urine Squamous Epithelial Cells None seen /hpf (<5) Urine Bacteria None seen /hpf (None Seen) Urine Glucose Normal mg/dL (Normal) Urine Opiates Screen Neg (NEGATIVE) Urine Fentanyl Screen Neg (NEGATIVE) Urine Barbiturates Screen Neg (NEGATIVE) Urine Phencyclidine Screen Neg (NEGATIVE) Urine Amphetamines Screen Neg (NEGATIVE) Urine Benzodiazepines Screen Neg (NEGATIVE) Urine Cocaine Screen Neg (NEGATIVE) Urine Cannabinoids Screen Neg (NEGATIVE) Influenza Type A Antigen Negative (Negative) Influenza Type B Antigen Negative (Negative) SARS-CoV-2 Antigen (Rapid) Negative (NEGATIVE) Acetaminophen Level < 2.0 UG/ML (10.0-20.0) Hepatitis A IgM Antibody Negative Hepatitis B Surface Antigen Negative (Negative) Hepatitis B Core IgM Antibody Negative (Negative) Hepatitis C Antibody Positive (Negative) B-Type Natriuretic Peptide 2207.62 pg/mL (0-100) Plasma/Serum Blood Alcohol 4.4 mg/dL (<10) Other Laboratory Tests 02/08/25 10:53 02/08/25 05:00 Brief Hx & Hospital Course: Leobardo Fink is a 69-year-old male with past medical history of coronary artery disease with stent placement eight months ago, End-stage renal disease (makes urine and has had one dialysis at [facility]), came in with chief complaints of abdominal pain, vomiting and diarrhea. Patient was transferred from due to hyperkalemia and hydronephrosis with a Geo catheter and Baxter's catheter in place. EKG showed multiple lead T-wave changes and troponins were up trending, cardiology angiography which showed left main ostium narrowing of more than 90%, LAD more than 90% narrowed as well. The patient underwent cardiac catheterization with Impella and stent placement in the LAD on 02/07/25. Patient was given IV vancomycin and Flagyl during the hospitalization. The patient had accidental removal of the Geo catheter causing bleeding for which patient had to be transfused 1 PRBC. Renal ultrasound showed large left staghorn calculus. Nephrology was consulted and patient was followed up by them and scheduled for hemodialysis on 02/08/2025. Urology was consulted and nephrostomy tube was placed in the left side draining small amount of clear serosanguineous urine in the drainage bag. The patient was discharged home with [facility] for PT. Medications and recommendations were thoroughly explained to the patient and he demonstrated understanding of the same. Patient was scheduled for discharge Clinic and asked to follow up with PCP and get urology and cardiology referral. Past medical history: Coronary artery disease with a stent placement eight months ago, end-stage renal disease on hemodialysis Past surgical history: Denies any surgery in the past Family history: Patient states both mother and father due to [place] Social history: Patient lives at his home with his friends. He smokes 4-5 cigarettes per day now but previously used to smoke one pack per day for the past 60 years. He states he quit alcohol 37 years ago and does not drink anymore. He takes marijuana occasionally and the last one was one week ago. Used to take methamphetamine a while back. Allergies: None Code status: Full code General Appearance: Alert, Oriented X3, Cooperative, mild distress. Left nephrostomy tube and attached bag intact with dressing, drainage of moderate amount of clear serosanguineous urine in the drainage bag. HEENT: Atraumatic, Mucous membranes moist/pink. , Presence of tunneled dialysis catheter intact with dressing over it on the right upper chest, no swelling soakage or erythema Respiratory: Clear to auscultation, Normal air movement, No added sounds Cardiovascular: Regular rate, Normal S1, Normal S2, No murmurs Abdominal: Active bowel sounds, Soft, no distention, no tenderness Extremities: No edema, Normal pulses, No tenderness/swelling Skin: No Significant rash, except past surgical scars , Neuro: Normal speech, sensorimotor deficits none Psych/Mental Status: Mental status NL, Mood NL Nurse was there as labor arbitrator during examination Operations or Procedures 1.PROCEDURE(s): ABPL - CT AB PEL WO CON-NO ORAL OR IV REASON: bilateral hydronephrosis ORDER NUMBER(s): [id number], ACCESSION NUMBER(s): [id number] IMPRESSION: Relatively mild bilateral hydronephrosis with thickened urinary bladder and Baxter catheter in-situ. 2.PROCEDURE(s): CXRP - CHEST PORTABLE REASON: sob ORDER NUMBER(s): [id number], ACCESSION NUMBER(s): [id number] IMPRESSION: 1. Findings may represent congestive failure or fluid overload. 2. Internal jugular catheter in the superior vena cava above the right atrium. 3.PROCEDURE(s): KIDUS - KIDNEY REASON: bilateral hydronephrosis ORDER NUMBER(s): [id number], ACCESSION NUMBER(s): [id number] IMPRESSION: Left staghorn calculus. Moderate left hydronephrosis, mostly at the superior pole. Small nonobstructive calculi at the inferior pole of the right kidney. No right hydronephrosis. 4.PROCEDURE(s): BLDR - BLADDER REASON: Ureteral jetting ORDER NUMBER(s): [id number], ACCESSION NUMBER(s): [id number] IMPRESSION: Nondistended urinary bladder despite the Baxter catheter reportedly being clamped for 3 hours prior to the exam. Correlate clinically for possible causes of decreased urine output. The area of the ureterovesical orifice (ureteral jets) is not seen on the current study due to air bubbles within the Baxter catheter balloon obstructing the ultrasound beam. 5.PROCEDURE(s): F - NM MAG3 RENAL SCAN REASON: bilateral hydronephrosis ORDER NUMBER(s): [id number], ACCESSION NUMBER(s): [id number] Procedure: NM NM MAG3 RENAL SCAN Exam Date: 02/01/2025 09:29 AM. Clinical History: bilateral hydronephrosis Comparison Study: US BLADDER on DOS: 01/31/25, US KIDNEY on DOS: 01/30/25, US KIDNEY on DOS: 04/02/24, US KIDNEY on DOS: 05/27/23, US KIDNEY on DOS: 11/07/22 Nuclear Medicine Renal Scan with Lasix. Technique: Following the intravenous administration of 10.4 mCi of technetium 99m labeled MAG-3 , flow images were acquired in one second intervals. This was followed by functional imaging of the kidneys in the posterior projection which were obtained at 20 seconds intervals reconstructed into 2 minute frames for a total of 34 minutes. 40 mg of Lasix were given IV at the 10 minute nikhil. Flow curves and functional renogram curves were generated. Split function data were generated from the first three minutes of the study. Findings: The functional data was obtained with the renal pelvis included in the region of interest: Left: Peak time on the left is 39 minutes. Peak to 1/2 peak on the left is na minutes. Diuretic T 1/2 on the left is na minutes. Right: Peak time on the right is 25 minutes. Peak to 1/2 peak on the right is 46 minutes. Diuretic T 1/2 on the right is 46 minutes. Split function is 64 % on the left and 36 % on the right. IMPRESSION: Atrophic right kidney demonstrating minimal uptake and excretion. Delayed uptake and non responsiveness to diuretic administration in the left kidney suggesting functional obstruction. 6.ROCEDURE(s): INVENCAT - Insertion of Venous Cath REASON: HD CATH PL ORDER NUMBER(s): [id number], ACCESSION NUMBER(s): [id number] PROCEDURE: TUNNELED DIALYSIS CATHETER PLACEMENT USING FLUOROSCOPY AND ULTRASOUND HISTORY: 69 Male requiring dialysis for ESRD. PROCEDURE: Informed consent was obtained. The patient was placed supine on the interventional table. A limited localization ultrasound of the right neck was obtained. The right neck were prepped with chlorhexidine which was allowed to dry and draped in the usual sterile fashion. Time out was performed. IV sedation was administered. The skin and the soft tissues were infiltrated with 1% Lidocaine mixed with Epinephrine. With real-time ultrasound guidance, the internal jugular vein was accessed with a micropuncture kit, and an image documenting patency was recorded to PACS. A subcutaneous tunneled tract was created from the right upper chest to the venotomy site. A 14.5 Cypriot [place] path, 19 cm long hemodialysis catheter was advanced through the tunneled tract. Fluoroscopy was used to advance a guidewire through the internal jugular vein into the inferior vena cava. Following serial dilatation, a 15 Cypriot peel-away sheath was introduced, though which was advanced the catheter into the right atrium. The catheter tip position was confirmed with fluoroscopy. There was satisfactory flow in both lumens. The catheter lumens were flushed with saline and heparin was left indwelling in the catheter. The neck incision site was closed with a Vicryl suture and dressed sterilely. The catheter was sutured at the skin surface and exit site also dressed sterilely. No immediate complication was identified. FLUOROSCOPY TIME:0.5 minutes. DAP:40 SEDATION: Dr. Hinkle was personally responsible for the administration of moderate sedation during the procedure performed, including the use of an independent trained observer who had no other duties during the procedure. The drugs utilized were IV fentanyl and versed (see nursing log for details). The total time of supervision by the attending physician was approximately 30 minutes. FINDINGS: Widely patent right IJV. Post procedure image demonstrates smooth course of the hemodialysis catheter with the tip in the right atrium. IMPRESSION: 1. SUCCESSFUL TUNNELED DIALYSIS CATHETER PLACEMENT. THE CATHETER IS READY FOR IMMEDIATE USE. 7.PROCEDURE(s): KIDUS - KIDNEY REASON: EVALUATION FOR POSSIBLE HYDRONEPHROSIS/NEPHROSTOMY TUBE ORDER NUMBER(s): [id number], ACCESSION NUMBER(s): [id number] IMPRESSION: Moderate left hydronephrosis with multiple bilateral kidney stones better seen on prior CT. 8.PROCEDURE(s): PERNEPH - PERCUTANEOUS NEPHROSTOMY REASON: LEFT NEPH TUBE PLACEMENT ORDER NUMBER(s): [id number], ACCESSION NUMBER(s): [id number] IMPRESSION: Left hydronephrosis due to stricture of the renal pelvis and proximal ureter, status post placement of 8.5 greek left percutaneous nephrostomy catheter. 9.PROCEDURE(s): THOUS - US GUIDANCE FOR NEEDLE PLACEME REASON: LEFT NEPH TUBE PLACEMENT ORDER NUMBER(s): [id number], ACCESSION NUMBER(s): [id number] PERCUTANEOUS NEPHROSTOMY, US US GUIDANCE FOR NEEDLE PLACEME, HISTORY: LEFT NEPH TUBE PLACEMENT PROCEDURE: Informed consent was obtained. The patient was placed on the fluoroscopic table in a prone position and IV sedation administered. The left flank was prepped with chlorhexidine which was allowed to dry and draped in the usual sterile fashion. Time out was performed. and the soft tissues infiltrated with 1% lidocaine local anesthetic. Utilizing ultrasound guidance, a 21 gauge Chiba needle was advanced from a posterolateral approach into an lower pole calyx, and a small amount of contrast was injected under fluoroscopy to confirm positioning. Over a mandril wire, exchange was made to a non-vascular access set, through which was advanced an 0.035 wire. Following serial dilation, an 8.5 Cypriot multipurpose nephrostomy catheter was placed with tip within the renal pelvis/adjacent calyx. Position was confirmed with antegrade nephrostogram. The catheter was secured in place and connected to gravity drainage. A sterile dressing was applied. No immediate complication was identified. DAP 29 mGy FLUOROSCOPY TIME: 5.0 minutes. CONTRAST USED: 20 mL . SEDATION: Dr. Chiara Mccartney was personally responsible for the administration of moderate sedation during the procedure performed, including the use of an independent trained observer who had no other duties during the procedure. The drugs utilized were IV fentanyl and versed (see nursing log for details). The total time of supervision by the attending physician was approximately 30 minutes. FINDINGS: Dilated left renal collecting system involving the calyces/renal pelvis. New 8.5 greek nephrostomy tube via a posterior lower pole calyceal access, with loop in the renal pelvis/adjacent calyx. A proximal ureteral stricture is noted. IMPRESSION: Left hydronephrosis due to stricture of the renal pelvis and proximal ureter, status post placement of 8.5 greek left percutaneous nephrostomy catheter. 10.DATE OF SURGERY: 02/01/2025 TECHNIQUES PERFORMED: * Ultrasound of the right iliac artery. * Management of conscious sedation. * Left heart catheterization. * Left ventriculogram. * [place] selective left and right coronary artery angiography. ASSISTANTS: Assisted by Keenan Smyth Carmira and Jori. INDICATION: As follows: The patient has underlying gwh-ZT-jpofnfori myocardial infarction. DESCRIPTION OF PROCEDURE: Risks and benefits discussed in standard manner. The risks and benefits have been explained and brought to the car barn laborer. Right radial area thoroughly cleaned with soap and Betadine. A 6-Cypriot arterial line has been placed. A 100 mcg of nitroglycerin, 2.5 mg of verapamil, 2000 units of heparin was given. TIG catheter 5-Cypriot 4.0 was passed and left coronary angio done. With the help of similar catheter, we also did the right coronary artery angiography. With the help of pigtail catheter, complete left heart cath also had been done. The left ventriculogram was done in the right anterior oblique view with a total of 20 mL of dye. Post-LV gram, left ventricular angiography had been performed with the help of pull-through technique. Aortic pressure was also performed. J-wire was passed. The pigtail catheter also has been discontinued. Procedure completed. These were no complications. The patient did very well. Please note that when the TIG catheter was engaged in the left main, the blood pressure dropped down from 110 down to 40. CONCLUSIONS: As follows: * The patient's left main at ostium is narrowed, more than 90%, short left main. * Left anterior descending artery in its mid region is narrowed 90%. * Circumflex and obtuse marginal artery normal. * The right coronary artery is a large dominant artery, normal. * Ejection fraction is 10%. PLAN OF ACTION: Dr. Saeed if he can do Impella assisted left main coronary intervention and a stent in the left anterior descending artery, very high risk present. Discussed with Dr. Castro. Emergency care done on 02/01/2025 11.DATE OF SURGERY: 02/07/2025 TECHNIQUE PERFORMED: * Emergency case. * Insertion of 6-Cypriot arterial line in the right radial artery. * Abdominal aortogram. * Bilateral iliac artery and lower extremity angiography. * Insertion of the Impella device in the left ventricle under fluoroscopy guidance. * Balloon angioplasty of the left main with 3.0 x 8 mm length noncompliant balloon. * Stenting and angioplasty of the ostial of the left main with 3.5 x 8 mm length [place] stent of the Ferfics. * Intravascular ultrasound of the left main and also left anterior descending artery. * Perclose of the right femoral artery. * Perclose of the left femoral artery. SURGEONS: Linda Turner MD and Aman Saeed MD. Both are the equal surgeon. ASSISTANTS: They were assisted by Cuong Muro. COMPLICATIONS: None. INDICATIONS: The patient has left main ostial stenosis in the range of 95%. The patient has poor function. He is not a surgical candidate. Systolic congestive heart failure, known ST elevation [place]. DESCRIPTION OF PROCEDURE: Risks and benefits all have been explained to patient, understood and accepted very well. In a standard manner, the patient was brought to car barn laborer. Left and right groin were shaved, cleaned with soap and Betadine. A 6-Cypriot arterial line was placed. Abdominal aortography was done. Bilateral iliac artery angiography was done and subsequently now we have put the Perclose sheath over standard manner by doing the gradual dilation with a 7-Cypriot, 8-Cypriot and also with 14-Cypriot dilator and subsequently now we tried to put another wire through the sheath. We are unable to do it, so we went from the left femoral artery and we have done the left femoral artery. Puncture has been done and the Perclose sheath was also pulled into the left femoral artery. From the right femoral artery, we also put an Impella device. We went in the left ventricle and working very well. Subsequently, we put XB 3.5, 7-Cypriot guiding catheter and the angiography was done. Subsequently, now we have done IVUS also after putting the Spectra wire. AngioMax has already been started on the patient and then we concluded that ostial left main is narrowed more than 90%. Now, we put a balloon 3.0 x 10 mm in length noncompliant balloon. Balloon angioplasty of left main ostial had been done. Subsequently, we put a stent in the left main 3.5 x 8 mm length that had been deployed a total of 26 atmospheres. The stent size was increased almost to 3.8 mm in size. Balloon deflated, balloon had been discontinued. Angiography was done. Result was satisfactory. The guiding catheter was pushed in all the way into the left main all the way to the LAD and there was no drop of the blood pressure anymore. That confirmed that the artery is widely open. Balloon wire and catheter all had been discontinued. has been done without any complication. Condition at Discharge: Fair Final Diagnosis/Problems List # C diff acute gastroenteritis #transaminitis #Left hydronephrosis with left staghorn calculus #ESRD , on hemodialysis #Anemia of chronic disease likely due to above #Acute complicated UTI, ESBL positive(reports sent from [facility]) #NSTEMI likely Type 2 #CAD s/p stent in LAD #Hypertensive heart disease with acute systolic and diastolic CHF with EF 25%. #History of coronary artery disease #Dyslipidemia #Hyperkalemia,repleted #Hypoglycemia,corrected #Polysubstance use disorder including marijuana/amphetamine/tobacco #Medication non adherence #-MRSA positive Discharge Disposition: Home with Health Services Discharge Instruct/Medications Diet: Cardiac 2g Na,low cholest, Renal Activity: No Restrictions, As Tolerated Follow Up/Referral: follow up in dc clinic on 02/13/25 follow up with PCP in 1-2 weeks get Urology referral get urology referral Scheduled Aspirin (Aspirin Low Dose), 1 TAB PO DAILY Atorvastatin Calcium (Atorvastatin Calcium), 1 TAB PO HS Clopidogrel Bisulfate (Plavix), 1 TAB PO DAILY Furosemide (Lasix), 40 MG PO DAILY Furosemide (Lasix), 40 MG PO DAILY Vancomycin Hcl (Vancomycin Po), 250 MG PO QID Yeast (S. Boulardii)(S. Cerevi (Florastor), 250 MG PO DAILY Discharge Statement: "Patient was advised to return to the ER or call 911 if any headaches, dizziness, shortness of breath, chest pain, abdominal pain, bleeding, fevers, or worsening of medical condition. Patient was counseled about treatment plan, medications, possible side effects, patientverbalized understanding. All questions were answered to the best of my ability. This discharge took greater then 30 minutes in planning, reviewing documentation, counseling the patient, and discussing with other team members." ASSESSMENT ASSESSMENT Assessment C Diff Gastroenteritis Date of Service: Feb 08, 2025 Billing Provider: LIVIA THOMAS MD Common Visit Codes: 78419-ZOJ/OBS DISCH DAY >30min TERI RAMON RESIDENT Feb 08, 2025 22:57
== END 2025-02-08 20:15 | disposition home health service (06) | DRG 215 ==
LOC: ER 15:49 → EDBD 15:49 → OVERFLOW 18:06 → TELE-EAST 01-30 17:45
PROVIDERS: ADMIT Internal Medicine; ATTEND Internal Medicine
PROC: 5A1D70Z Performance of Urinary Filtration, Intermittent, Less than 6 Hours Per Day (ICD-10-PCS; 2025-01-31)
PROC: 4A023N7 Measurement of Cardiac Sampling and Pressure, Left Heart, Percutaneous Approach (ICD-10-PCS; 2025-02-01)
PROC: B211YZZ Fluoroscopy of Multiple Coronary Arteries using Other Contrast (ICD-10-PCS; 2025-02-01)
PROC: B215YZZ Fluoroscopy of Left Heart using Other Contrast (ICD-10-PCS; 2025-02-01)
PROC: 30233N1 Transfusion of Nonautologous Red Blood Cells into Peripheral Vein, Percutaneous Approach (ICD-10-PCS; 2025-02-02)
PROC: 0JH60XZ Insertion of Tunneled Vascular Access Device into Chest Subcutaneous Tissue and Fascia, Open Approach (ICD-10-PCS; 2025-02-02)
PROC: 02H633Z Insertion of Infusion Device into Right Atrium, Percutaneous Approach (ICD-10-PCS; 2025-02-02)
PROC: B548ZZA Ultrasonography of Superior Vena Cava, Guidance (ICD-10-PCS; 2025-02-02)
PROC: B518YZA Fluoroscopy of Superior Vena Cava using Other Contrast, Guidance (ICD-10-PCS; 2025-02-02)
PROC: 5A1D70Z Performance of Urinary Filtration, Intermittent, Less than 6 Hours Per Day (ICD-10-PCS; 2025-02-02)
PROC: 0T9430Z Drainage of Left Kidney Pelvis with Drainage Device, Percutaneous Approach (ICD-10-PCS; 2025-02-06)
PROC: BT12YZZ Fluoroscopy of Left Kidney using Other Contrast (ICD-10-PCS; 2025-02-06)
PROC: 02HA3RZ Insertion of Short-term External Heart Assist System into Heart, Percutaneous Approach (ICD-10-PCS; principal; 2025-02-07)
PROC: 027034Z Dilation of Coronary Artery, One Artery with Drug-eluting Intraluminal Device, Percutaneous Approach (ICD-10-PCS; 2025-02-07)
PROC: 5A0221D Assistance with Cardiac Output using Impeller Pump, Continuous (ICD-10-PCS; 2025-02-07)
PROC: B41GYZZ Fluoroscopy of Left Lower Extremity Arteries using Other Contrast (ICD-10-PCS; 2025-02-07)
PROC: B41FYZZ Fluoroscopy of Right Lower Extremity Arteries using Other Contrast (ICD-10-PCS; 2025-02-07)
PROC: B241ZZ3 Ultrasonography of Multiple Coronary Arteries, Intravascular (ICD-10-PCS; 2025-02-07)
PROC: 4A023N7 Measurement of Cardiac Sampling and Pressure, Left Heart, Percutaneous Approach (ICD-10-PCS; 2025-02-07)
PROC: B211YZZ Fluoroscopy of Multiple Coronary Arteries using Other Contrast (ICD-10-PCS; 2025-02-07)
PROC: B410YZZ Fluoroscopy of Abdominal Aorta using Other Contrast (ICD-10-PCS; 2025-02-07)
DX: I13.2 Hypertensive heart and chronic kidney disease with heart failure and with stage 5 chronic kidney disease, or end stage renal disease (principal); I21.A1 Myocardial infarction type 2; I50.43 Acute on chronic combined systolic (congestive) and diastolic (congestive) heart failure; N18.6 End stage renal disease; N13.6 Pyonephrosis; A04.72 Enterocolitis due to Clostridium difficile, not specified as recurrent; D68.9 Coagulation defect, unspecified; B19.10 Unspecified viral hepatitis B without hepatic coma; N25.81 Secondary hyperparathyroidism of renal origin; N17.9 Acute kidney failure, unspecified; I25.10 Atherosclerotic heart disease of native coronary artery without angina pectoris; E87.5 Hyperkalemia; E78.5 Hyperlipidemia, unspecified; E83.39 Other disorders of phosphorus metabolism; D50.9 Iron deficiency anemia, unspecified; I45.10 Unspecified right bundle-branch block; Z99.2 Dependence on renal dialysis; Z20.822 Contact with and (suspected) exposure to COVID-19; Z91.199 Patient's noncompliance with other medical treatment and regimen due to unspecified reason; Z98.61 Coronary angioplasty status; R74.01 Elevation of levels of liver transaminase levels; Z82.3 Family history of stroke; F17.210 Nicotine dependence, cigarettes, uncomplicated; D63.1 Anemia in chronic kidney disease; E16.2 Hypoglycemia, unspecified; F15.10 Other stimulant abuse, uncomplicated; Z71.51 Drug abuse counseling and surveillance of drug abuser; Z79.899 Other long term (current) drug therapy
CPT/HCPCS: 33990; 36415; 36558; 50430; 71045; 74176; 74425; 76775; 76857; 76942; 77001; 78707; 80048; 80053; 80074; 80076; 80307; 80320; 80329; 81001; 82306; 82728; 82962; 83540; 83550; 83880; 83970; 84100; 84132; 84484; 85014; 85018; 85025; 85384; 85610; 85730; 86850; 86900; 86901; 86920; 87081; 87086; 87426; 87493; 87804; 90935; 92941; 92978; 92979; 93005; 93306; 93452; 93458; 97163; 99152; G0378; J1335; J1756; J1815; J1885; J2250; J2405; J2470; J2543; J3490; Q9967